=== PATIENT | female | born 1960 | race Caucasian/White ===

== ENCOUNTER → 2023-12-05 10:55 | Outpatient (REF) | payer MEDICARE, SELFPAY | LOC: RAD 10:55 | PROVIDERS: ATTENDING PHYSICIAN Nurse Practitioner Adult Health; FAMILY PHYSICIAN Family Medicine | DX: J90 Pleural effusion, not elsewhere classified (principal) | CPT/HCPCS: 71046 ==

== ENCOUNTER 2024-01-16 06:05 | Inpatient (IN) | payer MEDICARE, SELFPAY ==
[2024-01-15 09:31] VITALS: BMI 29.4
[2024-01-15 10:12] LABS: % Basophils 0.7 % (0-2); % Eosinophils 5.5 % (0-6); % Immature Granulocytes 0.5 % (0-0.5); % Neutrophils 70.3 % (42.2-75.2); Absolute Eosinophils 0.3 10^3/uL (0-0.7); Absolute Lymphocytes 0.9 10^3/uL (1.2-3.4); Absolute Monocytes 0.4 10^3/uL (0.1-0.6); Absolute Neutrophils 4.1 10^3/uL (1.4-6.5); Hematocrit 32.6 % (37.0-47.0); Mean Corp Hgb Conc. 30.7 g/dL (33.0-37.0); Mean Corpuscular Hgb 28.2 pg (27.0-31.0); Mean Corpuscular Volume 92.1 fL (81.0-99.0); Mean Platelet Volume 9.3 fL (7.4-10.4); Nucleated Red Blood Cells % 0 %; Platelet Count 212 10^3/uL (130-400); Red Blood Cell Count 3.54 10^6/uL (4.20-5.40); Red Cell Dist. Width 16.4 % (11.5-14.5); White Blood Cell Count 5.8 10^3/uL (4.8-10.8)
[2024-01-15 10:22] LABS: Blood Urea Nitrogen 35 mg/dl (7-17); Calcium 9.5 mg/dl (8.4-10.2); Carbon Dioxide 21 mmol/L (22-30); Chloride 105 mmol/L (98-107); Estimated Creatinine Clearance 73 ml/min; Glucose 93 mg/dl (70-99); Potassium 4.4 mmol/L (3.5-5.1); Sodium 138 mmol/L (135-145); eGFR > 60.00
[2024-01-15 10:24] LABS: INR 1.12; PT 14.2 Sec (11.4-14.6)
[2024-01-16] VITALS (15 sets, daily range): BP systolic 93–152; BP diastolic 39–98; BMI 29.8
[2024-01-16 06:56] LABS: Glucose - Point of Care 73 mg/dl (70-99)
--- NOTE | 2024-01-16 07:02 | W.SUR.PREOP ---
Pre-Operative Surgical Note
-
I have examined this patient prior to the performance of the scheduled procedure.
The patient's condition is unchanged from the time of the current History and
Physical and the patient is able to undergo the scheduled procedure.
[2024-01-16] MEDS: PERIDEX 0.12% ORAL RINSE 15 ML PO (07:17)
[2024-01-16] MEDS: BACTROBAN NASAL 1 GRAM NASAL (07:19)
[2024-01-16] MEDS: VANCOCIN 300 MG IV (07:22)
[2024-01-16] MEDS: VANCOCIN 300 ML IV (07:22)
[2024-01-16 09:17] LABS: ACT-LR - POC 302 Seconds (116-155)
--- NOTE | 2024-01-16 10:12 | W.IMMPOSTOP ---
Surgical Immed Post Op Note
-
Primary Surgeon: Suresh
Grey Goods Marker: Jeromy
Pre-op Diagnosis: LEFT carotid stenosis
Post-op Diagnosis: LEFT carotid stenosis
Procedure Performed: LEFT CEA
Anesthesia Type: General
Specimen / Cultures: Carotid plaque
Estimated Blood Loss: 25 cc
Complications: None
Operative Findings: carotid plaque/stenosis
Kenny Prince III, MD
[facility] Vascular Surgery
[phone] (qcjp)
--- NOTE | 2024-01-16 10:13 | OR.RPT ---
Operative Report
Operative Report
Date of Operation: 01/16/2024
Pre Op Diagnosis: Asymptomatic left carotid stenosis
Post Op Diagnosis: Asymptomatic left carotid stenosis
Procedure: LEFT carotid endarterectomy with patch angioplasty using bovine pericardium
Surgeon: Kenny Prince III, MD
Home Restoration Service Cleaner: FITO Millan (assisted with all portions of the procedure from incision to closure)
Anesthesia: General
Complications: None
History and Indications for Procedure: 63-year-old female with calcified left carotid stenosis, asymptomatic
Procedure in Detail: Ivy Krishnan was correctly identified and placed supine on the operating table. After adequate induction of anesthesia the left neck was positioned, prepped and draped in the usual sterile fashion. Preoperative antibiotics
were administered. A timeout procedure was performed with the nursing and anesthesia staff confirming the patients identity as well as the nature and laterality of the procedure.
The carotid bifurcation was marked with ultrasound at the beginning of the case. The incision was planned accordingly. An incision was made along the anterior border of the left sternocleidomastoid muscle. Electrocautery was used to divide the
subcutaneous tissue and platysma. The carotid sheath was entered with sharp dissection. The internal jugular vein was retracted laterally. The vagus nerve was identified and protected throughout the case. The common carotid artery was identified at
the base of this incision and carefully encircled with a vessel loop. The patient was systemically heparinized. The dissection was continued distally towards the carotid bifurcation. The facial vein was skeletonized, ligated and divided between ties
and clips. The proximal external carotid artery was encircled with a vessel loop. The distal internal carotid artery was encircled with a vessel loop at a soft spot on the artery beyond the plaque.
The internal vessel loop was secured followed by the common and external. An arteriotomy was made on the distal common carotid artery with an 11-blade. This was extended proximally and distally with [place]obedo scissors. The arteriotomy was extended
distally through the plaque to an area of normal appearing internal carotid artery. The distal vessel loop was replaced with a short tip hockey-stick type vascular clamp. An endarterectomy was performed with a [place] elevator in the standard
fashion. The proximal extent of the plaque was transected with scissors. The distal end of the plaque in the internal carotid artery feathered very nicely with no distal intimal flap identified. The plaque extending into the external carotid artery
was everted. Once the plaque was fully removed the endarterectomy plane was irrigated with heparinized saline and any loose fronds of tissue were removed. A pre-cut piece of bovine pericardium was sewn in place using a running 6-0 Prolene suture.
Prior to the completion of the patch the common carotid was allowed to forward bleed and the external was allowed to back bleed. The area under the patch was irrigated with heparinized saline to remove any potential thrombus or debris. The
anastomosis was completed.
The external vessel loop was released first, followed by the common and then the internal. There was an excellent pulse in the distal internal carotid artery. An excellent quality Doppler signal in the distal internal carotid artery was also
confirmed. The patch suture line was closely inspected for hemostasis and was achieved. Protamine was administered. Hemostasis was achieved in the wound bed. The wound was irrigated with saline solution.
The wound was then closed in layers. Sterile dressings were applied. The patient awoke from anesthesia with no immediate neuro deficits and was taken to the PACU in stable condition.
Attestation: I was present and responsible for the entire procedure
Signed:
Kenny Prince III, MD
[facility] Vascular Surgery
[phone] (cell)
[2024-01-16 10:58] LABS: Glucose - Point of Care 118 mg/dl (70-99)
[2024-01-16] MEDS: DILAUDID 0.5 MG IV ×2 (11:02→11:26)
[2024-01-16 11:25] LABS: Hematocrit 29.3 % (37.0-47.0); Hemoglobin 9.2 g/dL (12.0-16.0); Mean Corp Hgb Conc. 31.4 g/dL (33.0-37.0); Mean Corpuscular Hgb 28.5 pg (27.0-31.0); Mean Corpuscular Volume 90.7 fL (81.0-99.0); Platelet Count 177 10^3/uL (130-400); Red Blood Cell Count 3.23 10^6/uL (4.20-5.40); Red Cell Dist. Width 16.4 % (11.5-14.5); White Blood Cell Count 9.5 10^3/uL (4.8-10.8)
[2024-01-16 11:28] LABS: INR 1.18; PT 14.8 Sec (11.4-14.6)
[2024-01-16 11:29] LABS: APTT 35.9 Sec (23.4-35.0)
[2024-01-16] MEDS: NSS 1000 IV (11:34)
[2024-01-16 11:50] LABS: Blood Urea Nitrogen 24 mg/dl (7-17); Calcium 8.1 mg/dl (8.4-10.2); Carbon Dioxide 20 mmol/L (22-30); Chloride 112 mmol/L (98-107); Estimated Creatinine Clearance 97 ml/min; Glucose 134 mg/dl (70-99); Potassium 3.9 mmol/L (3.5-5.1); Sodium 138 mmol/L (135-145); eGFR > 60.00
[2024-01-16 12:40] LABS: Glucose - Point of Care 155 mg/dl (70-99)
[2024-01-16] MEDS: NOVOLOG FLEXPEN-LOW RESISTANCE SC (12:47)
[2024-01-16] MEDS: TYLENOL 650 MG PO ×2 (12:51→17:29)
[2024-01-16] MEDS: NEO-SYNEPHRINE 250 IV (12:51)
[2024-01-16] MEDS: ROXICODONE 5 MG PO (13:31)
--- NOTE | 2024-01-16 13:51 | PTCARENOTE ---
Updated assessment, vital signs ongoing and as documented. Follow up Icu procedures and protocols. Ongoing neuro checks as ordered. Family at bedside for update. Follow up with field installer team. Follow up with vascular team at bedside. Follow up vs
trends, map trends and ongoing neuro assessments. Patient remains aaox3, tongue midline, smile symmetrical, denies headache, only complaints of pain at incisional site and back of neck from previous surgeries(stenosis, fusion, and spinal arthritis)
Continue follow up assessment data.
[2024-01-16 14:09] LABS: Magnesium 1.2 mg/dl (1.6-2.3)
--- NOTE | 2024-01-16 15:06 | PTCARENOTE ---
Updated lab trends with vascular team. Lytes as ordered, continue ongoing assessment trends. Patient sleeping lightly, improved pain at this assessment, ice pack off and on to site with some relief. Continue follow rounds as per orders and protocol.
[2024-01-16] MEDS: MAGNESIUM SULFATE 50 IV (15:10)
[2024-01-16] MEDS: NEURONTIN 600 MG PO ×2 (15:11→20:51)
--- NOTE | 2024-01-16 16:45 | CON.INTV ---
Addendum entered and electronically signed by Aki Rose MD 01/16/24 18:06:
I saw and evaluated this patient with the resident. I reviewed history and physical examination, I agree with findings and plan.
Will continue with routine postoperative care.
Currently the patient is hemodynamically stable.
Her incision is intact. Patient does not have any stridor. There is no evidence for hematoma.
Will continue with ICU hemodynamic monitoring and frequent neurovascular checks per protocol.
Original Note:
Documented by User: Deisy Pandya MD, Resident 01/16/24 17:59
Consultation
Consultation Request
Date/Time Consultation Requested: 01/16/2024
Date/Time Consultation Performed: 01/16/2024
Medical History
-
Chief Complaint: Left carotid stenosis
History of Present Illness:
63 yo, female is here today for an elective left carotid endarterectomy. She was diagnosed with left internal carotid artery stenosis ( 85%)during the process of getting evaluated for elective aortic valve replacement/CABG that was done on
10/18/2023. Patient underwent left carotid endarterectomy with patch angioplasty today. No postoperative complications. Patient is comfortable and asymptomatic.
Past Medical History
Past Medical History: CAD, HTN, Hypercholesterolemia, NIDDM, Valvular Disease and Other ([id number] history of smoking, herniated disc, chronic back pain and opiate dependence)
Past Surgical History: Other (Hernia repair 2009, spinal surgery 2018, aortic valve replacement/CABG 2023, right carotid stent 2018)
Social History
Tobacco: Former Smoker (Quit smoking in 2022)
Alcohol: Occasional
Drug: None
Allergies / Home Medications
Allergies
Allergy/AdvReac Type Severity Reaction Status Date / Time
clams Allergy Vomiting Verified 01/10/24 13:08
Penicillins Allergy Hives Verified 01/10/24 13:08
pepper (genus Capsicum) Allergy Vomiting Verified 01/10/24 13:08
Home Medications
�Medication �Instructions �Recorded �Confirmed �Last Taken �Type
gabapentin 600 mg tablet 600 mg PO TID Neuropathic pain 10/03/23 01/16/24 01/15/24 18:00 History
acetaminophen 650 mg 1,300 mg PO BIDPRN PRN mild pain 10/08/23 01/16/24 01/15/24 18:00 History
tablet,extended release
aspirin 81 mg tablet,delayed 81 mg PO DAILY Blood Clot 10/08/23 01/16/24 01/15/24 18:00 History
release Prevention/Tx
ascorbic acid (vitamin C) 500 mg 500 mg PO DAILY Supplement #30 tabs 10/21/23 01/16/24 01/15/24 18:00 Rx
tablet (Vitamin C)
atenolol 25 mg tablet 25 mg PO HS Blood Pressure #30 tabs 10/21/23 01/16/24 01/15/24 18:00 Rx
atorvastatin 40 mg tablet 40 mg PO QPM High cholesterol #30 10/21/23 01/16/24 01/15/24 18:00 Rx
tabs
citalopram 40 mg tablet 40 mg PO HS Depression/Anxiety #10 10/21/23 01/16/24 01/15/24 18:00 Rx
tabs
diazepam 10 mg tablet 10 mg PO HSPRN PRN anxiety #10 tabs 10/21/23 01/16/24 01/15/24 18:00 Rx
ferrous sulfate 325 mg (65 mg 325 mg PO DAILY anemia #30 tabs 10/21/23 01/16/24 01/15/24 09:00 Rx
iron) tablet (FeroSul)
furosemide 20 mg tablet (Lasix) 20 mg PO DAILY Fluid 10/21/23 01/16/24 01/15/24 09:00 Rx
retention/Swelling #5 tabs
metformin 500 mg tablet 500 mg PO BID Diabetes #60 tabs 10/21/23 01/16/24 01/15/24 18:00 Rx
pantoprazole 40 mg tablet,delayed 40 mg PO DAILY #30 tabs 10/21/23 01/16/24 01/15/24 09:00 Rx
release
oxycodone-acetaminophen 10 mg-325 1 tab PO 5/D 01/10/24 01/16/24 01/16/24 03:30 History
mg tablet
Review of Systems
-
History Source: Patient
All other systems: Negative unless noted
Vitals / Labs / Diagnostic Testing
Vital Signs
Temp Pulse Resp BP Pulse Ox
98.0 F 76 13 148/66 96
01/16/24 15:00 01/16/24 16:30 01/16/24 16:30 01/16/24 16:00 01/16/24 16:30
Lab Data
01/16/24 11:06
01/16/24 11:06
Laboratory Results
01/16/24
11:06
PT 14.8 H
INR 1.18
APTT 35.9 H
Microbiology
01/15/24 09:41 Nose MRSA Screen - Final
No Methicillin Resistant Staphylococcus aureus isolated.
Diagnostic Testing:
Physical Exam
-
HEENT: Normocephalic
Cardiovascular: S1/S2 and Regular Rhythm
Respiratory: Clear
GI: Soft, Non Distended, Non Tender and Normal Bowel Sounds
Neurology: Awake, Alert, Oriented, AO x 3 and Other (Cranial nerves II to XII grossly intact, no focal neurological deficits, DTR/sensations/motor strength intact throughout)
Skin: Warm and Dry
General: Comfortable
Assessment
-
63-year-old female, underwent elective left carotid endarterectomy/angioplasty, POD day 0, transferred to the ICU for further management.
DATA:
Chest x-ray 01/16/2024:
Small left pleural effusion with subsegmental compressive atelectasis at the left lung base
Mild diffuse interstitial fibrosis
Stable postoperative changes with wire sternal sutures and prosthetic cardiac valve
MARVIN, 10/18/2023:
CONCLUSIONS
�Normal biventricular systolic function.� LVEF is 55-60%.� Severe aortic
�stenosis with severe leaflet calcification/restriction.� Calcified, restricted
�aortic stenosis with a mobile plaque on the right leaflet.� Restricted,
�calcified mitral regurgitation without stenosis and mild/moderate
�regurgitation.� Severely diseased thoracic aorta with a large (>1 cm) atheroma
�on the lesser curvature.
CTA Head/Neck, 10/12/2023:
IMPRESSION:
1).There is moderate volume partially calcific atherosclerotic plaque at the left carotid bifurcation extending into the origin of the left internal carotid artery associated with approximately 85% stenosis of the left internal carotid artery at its
origin
2).There is moderate volume partially calcific atherosclerotic plaque in the distal right common carotid artery just proximal to the carotid bifurcation associated with less than 50% stenosis. The right carotid bifurcation is widely patent and free
of any areas of significant stenosis
3). There is partially calcific atherosclerotic plaque in supraclinoid segments of both internal carotid arteries associated with near 70% stenosis bilaterally
4). There is degenerative disc disease with postoperative changes in the cervical spine as detailed above.
5). There is partially loculated right pleural effusion with underlying atelectasis.
Conditions prior to admission
Hypertension
Hyperlipidemia
CAD, s/p CABG
Aortic stenosis, s/p aortic valve replacement
Depression/anxiety
Former smoker
DM II
Herniated disk, s/p spinal surgery 2019
Chronic back pain & opiate dependence
IMPRESSION and PLAN
S/p left carotid endarterectomy/angioplasty, POD #0
No postoperative complications
Frequent neuro and vascular checks,
Vascular following up, operative report reviewed
Wound care, monitor incision for hematoma
Phenylephrine IV per protocol, to maintain MAP> 65
Continue on aspirin, Plavix, atorvastatin
Magnesium-1.2
Replete magnesium, 2 gm
Check magnesium level a.m.
Restart antihypertensive medications, use nicardipine drip needed, monitor blood pressure
Chronic anemia, follow hemoglobin
Follow blood sugars
Advance diet as tolerated
DVT prophylaxis�heparin sc

Documented by User: Aki Rose MD 01/16/24 18:05
Consultation
Consultation Request
Requesting Provider: Dr. Prince
Performing Provider: Dr. Aki Lyn
Reason for Consultation: Postoperative ICU care-status post carotic endarterectomy
Medical History
Family History
Family History: Reviewed & Not Pertinent
Physical Exam
-
HEENT: Other (Incision is intact. No stridor on exam.)
Assessment
-
63-year-old female, underwent elective left carotid endarterectomy/angioplasty, POD day 0, transferred to the ICU for further management.
Conditions prior to admission
Hypertension
Hyperlipidemia
CAD, s/p CABG
Aortic stenosis, s/p aortic valve replacement
Depression/anxiety
Former smoker
DM II
Herniated disk, s/p spinal surgery 2019
Chronic back pain & opiate dependence
Plan and recommendations
S/p left carotid endarterectomy/angioplasty, POD #0
No postoperative complications, doing well in the critical care unit.
Frequent neuro and vascular checks per protocol,
Vascular following up, operative report reviewed
Wound care, monitor incision for hematoma, there is no stridor on exam.
Phenylephrine IV per protocol, to maintain MAP> 65 if necessary.
Continue on aspirin, Plavix, atorvastatin
Magnesium-1.2, this has been repleted.
Check magnesium level a.m.
Restart antihypertensive medications, use nicardipine drip if needed, monitor blood pressure
Arterial line in place
Chronic anemia, follow hemoglobin
Follow blood sugars
Advance diet as tolerated
Increase activity as able
DVT prophylaxis�heparin sc
Maintain ICU hemodynamic monitoring.
-----
DATA:
Chest x-ray 01/16/2024:
Small left pleural effusion with subsegmental compressive atelectasis at the left lung base
Mild diffuse interstitial fibrosis
Stable postoperative changes with wire sternal sutures and prosthetic cardiac valve
MARVIN, 10/18/2023:
CONCLUSIONS
�Normal biventricular systolic function.� LVEF is 55-60%.� Severe aortic
�stenosis with severe leaflet calcification/restriction.� Calcified, restricted
�aortic stenosis with a mobile plaque on the right leaflet.� Restricted,
�calcified mitral regurgitation without stenosis and mild/moderate
�regurgitation.� Severely diseased thoracic aorta with a large (>1 cm) atheroma
�on the lesser curvature.
CTA Head/Neck, 10/12/2023:
[2024-01-16] MEDS: ROXICODONE 10 MG PO ×2 (16:53→20:58)
[2024-01-16 17:06] LABS: Glucose - Point of Care 178 mg/dl (70-99)
[2024-01-16] MEDS: LIPITOR 40 MG PO (17:29)
[2024-01-16] MEDS: NOVOLOG FLEXPEN-LOW RESISTANCE 1 UNITS SC (17:29)
--- NOTE | 2024-01-16 18:00 | PTCARENOTE ---
Assessment unchanged. Patient awake alert oriented, talking on phone, conversing with medical staff. Update at bedside, and in ICU with naval architect specialist team. IVF continue, neosynephrine remains off maintaining parameters. Lyte replacement completed will
follow lab trends and update. Continue neuro-checks, hourly rounds and supportive care.
--- NOTE | 2024-01-16 20:44 | PTCARENOTE ---
Pt received at 19:00. Ox3, appropriate, pleasant and cooperative. L neck incision well approximated, minimal bruising. c/o pain in L neck, PRN pain meds given as ordered. L radial A-line zeroed/transduced, correlating with cuff pressure. MAP goal
70-90, goal maintained.
[2024-01-16] MEDS: CELEXA 40 MG PO (20:51)
[2024-01-16] MEDS: HEPARIN 5000 UNITS SC (20:51)
[2024-01-16] MEDS: TENORMIN 25 MG PO (20:51)
[2024-01-16 22:07] LABS: Glucose - Point of Care 152 mg/dl (70-99)
[2024-01-17] VITALS (10 sets, daily range): BP systolic 94–127; BP diastolic 53–80; BMI 31.0
[2024-01-17] MEDS: ROXICODONE 10 MG PO ×3 (00:59→11:44)
[2024-01-17] MEDS: TYLENOL 650 MG PO ×3 (00:59→11:43)
[2024-01-17] MEDS: NSS 1000 IV (01:00)
--- NOTE | 2024-01-17 01:17 | PTCARENOTE ---
Assessment unchanged. C/O throat pain, chloraseptic spray ordered. Denies pain at incision site. C/O neck pain--chronic pain--PRN oxy given as ordered.
[2024-01-17] MEDS: DILAUDID 0.5 MG IV (02:08)
[2024-01-17] MEDS: CHLORASEPTIC/SORE THROAT SPRAY 1 SPRAY PO (02:09)
--- NOTE | 2024-01-17 04:10 | PTCARENOTE ---
Pt on neosynephrine at 10mcg/min. MAP goal 70-90, with dex off, MAP <70--with dex at 20mcg/min MAP >90. Pt continues to c/o pain the back of her neck, given PRN dilaudid--effective. Safe environment maintained, call abernathy within reach.
[2024-01-17 04:11] LABS: Hematocrit 27.3 % (37.0-47.0); Hemoglobin 8.4 g/dL (12.0-16.0); Mean Corp Hgb Conc. 30.8 g/dL (33.0-37.0); Mean Corpuscular Hgb 28.5 pg (27.0-31.0); Mean Corpuscular Volume 92.5 fL (81.0-99.0); Mean Platelet Volume 9.2 fL (7.4-10.4); Platelet Count 200 10^3/uL (130-400); Red Blood Cell Count 2.95 10^6/uL (4.20-5.40); Red Cell Dist. Width 16.3 % (11.5-14.5); White Blood Cell Count 8.2 10^3/uL (4.8-10.8)
[2024-01-17 04:22] LABS: INR 1.16; PT 14.6 Sec (11.4-14.6)
[2024-01-17 04:23] LABS: APTT 31.8 Sec (23.4-35.0)
[2024-01-17 04:36] LABS: Blood Urea Nitrogen 15 mg/dl (7-17); Calcium 8.8 mg/dl (8.4-10.2); Carbon Dioxide 22 mmol/L (22-30); Chloride 108 mmol/L (98-107); Estimated Creatinine Clearance 99 ml/min; Glucose 96 mg/dl (70-99); Potassium 4.2 mmol/L (3.5-5.1); Sodium 136 mmol/L (135-145); eGFR > 60.00
[2024-01-17 07:14] LABS: Glucose - Point of Care 99 mg/dl (70-99)
[2024-01-17] MEDS: PROTONIX 40 MG PO (07:39)
[2024-01-17] MEDS: NEURONTIN 600 MG PO (07:39)
[2024-01-17] MEDS: ASPIR LOW (ENTERIC COATED) 81 MG PO (07:40)
[2024-01-17] MEDS: GLUCOPHAGE 500 MG PO (07:40)
[2024-01-17] MEDS: NOVOLOG FLEXPEN-LOW RESISTANCE SC ×2 (07:40→11:39)
[2024-01-17] MEDS: FEOSOL 325 MG PO (07:40)
[2024-01-17] MEDS: VITAMIN C 500 MG PO (07:40)
[2024-01-17] MEDS: HEPARIN 5000 UNITS SC (07:41)
--- NOTE | 2024-01-17 08:10 | W.PN.VS ---
Today's Communication / Plan
-
See below.
Assessment/Plan
-
Assessment: 63-year-old female POD #1 left carotid endarterectomy
Plan:
Discontinue arterial line
Discontinue IV fluids
OOB to chair with progression to ambulation as tolerated
Continue aspirin and statin therapy
Possible discharge later this afternoon pending toleration of ambulation and continued hemodynamic stability
Subjective Data
-
Date of Service: January 17, 2024
Patient seen and examined bedside, no acute events overnight. Patient offers no complaints. Reports adequate postoperative pain management. Does report continued chronic pain that is well-controlled with as needed pain medication. Tolerating
p.o. diet. Denies vision changes, unilateral weakness, facial droop, aphasia, dysarthria, or difficulty swallowing.
Objective Data
-
Vital Signs
Temp Pulse Resp BP Pulse Ox
98.3 F 68 15 99/60 97
01/17/24 07:34 01/17/24 03:45 01/17/24 03:45 01/17/24 02:01 01/17/24 03:45
Intake and Output
01/16/24 01/17/24 01/18/24
06:59 06:59 06:59
Intake Total 2683 / 3003 320 / 320
Output Total 1100 / 1500 400 / 400
Balance 1583 / 1503 -80 / -80
Intake:
Oral fluids 960 / 1200 240 / 240
IV fluids (Total) 1673 / 1753 80 / 80
Neopsynephrine 50mg/250ml 33 / 33 0 / 0
Normosol 200 / 200
Nss 1,000 ml @ 80 mls/hr IV . 1440 / 1520 80 / 80
[id number] EYAL Rx#:[id number]
IV piggybacks 50 / 50
Output:
Urine, Prince 500 / 500
Urine, Voided 600 / 1000 400 / 400
Other:
How many times incontinent 1
MODERATE amount urine
Lab Results
01/17/24 04:02
01/17/24 04:02
Calcium 8.8 mg/dl (8.4-10.2) 01/17/24 04:02
Magnesium 2.0 mg/dl (1.6-2.3) 01/17/24 04:02
Physical Exam
-
AAOx3, no apparent distress
Face symmetrical, left surgical neck incision CDI, no evidence of hematoma
No tachycardia
No dyspnea on room air
Bilateral upper extremities and lower extremities 5/5 strength and equal
ABD nondistended, nontender
--- NOTE | 2024-01-17 08:19 | PTCARENOTE ---
Update with vascular and dental assistant instructor teams this am. Plan to deline, cap ivf adv diet out of bed to chair and follow up afternoon reevaluation. Continue neuro-checks. Continue hourly rounds. Follow up assessment, vital signs ongoing and as
documented. Critcal care nursing in and out at bedside.
--- NOTE | 2024-01-17 09:42 | CM ---
CM following re: discharge planning.
Reviewed pt's chart, met with pt.
Pt is a 63 year old female, admitted with primary dx of POD #1 s/p left carotid endarterectomy. Per Vascular surgery pt probably will be discharged home this afternoon pending toleration of ambulation and continued hemodynamic stability. Pt is
aware, expressed her agreement and she stated her daughter will transport home at discharge.
Pt reports she lives with youngest daughter in a 2SH, 2 steps to enter, has 3 supportive children. 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 Pt reports she was going to outpatient
cardiac rehab and she would like to resume it at discharge. Pt reports she will resume outpatient cardiac rehab after 2 weeks of discharge. Pt reports no script for outpatient cardiac rehab is needed
PCP: Fransisco Reese
Pharmacy: [facility].
D/C plan: home with resumptions of cardiac rehab after 2 weeks of discharge. Daughter to transport.
No other discharge needs identified.
--- NOTE | 2024-01-17 10:42 | W.PN.INTV ---
Today's Communication / Plan
Recommendations
Continue postoperative care
Discontinue arterial line
Increase activity as able
Discharge planning
Sign off
Assessment
-
63-year-old female, underwent elective left carotid endarterectomy/angioplasty, POD day 0, transferred to the ICU for further management.
Conditions prior to admission
Hypertension
Hyperlipidemia
CAD, s/p CABG
Aortic stenosis, s/p aortic valve replacement
Depression/anxiety
Former smoker
DM II
Herniated disk, s/p spinal surgery 2019
Chronic back pain & opiate dependence
Plan and recommendations
S/p left carotid endarterectomy/angioplasty, POD #1
Doing very well today.
Pain is controlled
Neurologic semination stable without deficit.
Incision is intact, no stridor on exam. No hematoma.
Hemodynamically stable. Did not require Cardene drip.
Continue outpatient medications
Discontinue IV fluids
Magnesium has been repleted.
Renal function is normal.
Vascular correspondence reviewed.
Arterial line to be discontinued
Increase activity as able
Continue antiplatelets and statins.
Possible discharge later today.
Critical care team will sign off.
-----
DATA:
Chest x-ray 01/16/2024:
Small left pleural effusion with subsegmental compressive atelectasis at the left lung base
Mild diffuse interstitial fibrosis
Stable postoperative changes with wire sternal sutures and prosthetic cardiac valve
MARVIN, 10/18/2023:
CONCLUSIONS
�Normal biventricular systolic function.� LVEF is 55-60%.� Severe aortic
�stenosis with severe leaflet calcification/restriction.� Calcified, restricted
�aortic stenosis with a mobile plaque on the right leaflet.� Restricted,
�calcified mitral regurgitation without stenosis and mild/moderate
�regurgitation.� Severely diseased thoracic aorta with a large (>1 cm) atheroma
�on the lesser curvature.
CTA Head/Neck, 10/12/2023:
IMPRESSION:
1).There is moderate volume partially calcific atherosclerotic plaque at the left carotid bifurcation extending into the origin of the left internal carotid artery associated with approximately 85% stenosis of the left internal carotid artery at its
origin
2).There is moderate volume partially calcific atherosclerotic plaque in the distal right common carotid artery just proximal to the carotid bifurcation associated with less than 50% stenosis. The right carotid bifurcation is widely patent and free
of any areas of significant stenosis
3). There is partially calcific atherosclerotic plaque in supraclinoid segments of both internal carotid arteries associated with near 70% stenosis bilaterally
4). There is degenerative disc disease with postoperative changes in the cervical spine as detailed above.
5). There is partially loculated right pleural effusion with underlying atelectasis.
Subjective Dataa
Subjective Data
Date of Service:
Date of Service: January 17, 2024
Chief Complaint: Finisher Screwdown Follow Up (Status post coronary endarterectomy)
Subjective:
Patient stays at she had a good night.
Denies any pain.
Denies any headache or blurry vision.
Review of Systems
General: Fever (n)
Cardiopulmonary: Dyspnea (n) and Cough (n)
GI: Abdominal Pain (n), Nausea (n) and Vomiting (n)
Objective Data
Data Reviewed
Vital Signs / I&O / Oxygen:
Vital Signs
Temp Pulse Resp BP Pulse Ox
98.3 F 74 12 106/57 98
01/17/24 07:34 01/17/24 09:00 01/17/24 09:00 01/17/24 07:44 01/17/24 08:16
Intake and Output
01/16/24 01/17/24 01/18/24
06:59 06:59 06:59
Intake Total 2683 / 3003 344 / 344
Output Total 1100 / 1500 700 / 700
Balance 1583 / 1503 -356 / -356
SaO2 98
Nasal Cannula flow liters per 2
minute
Physical Exam
General: Comfortable
HEENT: Normocephalic, Other (No stridor on exam) and Other (Cervical incision intact. No hematoma.)
Cardiovascular: S1-S2
Respiratory: Clear and Non-Labored Respirations
GI: Soft and Non Distended
Neurology: Awake, Alert, Oriented and No Motor Deficits
Labs/Micro/Reports
Lab Data
01/17/24 04:02
01/17/24 04:02
Laboratory Results
01/16/24 01/17/24
11:06 04:02
PT 14.8 H 14.6
INR 1.18 1.16
APTT 35.9 H 31.8
Microbiology
01/15/24 09:41 Nose MRSA Screen - Final
No Methicillin Resistant Staphylococcus aureus isolated.
--- NOTE | 2024-01-17 11:37 | PTCARENOTE ---
Patient delined. IVF capped tolerating diet and po fluids. Out of bed ambulate room and to bathroom with supervision. Denies and incisional pain. Improved chronic back and neck pain in chair. Accu data as documented. Await afternoon follow up and
evaluation. Assessment unchanged.
[2024-01-17 11:46] LABS: Glucose - Point of Care 113 mg/dl (70-99)
--- NOTE | 2024-01-17 12:39 | PTCARENOTE ---
Patient ambulate with staff at side. Walked entire IMU and low side of [facility] with supervision. Tolerated very well, VSS pre and post ambulation. !00
--- NOTE | 2024-01-17 14:30 | PTCARENOTE ---
Update with vascular at bedside with family. Delined, update discharge plan of cares and teaching prepping for dc to home. Reviewed and reinforced with family at bedside.
--- NOTE | 2024-01-17 14:57 | PTCARENOTE ---
Discharge instructions reviewed and provide for patient and family. Verbalizes satisfaction of cares, verbalizes understanding of instructions. Discharge.
--- NOTE | 2024-01-17 15:31 | W.DCSUMMARY ---
Discharge Summary
Discharge Data
Date of Admission: 01/16/24
Date of Discharge: 01/17/24
-
Pending Results: No
Hospital Course
Attending: Kenny Prince III, MD
Consultants: Pulmonary medicine
Allergies: Clams, penicillin, pepper
Procedure with date: LEFT carotid endarterectomy with patch angioplasty using bovine pericardium, 01/16/2024
History of present illness: The patient is an 63-year-old female with multiple medical conditions including: carotid stenosis, shortness of breath, aortic stenosis, depression, obesity, diabetes, hyperlipidemia, hypertension, coronary artery
disease, COPD, spinal stenosis, pleural fusion, pneumonia, COPD, and kidney stones. Patient presented on 01/16/2024 for scheduled procedure with Dr. Prince. Patient presented at baseline health with no reports of recent illness or trauma.
Hospital Course: Briefly, the patient underwent scheduled left carotid endarterectomy without complications, and recovered in PACU. Following recovery phase one and two patient was transferred to intensive care unit per protocol for continued
hemodynamic monitoring. Glue Plant Operator consulted to aid in medical management from a critical care perspective. Briefly postoperative required minimal dose of Jack-Synephrine infusion for blood pressure stability, was discontinued overnight. POD #1
(01/17/2024) Patient neurologically intact, face symmetrical, and tolerating PO diet. Surgical left neck incision clean, dry, and intact with suture line well approximated and soft. No evidence of hematoma. Arterial line and IV fluids discontinued.
Patient able to ambulate without difficulty or incident. Patient stable for discharge to home.
Prescriptions and follow up appointment are included in the DC summary food concession manager note. All instructions were given to the patient in both written and verbal form and the patient expressed understanding.
Discharge Plan
-
Patient Disposition: Home (Routine Discharge)
Discharge Diagnosis/Procedures: Left carotid endarterectomy
Condition: Good
Diet: As tolerated
Activity: No strenuous activity
Driving Restrictions: Not until seen by your Dr
Bathing Restrictions: OK to Shower
Activity Restrictions/Additional Instructions:
If you experience severe constant headache, weakness to an arm or leg, change in vision, trouble speaking or any stroke-like symptom, call 911 immediately
If you experience swelling, increased bruising, drainage from neck site, or fever, please call the office
Stand Alone Forms: DC Instr - Vascular OR
Referrals:
Fransisco Reese MD [Family Provider] -
Jenny Tarango CRNP [Specified Professional Personl] - 01/30/24 10:45 am
Prescriptions:
Continued
gabapentin 600 mg Tablet
600 mg PO TID
aspirin 81 mg Tablet,Delayed Release (Dr/Ec)
81 mg PO DAILY
acetaminophen 650 mg Tablet Extended Release
1,300 mg PO BIDPRN PRN (Reason: mild pain)
ferrous sulfate [FeroSul] 325 mg (65 mg iron) Tablet
325 mg PO DAILY Qty: 30 0RF
atorvastatin 40 mg Tablet
40 mg PO QPM Qty: 30 1RF
ascorbic acid (vitamin C) [Vitamin C] 500 mg Tablet
500 mg PO DAILY Qty: 30 0RF
pantoprazole 40 mg Tablet,Delayed Release (Dr/Ec)
40 mg PO DAILY Qty: 30 0RF
furosemide [Lasix] 20 mg tablet
20 mg PO DAILY Qty: 5 0RF
atenolol 25 mg Tablet
25 mg PO HS Qty: 30 1RF
metformin 500 mg tablet
500 mg PO BID Qty: 60 0RF
citalopram 40 mg Tablet
40 mg PO HS Qty: 10 0RF
diazepam 10 mg Tablet
10 mg PO HSPRN PRN (Reason: anxiety) Qty: 10 0RF
oxycodone-acetaminophen 10-325 mg Tablet
1 tab PO 5/D
Discharge Orders:
Discharge Patient (As Directed); Ordered 01/17/24
Ordered By: Sonia Pinzon
Discharge Date and Time
Discharge Date/Time: 01/17/24 15:19
Print Language: [place] CITIZEN
--- NOTE | 2024-01-17 15:35 | W.DS.TRANS ---
DC Summary - Business Performance Specialist
-
Discharge Instructions:
Discharge Diagnosis/Procedures Left carotid endarterectomy
Diet As tolerated
Activity No strenuous activity
Driving Restrictions Not until seen by your Dr
Bathing Restrictions OK to Shower
Instructions:
Stand-Alone Forms: DC Instr - Vascular OR
Changes to Home Medications: No
Discharge Medications:
DC Medications w/original date entered in [facility]
gabapentin 600 mg tablet 600 mg PO TID Neuropathic pain 10/03/23
acetaminophen 650 mg tablet,extended release 1,300 mg PO BIDPRN PRN mild pain 10/08/23
aspirin 81 mg tablet,delayed release 81 mg PO DAILY Blood Clot Prevention/Tx 10/08/23
ascorbic acid (vitamin C) 500 mg tablet (Vitamin C) 500 mg PO DAILY Supplement #30 tabs 10/21/23
atenolol 25 mg tablet 25 mg PO HS Blood Pressure #30 tabs 10/21/23
atorvastatin 40 mg tablet 40 mg PO QPM High cholesterol #30 tabs 10/21/23
citalopram 40 mg tablet 40 mg PO HS Depression/Anxiety #10 tabs 10/21/23
diazepam 10 mg tablet 10 mg PO HSPRN PRN anxiety #10 tabs 10/21/23
ferrous sulfate 325 mg (65 mg iron) tablet (FeroSul) 325 mg PO DAILY anemia #30 tabs 10/21/23
furosemide 20 mg tablet (Lasix) 20 mg PO DAILY Fluid retention/Swelling #5 tabs 10/21/23
metformin 500 mg tablet 500 mg PO BID Diabetes #60 tabs 10/21/23
pantoprazole 40 mg tablet,delayed release 40 mg PO DAILY #30 tabs 10/21/23
oxycodone-acetaminophen 10 mg-325 mg tablet 1 tab PO 5/D Pain 01/10/24
Home Medication Changes
Pending Results: No
== END 2024-01-17 15:19 | disposition home or self-care (01) | DRG 38 ==
LOC: ICU 06:05
PROVIDERS: Nurse Practitioner; ADMITTING PHYSICIAN Surgery Vascular Surgery; FAMILY PHYSICIAN Family Medicine; OTHER PHYSICIAN Internal Medicine Critical Care Medicine
PROC: 03CJ0ZZ Extirpation of Matter from Left Common Carotid Artery, Open Approach (ICD-10-PCS; 2024-01-16)
PROC: 03UL0KZ Supplement Left Internal Carotid Artery with Nonautologous Tissue Substitute, Open Approach (ICD-10-PCS; 2024-01-16)
PROC: 03CN0ZZ Extirpation of Matter from Left External Carotid Artery, Open Approach (ICD-10-PCS; 2024-01-16)
PROC: 03CL0ZZ Extirpation of Matter from Left Internal Carotid Artery, Open Approach (ICD-10-PCS; 2024-01-16)
DX: I65.22 Occlusion and stenosis of left carotid artery (principal); F11.20 Opioid dependence, uncomplicated; J98.11 Atelectasis; J90 Pleural effusion, not elsewhere classified; I08.0 Rheumatic disorders of both mitral and aortic valves; I25.10 Atherosclerotic heart disease of native coronary artery without angina pectoris; Z87.891 Personal history of nicotine dependence; I10 Essential (primary) hypertension; E78.00 Pure hypercholesterolemia, unspecified; F41.9 Anxiety disorder, unspecified; F32.A Depression, unspecified; E11.9 Type 2 diabetes mellitus without complications; N20.0 Calculus of kidney; G89.29 Other chronic pain; E66.9 Obesity, unspecified; D64.9 Anemia, unspecified; Z68.31 Body mass index [BMI] 31.0-31.9, adult
CPT/HCPCS: 88304; 88311; 35301; 36415; 71045; 80048; 82962; 83735; 85025; 85027; 85610; 85730; 86850; 86900; 86901; 87070

== ENCOUNTER 2024-01-23 13:50 | Inpatient (IN) | payer MEDICARE, SELFPAY ==
[2024-01-23] VITALS (12 sets, daily range): BP systolic 132–179; BP diastolic 69–119; BMI 32.6; BMI 30.8
--- NOTE | 2024-01-23 10:32 | ED.GENMED ---
History of Present Illness
<Griselda Mcqueen PA-C - Last Filed: 01/23/24 15:36>
General
Chief Complaint: Swelling
Source: patient
Exam Limitations: none
Time Seen by Provider: 01/23/24 10:27
Nursing documentation reviewed up to this point in time: agreed with
Travel History
Have you had any contact with someone who has COVID-19?: No
Do you have any symptoms of coronavirus? Fever > 100 degrees, chills, cough, shortness of breath, sore throat, loss of taste or smell, muscle aches, or headache?: No
History of Present Illness
History of Present Illness:
This is a 63 y/o female with PMH of aortic stenosis, hypertension, hyperlipidemia, GERD, diabetes, carotid stenosis s/p left carotid endarterectomy day 7 presenting emergency department today with anterior neck pain, dysphagia, and left-sided facial
pain/headache for the past few days. Patient states that after her operation, she had some swelling which she thought was normal postoperative healing, however the swelling persisted and has been progressively getting larger. Patient states that
she is not eating or drinking much the past few days due to the degree of dysphagia. Patient admits to some mild dizziness as well that started yesterday. Patient denies shortness of breath, chest pain, abdominal pain, back pain. Patient denies
any fevers or chills. Patient denies purulent drainage from her wound, wound dehiscence.
Past History
<Griselda Mcqueen PA-C - Last Filed: 01/23/24 15:36>
Past History
ED Past Medical History: CAD, GERD, HTN, Hypercholesterolemia, NIDDM and Valvular disease (Aortic stenosis)
Social History
Tobacco: Former smoker
Family History
Family History: CAD
Review of Systems
<Griselda Mcqueen PA-C - Last Filed: 01/23/24 15:36>
Review of Systems
All Other Systems: ROS reviewed and negative except as documented in HPI and ROS
Phy Exam
<Griselda Mcqueen PA-C - Last Filed: 01/23/24 15:36>
Physical Exam
Physical Exam:
Vitals: Patient is hypertensive, otherwise vitals are stable
General: Patient is ill-appearing, however in no acute distress
Skin: Erythema of the anterior neck with circumferential swelling more profound on the left side. Carotid endarterectomy incision site intact with no active drainage, no signs of infection.
Head: Normocephalic, atraumatic. Full ROM of b/l TMJ joints, no trismus.
Eyes: Anicteric, EOMs, PERRLA
Neck: See skin exam. Anterior neck exquisitely tender to palpation. No carotid bruits. No cervical lymphadenopathy.
Cardiac: Regular rate and rhythm, no murmurs
Pulm: Normal respiratory effort, no wheezes, rales, or rhonchi
Abdomen: Abdomen is soft and non-tender
Musculoskeletal: Strength 5/5 b/l upper and lower extremities.
Neuro: CN II-XII intact. No focal neurologic deficits.
Scores
<Griselda Mcqueen PA-C - Last Filed: 01/23/24 15:36>
Heart Failure Risk
Heart Failure Risk Score: Not Applicable
Course
<CHARLIE Navarro Last Filed: 01/23/24 15:36>
Orders/Labs/Results
Orders:
Orders
01/23/24 10:28
CT Head & Neck Angio W/wo IV Urgent
Comment:
Reason For Exam: s/p CEA, left sided neck swelling
01/23/24 10:38
EKG [Electrocardiogram (*1)] Urgent
Reason for Study: Vertigo / Dizzy
01/23/24 10:39
EKG- Treatment ONCE
01/23/24 10:43
HYDROmorphone [Dilaudid] 0.5 mg IV NOW STA
Ondansetron Injectable [Zofran] 4 mg IV NOW STA
01/23/24 11:00
Basic Metabolic Panel Urgent
PTT Urgent
Prothrombin Time Urgent
01/23/24 11:01
Type+Screen Urgent
Complete Blood Count/With Diff Urgent
01/23/24 13:31
Admit/Transfer Patient As Directed
Co-Sign Provider:
Level of Care: Inpatient admission
Assign to:: IMU- Intermediate Care
Physician / Group: Vascular Surgery
Diagnosis: s/p carotid endarterectomy, GUTIÉRREZ
Reason for Hospitalization: GUTIÉRREZ, HTN, s/p carotid endarterectomy
Expected length of stay greater than two midnights?: Yes
ELOS- Estimated Length of Stay in days: 2
I certify the patient meets the requirements for IP care: Yes
01/23/24 13:35
Code Status As Directed
Resuscitation Status: Full Code
01/23/24 14:57
Bisacodyl [Dulcolax] 10 mg RECTAL DAILYPRN PRN
Diazepam [Valium] 5 mg PO HSPRN PRN
acetaminophen 1,300 mg PO BIDPRN PRN
01/23/24 14:57
Admit Patient As Directed
Co-Sign Provider:
Level of Care: Inpatient admission
Assign to:: IMU- Intermediate Care
Physician / Group: Vascular
Diagnosis: GUTIÉRREZ, HTN, dysphagia s/p carotid endarterectomy
Reason for Hospitalization: s/p carotid endart with concern for hyper perfusion
Expected length of stay greater than two midnights?: No
ELOS- Estimated Length of Stay in days: 2
I certify the patient meets the requirements for IP care: Yes
Activity As Directed
Activity Level: Out of Bed- Ad Niurka
Intake/ Output As Directed
Frequency: Per unit guidelines
Vital Signs As Directed
Frequency: Per unit guidelines
Speech Therapy Eval & Treat Routine
Treatment: dysphagia s/p left CEA
DX Deep Vein Thrombosis Video Routine
01/23/24 15:00
oxycodone-acetaminophen 1 tablet PO 5/D
01/23/24 16:00
Gabapentin [Neurontin] 600 mg PO TID
01/23/24 17:00
METFORMIN HCl [Glucophage] 500 mg PO BID@0800,1700
01/23/24 18:00
Atorvastatin [Lipitor] 20 mg PO QPM
01/23/24 20:00
Heparin 5,000 units SC Q12
01/23/24 22:00
Citalopram [Celexa] 40 mg PO HS
01/24/24 08:00
Aspirin Low Dose EC [Aspir Low (Enteric Coated)] 81 mg PO DAILY
Ferrous Sulfate [Feosol] 325 mg PO DAILY
Furosemide [Lasix] 40 mg PO DAILY
Pantoprazole [Protonix] 40 mg PO DAILY
Abnormal Lab Results
01/23/24 01/23/24
11:00 11:01
RBC 3.12 L 10^6/uL
(4.20-5.40)
Hgb 9.0 L g/dL
(12.0-16.0)
Hct 29.1 L %
(37.0-47.0)
MCHC 30.9 L g/dL
(33.0-37.0)
RDW 16.3 H %
(11.5-14.5)
Absolute Lymphs (auto) 0.6 L 10^3/uL
(1.2-3.4)
Lymphocytes % 10.5 L %
(20.5-51.1)
PT 14.9 H Sec
(11.4-14.6)
APTT 35.6 H Sec
(23.4-35.0)
Chloride 108 H mmol/L
(98-107)
Creatinine 0.5 L mg/dL
(0.6-1.0)
Glucose 101 H mg/dl
(70-99)
01/23/24 11:01
01/23/24 11:00
Vital Signs
Initial and Last Documented VS:
Initial Vital Signs
Temp Pulse Resp BP Pulse Ox
98.9 F 91 16 173/82 93
01/23/24 10:18 01/23/24 10:18 01/23/24 10:18 01/23/24 10:18 01/23/24 10:18
Last Documented Vital Signs
Temp Pulse Resp BP Pulse Ox
98.9 F 91 16 147/82 93
01/23/24 10:18 01/23/24 14:00 01/23/24 10:18 01/23/24 14:00 01/23/24 14:00
<Thomas Chacko MD - Last Filed: 01/23/24 16:13>
Orders/Labs/Results
Orders:
Orders
01/23/24 10:28
CT Head & Neck Angio W/wo IV Urgent
Comment:
Reason For Exam: s/p CEA, left sided neck swelling
01/23/24 10:38
EKG [Electrocardiogram (*1)] Urgent
Reason for Study: Vertigo / Dizzy
01/23/24 10:39
EKG- Treatment ONCE
01/23/24 10:43
HYDROmorphone [Dilaudid] 0.5 mg IV NOW STA
Ondansetron Injectable [Zofran] 4 mg IV NOW STA
01/23/24 11:00
Basic Metabolic Panel Urgent
PTT Urgent
Prothrombin Time Urgent
01/23/24 11:01
Type+Screen Urgent
Complete Blood Count/With Diff Urgent
01/23/24 13:31
Admit/Transfer Patient As Directed
Co-Sign Provider:
Level of Care: Inpatient admission
Assign to:: IMU- Intermediate Care
Physician / Group: Vascular Surgery
Diagnosis: s/p carotid endarterectomy, GUTIÉRREZ
Reason for Hospitalization: GUTIÉRREZ, HTN, s/p carotid endarterectomy
Expected length of stay greater than two midnights?: Yes
ELOS- Estimated Length of Stay in days: 2
I certify the patient meets the requirements for IP care: Yes
01/23/24 13:35
Code Status As Directed
Resuscitation Status: Full Code
01/23/24 14:57
Bisacodyl [Dulcolax] 10 mg RECTAL DAILYPRN PRN
Diazepam [Valium] 5 mg PO HSPRN PRN
acetaminophen 1,300 mg PO BIDPRN PRN
01/23/24 14:57
Admit Patient As Directed
Co-Sign Provider:
Level of Care: Inpatient admission
Assign to:: IMU- Intermediate Care
Physician / Group: Vascular
Diagnosis: GUTIÉRREZ, HTN, dysphagia s/p carotid endarterectomy
Reason for Hospitalization: s/p carotid endart with concern for hyper perfusion
Expected length of stay greater than two midnights?: No
ELOS- Estimated Length of Stay in days: 2
I certify the patient meets the requirements for IP care: Yes
Activity As Directed
Activity Level: Out of Bed- Ad Niurka
Intake/ Output As Directed
Frequency: Per unit guidelines
Vital Signs As Directed
Frequency: Per unit guidelines
Speech Therapy Eval & Treat Routine
Treatment: dysphagia s/p left CEA
DX Deep Vein Thrombosis Video Routine
01/23/24 15:00
oxycodone-acetaminophen 1 tablet PO 5/D
01/23/24 16:00
Gabapentin [Neurontin] 600 mg PO TID
01/23/24 17:00
METFORMIN HCl [Glucophage] 500 mg PO BID@0800,1700
01/23/24 18:00
Atorvastatin [Lipitor] 20 mg PO QPM
01/23/24 20:00
Heparin 5,000 units SC Q12
01/23/24 22:00
Citalopram [Celexa] 40 mg PO HS
01/24/24 08:00
Aspirin Low Dose EC [Aspir Low (Enteric Coated)] 81 mg PO DAILY
Ferrous Sulfate [Feosol] 325 mg PO DAILY
Furosemide [Lasix] 40 mg PO DAILY
Pantoprazole [Protonix] 40 mg PO DAILY
Abnormal Lab Results
01/23/24 01/23/24
11:00 11:01
RBC 3.12 L 10^6/uL
(4.20-5.40)
Hgb 9.0 L g/dL
(12.0-16.0)
Hct 29.1 L %
(37.0-47.0)
MCHC 30.9 L g/dL
(33.0-37.0)
RDW 16.3 H %
(11.5-14.5)
Absolute Lymphs (auto) 0.6 L 10^3/uL
(1.2-3.4)
Lymphocytes % 10.5 L %
(20.5-51.1)
PT 14.9 H Sec
(11.4-14.6)
APTT 35.6 H Sec
(23.4-35.0)
Chloride 108 H mmol/L
(98-107)
Creatinine 0.5 L mg/dL
(0.6-1.0)
Glucose 101 H mg/dl
(70-99)
01/23/24 11:01
01/23/24 11:00
Vital Signs
Initial and Last Documented VS:
Initial Vital Signs
Temp Pulse Resp BP Pulse Ox
98.9 F 91 16 173/82 93
01/23/24 10:18 01/23/24 10:18 01/23/24 10:18 01/23/24 10:18 01/23/24 10:18
Last Documented Vital Signs
Temp Pulse Resp BP Pulse Ox
98.9 F 91 16 147/82 93
01/23/24 10:18 01/23/24 14:00 01/23/24 10:18 01/23/24 14:00 01/23/24 14:00
<Griselda Mcqueen PA-C - Last Filed: 01/23/24 15:36>
MDM/Problems Addressed
Differential Diagnosis Includes:
ddx include cervical hematoma, carotid pseudoaneurysm, stroke, jugular venous thrombosis, cellulitis, soft tissue swelling/post operative healing
MDM/Problems Addressed:
neck pain
dysphagia
Chronic conditions affecting care: DM, HTN, CAD and Other (GERD, hypercholesterolemia, aortic stenosis )
Acute Exacerbation and/or Progression of Chronic Illness: DM, HTN, CAD and Other (GERD, hypercholesterolemia, aortic stenosis )
<Griselda Mcqueen PA-C - Last Filed: 01/23/24 15:36>
*Pulse Oximetry
Patient hypoxic: no
*EKG
Interpreted by ED Provider?: Yes
EKG Intrepretation Date: 01/23/24
Interpretation: abnormal
Comparison EKG: no changes
Rate: tachycardiac
Rhythm: sinus
[place]: normal axis
Interval: normal interval, normal QT interval and normal UT interval
QRS Pattern: normal QRS
Ischemia: no ischemia
*Critical Care Note
Total Time (30-74mins, 75-104mins- exclusive of procedures): Not Applicable
Data Reviewed
Review of Other/Old Records Reveals: Records (Reviewed ER physician documentation from 10/08/2023) and Discharge Summary (Reviewed vascular discharge summary from 01/17/2024)
Source: patient and records
<Griselda Mcqueen PA-C - Last Filed: 01/23/24 15:36>
Patient Management
Escalation/DeEscalation of care consider admission/obs:
This is a 63 y/o female with PMH of aortic stenosis, hypertension, hyperlipidemia, GERD, diabetes, carotid stenosis s/p left carotid endarterectomy day 7 presenting emergency department today with anterior neck pain, dysphagia, and left-sided facial
pain/headache for the past few days. On exam, patient does have visible swelling around the anterior neck and significant tenderness palpation. Patient hypertensive upon arrival to the emergency department. Here in emergency department, patient
had a CTA performed which demonstrated fluid in the surgical bed consistent with either edema or seroma but no stenosis, no dissection, ecchymosis. Spoke to Dr. Prince and Sonia Pinzon PA-C who recommends admission to their service for blood pressure
management to due concern for hyperperfusion syndrome. Patient in agreement with plan.
ED Attending Note
<Griselda Mcqueen PA-C - Last Filed: 01/23/24 15:36>
-
Portions of this chart may have been created with voice recognition software.� Occasional wrong word or��sound alike� substitutions may have occurred due to the inherent limitations of voice recognition software.
<Thomas Chacko MD - Last Filed: 01/23/24 16:13>
ED Attending Note
Patient seen and examined by attending physician: Yes
ED Attending Note:
Patient status post left endarterectomy procedure with Dr. Prince at [facility] 1 week ago, presents to ED secondary to left-sided headache, facial pain, along with increased surgical site swelling over the past 2 days. Patient reports
multiple vomiting episodes. Denies blurred vision. Denies dizziness. Denies loss of sensation or weakness. Denies difficulty with speech. Denies difficulty with ambulation. Patient takes 81 mg aspirin daily.
Physical Exam
General: mild painful distress, not acutely ill. afebrile.
Head: nc/at. eomi
Neck: supple. no meningeal signs. normal posterior pharynx. left side neck pains/swelling noted without open drainage.
Heart: s1/s2 regular rate and rhythm, no murmur. equal radial pulses.
Lungs: no acute respiratory distress. clear bilaterally
Abdomen: normal bowel sounds. not tender. no CVAT
Neuro: alert and oriented. no focal neurological deficits
Skin: no rash
Psychiatric: well kept. interactive and cooperative
Extremities: no edema. no calf tenderness.
Pt evaluated in ED by (vascular surgery) - will proceed with CT head/CTA head/neck study
CTA report reviewed by . Will admit patient for further evaluation and treatment.
Discharge Plan
Departure
Patient Disposition: Admit
Date of Disposition: 01/23/24
Time of Disposition: 14:18
Presentation/result/management discussed w/ accepting MD/DO: vascular
Patient with high blood pressure during this ER visit?: Yes
Condition: Fair
Discharge Problem:
Hypertension, Status post carotid endarterectomy
Interventions
Interventions:
*Risk Screen - Suicide Last Done: 01/23/24 10:46
*General Assessment Last Done: 01/23/24 10:47
*Neglect/Abuse Screening Last Done: 01/23/24 10:46
*ED COVID-19 Vaccine History Last Done: 01/23/24 10:47
*Nursing Disposition Last Done: 01/23/24 15:05
ED- Cardiac Assessment Last Done: 01/23/24 13:00
ED- Pulmonary Assessment Last Done: 01/23/24 13:00
ED-Skin Assessment Last Done: 01/23/24 13:00
Discharge Date and Time
Discharge Date/Time: 01/23/24 15:06
--- NOTE | 2024-01-23 11:00 | W.PN.UPDATE ---
Update Note
Progress Note Update
Patient status post left carotid endarterectomy on 01/16/[address] Kenny Prince, patient seen in office today please see note below. Patient reporting increased swelling at left neck, with accompanying dysphagia, left-sided headache, and
nausea/vomiting (now resolved); she was instructed to report to the ED for further imaging.
Plan:
Urgent CTA head and neck to rule out active extravasation from recent surgical site
[2024-01-23] MEDS: ZOFRAN 4 MG IV (11:06)
[2024-01-23] MEDS: DILAUDID 0.5 MG IV (11:06)
[2024-01-23 11:11] LABS: % Basophils 0.8 % (0-2); % Eosinophils 5.2 % (0-6); % Immature Granulocytes 0.2 % (0-0.5); % Lymphocytes 10.5 % (20.5-51.1); % Monocytes 8.2 % (1.7-9.3); % Neutrophils 75.1 % (42.2-75.2); Absolute Eosinophils 0.3 10^3/uL (0-0.7); Absolute Lymphocytes 0.6 10^3/uL (1.2-3.4); Absolute Monocytes 0.4 10^3/uL (0.1-0.6); Absolute Neutrophils 3.9 10^3/uL (1.4-6.5); Hematocrit 29.1 % (37.0-47.0); Mean Corp Hgb Conc. 30.9 g/dL (33.0-37.0); Mean Corpuscular Hgb 28.8 pg (27.0-31.0); Mean Corpuscular Volume 93.3 fL (81.0-99.0); Mean Platelet Volume 8.8 fL (7.4-10.4); Nucleated Red Blood Cells % 0 %; Platelet Count 186 10^3/uL (130-400); Red Blood Cell Count 3.12 10^6/uL (4.20-5.40); Red Cell Dist. Width 16.3 % (11.5-14.5); White Blood Cell Count 5.2 10^3/uL (4.8-10.8)
[2024-01-23 11:23] LABS: Blood Urea Nitrogen 10 mg/dl (7-17); Calcium 8.7 mg/dl (8.4-10.2); Carbon Dioxide 24 mmol/L (22-30); Chloride 108 mmol/L (98-107); Estimated Creatinine Clearance 99 ml/min; Glucose 101 mg/dl (70-99); Potassium 4.2 mmol/L (3.5-5.1); Sodium 136 mmol/L (135-145); eGFR > 60.00
[2024-01-23 11:25] LABS: APTT 35.6 Sec (23.4-35.0); INR 1.19; PT 14.9 Sec (11.4-14.6)
--- NOTE | 2024-01-23 14:58 | W.PN.UPDATE ---
Update Note
Progress Note Update
This patient was seen and examined with FITO Millan in the emergency room. Patient's daughter at bedside. I agree with the history and physical exam as well as the assessment and plan. I have the following additions:
1 week postop from left carotid endarterectomy
Uneventful postop course
Developed nausea and vomiting this weekend
Increased swelling in the neck
Has had persistent sore throat with some dysphagia since the surgery
Has been able to keep down both solids and liquids despite dysphagia
Left-sided headache today
On exam she is nontoxic-appearing
Grossly nonfocal neuro exam
Her neck is large with soft tissue. Some swelling to the left neck
Trachea is midline
Incision is clean and dry
There is no erythema
No drainage from the incision
I personally reviewed the CTA images. The carotid endarterectomy with patch angioplasty is widely patent. No stenosis or filling defects are identified. No extravasation. Scattered foci of air surrounding the carotid repair is likely related to
topical hemostatic agent applied at the time of surgery. No significant hematoma is identified.
Admit for BP management. Swallow eval. Pain control as needed.
Signed:
Kenny Prince III, MD
[facility] Vascular Surgery
[phone] (lpgv)
[2024-01-23] MEDS: NEURONTIN 600 MG PO ×2 (16:08→20:15)
[2024-01-23] MEDS: Pyridium 100 MG PO (16:08)
[2024-01-23] MEDS: ROXICODONE 5 MG PO ×2 (16:08→16:59)
[2024-01-23] MEDS: GLUCOPHAGE 500 MG PO (16:08)
[2024-01-23] MEDS: TYLENOL 650 MG PO ×2 (16:09→20:15)
--- NOTE | 2024-01-23 16:13 | PTCARENOTE ---
Received pt from ED into rm [id number] on stretcher w/ RN present. AAOx3, ambulated to bed w/ min assist. NSR on the monitor. BP elevated. pt complaining of urinary urgency. Spoke w/. pyridium ordered and given. See MAR. Pt complaining of pain in neck.
Full assessment is as completed in chart.
[2024-01-23 16:16] LABS: Glucose - Point of Care 95 mg/dl (70-99)
[2024-01-23] MEDS: LIPITOR 20 MG PO (17:54)
[2024-01-23] MEDS: TENORMIN 25 MG PO (17:54)
[2024-01-23] MEDS: ROXICODONE 10 MG PO (20:15)
[2024-01-23] MEDS: HEPARIN 5000 UNITS SC (20:15)
[2024-01-23] MEDS: CELEXA 40 MG PO (20:15)
[2024-01-23 20:17] LABS: Urine Albumin Negative (Neg - Trace); Urine Bilirubin 2+ (Negative); Urine Character Clear (Clear); Urine Color Amber; Urine Glucose Negative (Negative); Urine Ketone Negative (Negative); Urine Leukocyte 2+ (Negative); Urine Nitrite Positive (Negative); Urine Occult Blood Negative (Negative); Urine Urobilinogen 3+ (Neg - 1+)
[2024-01-23 20:40] LABS: Urine Bacteria Many (Negative); Urine Red Blood Cell 0-2 /HPF (0-2)
--- NOTE | 2024-01-23 21:25 | PTCARENOTE ---
Addendum entered by Inna Lan RN 01/23/24 21:47:
physically impaired teacher provider started patient on IV abx.
Original Note:
UA sent down to lab. scallop raker provider made aware of results.
--- NOTE | 2024-01-23 21:46 | W.PN.UPDATE ---
Update Note
Progress Note Update
UA +
will start ceftriaxone (has tolerated in past)
[2024-01-23 22:08] LABS: Glucose - Point of Care 104 mg/dl (70-99)
[2024-01-23] MEDS: ROCEPHIN 1000 MG IV (22:09)
[2024-01-23] MEDS: STERILE WATER FOR INJECTION 10 ML IV (22:09)
[2024-01-23] MEDS: TYLENOL PO (23:37)
[2024-01-24] VITALS (10 sets, daily range): BP systolic 123–153; BP diastolic 55–98; BMI 30.9
[2024-01-24 03:56] LABS: Hematocrit 27.9 % (37.0-47.0); Hemoglobin 8.5 g/dL (12.0-16.0); Mean Corp Hgb Conc. 30.5 g/dL (33.0-37.0); Mean Corpuscular Hgb 28.3 pg (27.0-31.0); Platelet Count 197 10^3/uL (130-400); Red Cell Dist. Width 16.3 % (11.5-14.5); White Blood Cell Count 5.1 10^3/uL (4.8-10.8)
[2024-01-24] MEDS: TYLENOL PO (03:58)
[2024-01-24 04:08] LABS: Blood Urea Nitrogen 8 mg/dl (7-17); Calcium 8.8 mg/dl (8.4-10.2); Carbon Dioxide 25 mmol/L (22-30); Chloride 107 mmol/L (98-107); Estimated Creatinine Clearance 96 ml/min; Glucose 93 mg/dl (70-99); Potassium 4.2 mmol/L (3.5-5.1); Sodium 136 mmol/L (135-145); eGFR > 60.00
[2024-01-24] MEDS: ROXICODONE 10 MG PO ×2 (06:00→12:29)
--- NOTE | 2024-01-24 08:09 | W.PN.VS ---
Addendum entered and electronically signed by Jordi Garrido MD 01/24/24 08:16:
Seen and examined with HOEING ROW BOSS. Agree with findings as noted below. Patient notes that her headache is still present but better. Left neck incision clean dry and intact. Hematoma stable/soft/small. Neurologically no focal deficits. Plan/as
discussed and noted below. Speech and swallow eval. Blood pressure control.
Original Note:
Today's Communication / Plan
-
Seen and assessed with Dr. Garrido
Assessment/Plan
-
Plan:
-Speech and swallow eval, swallow study
-BP control
-Antibiotics
Subjective Data
-
Date of Service: January 24, 2024
Patient seen at bedside this a.m. with Dr. Garrido. Patient offers no complaints this a.m. Patient states headache is decreasing. No events overnight.
Objective Data
-
Vital Signs
Temp Pulse Resp BP Pulse Ox
97 F 63 15 151/73 96
01/24/24 02:47 01/24/24 06:00 01/24/24 06:00 01/24/24 06:00 01/23/24 21:51
Intake and Output
01/23/24 01/24/24 01/25/24
06:59 06:59 06:59
Output Total 500 / 500
Balance -500 / -500
Output:
Urine, Voided 500 / 500
Other:
Number of approximated MODERATE 4
amounts of urine
Lab Results
01/24/24 03:34
01/24/24 03:34
Calcium 8.8 mg/dl (8.4-10.2) 01/24/24 03:34
Physical Exam
-
AAOx3
Face symmetrical, left neck site CDI, soft
No tachycardia
No dyspnea on room air
[2024-01-24 08:12] LABS: Glucose - Point of Care 99 mg/dl (70-99)
[2024-01-24] MEDS: TYLENOL 650 MG PO ×3 (08:24→16:23)
[2024-01-24] MEDS: NEURONTIN 600 MG PO ×2 (08:24→16:23)
[2024-01-24] MEDS: ASPIR LOW (ENTERIC COATED) 81 MG PO (08:24)
[2024-01-24] MEDS: GLUCOPHAGE 500 MG PO ×2 (08:24→16:23)
[2024-01-24] MEDS: PROTONIX 40 MG PO (08:24)
[2024-01-24] MEDS: LASIX 40 MG PO (08:24)
[2024-01-24] MEDS: FEOSOL 325 MG PO (08:24)
[2024-01-24] MEDS: HEPARIN 5000 UNITS SC (08:25)
--- NOTE | 2024-01-24 10:33 | PTOTSP ---
Dysphagia Evaluation
Patient presents with signs concerning for an unspecified pharyngeal dysphagia which is likely acute on chronic s/p L CEA 1 week ago and in setting of prior cervical spinal fusions 4 years ago. Patient c/o mild stasis with dry/dense solids on left
greater than right relieved with liquid wash and/or multiple swallows. No overt s/s of aspiration observed.
Discussed video swallow study to objectively assess swallowing and further develop treatment plan given history above. Patient politely declined further testing after rationale/education.
Recommend:
1. Regular, Thin Liquids
2. Strategies: pick soft/moist foods, alternate solids and liquids, use multiple swallows, remain upright for at least 30 minutes after PO intake
3. Medications as best tolerated
4. Oral care at least 2x day
Will sign off at this time. Please reconsult as appropriate.
[2024-01-24 12:10] LABS: Glucose - Point of Care 121 mg/dl (70-99)
--- NOTE | 2024-01-24 13:27 | PTCARENOTE ---
Received Pt from previous shift. Pt AAO and agreeable to care. Pt assisted with oral care this AM. Pt took morning pills with water without complications. Pt remains on 2L NC, satting 95%. Pt frequently urinating, 1-2x per hour. Urine remains
yellowish orange. Pt does not complain of pain while urinating, just urgency. Pts remains without need for insulin, Am glucose 99, lunchtime 121. Pt consumed 100% breakfast and lunch.
Pt still having swelling in her right facial region and neck. Pt c/o severe pain associated. pt requests ordered Marie. Pt given ordered Marie, Pt assessed resting in bed, RR even and unlabored. Call abernathy in reach.
[2024-01-24 16:27] LABS: Glucose - Point of Care 105 mg/dl (70-99)
--- NOTE | 2024-01-24 16:42 | W.DS.TRANS ---
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
-
Discharge Instructions:
Discharge Diagnosis/Procedures Neck hematoma s/p CEA
Diet Other diet
Additional Diets Recommend:
1. Regular, Thin Liquids
2. Strategies: pick soft/moist foods, alternate
solids and liquids, use multiple swallows,
remain upright for at least 30 minutes after PO
intake
3. Medications as best tolerated
4. Oral care at least 2x day
Activity No strenuous activity
Driving Restrictions Not until seen by your Dr
Bathing Restrictions OK to Shower
Instructions:
Stand-Alone Forms:
Changes to Home Medications: Yes
Discharge Medications:
DC Medications w/original date entered in [facility]
gabapentin 600 mg tablet 600 mg PO TID Neuropathic pain 10/03/23
acetaminophen 650 mg tablet,extended release 1,300 mg PO BIDPRN PRN mild pain 10/08/23
aspirin 81 mg tablet,delayed release 81 mg PO DAILY Blood Clot Prevention/Tx 10/08/23
citalopram 40 mg tablet 40 mg PO HS Depression/Anxiety #10 tabs 10/21/23
ferrous sulfate 325 mg (65 mg iron) tablet (FeroSul) 325 mg PO DAILY anemia #30 tabs 10/21/23
pantoprazole 40 mg tablet,delayed release 40 mg PO DAILY #30 tabs 10/21/23
oxycodone-acetaminophen 10 mg-325 mg tablet 1 tab PO 5/D Pain 01/10/24
atorvastatin 20 mg tablet (Lipitor) 20 mg PO QPM 01/23/24
diazepam 5 mg tablet 5 mg PO HSPRN PRN SLEEP 01/23/24
furosemide 40 mg tablet (Lasix) 40 mg PO DAILY 01/23/24
metformin 500 mg tablet 500 mg PO BID@0800,1700 Diabetes 01/23/24
atenolol 25 mg tablet 25 mg PO QPM #30 tabs 01/24/24
sulfamethoxazole 800 mg-trimethoprim 160 mg tablet 1 tab PO BID #28 tabs 01/24/24
Home Medication Changes
Added Atenolol for BP
Added Bactrim for UTI
Pending Results: No
== END 2024-01-24 17:20 | disposition home or self-care (01) | DRG 921 ==
LOC: IMU 13:50
PROVIDERS: Nurse Practitioner; Physician Assistant Medical; ADMITTING PHYSICIAN Surgery Vascular Surgery; EMERGENCY PHYSICIAN Emergency Medicine; FAMILY PHYSICIAN Family Medicine
DX: M96.841 Postprocedural hematoma of a musculoskeletal structure following other procedure (principal); Z87.891 Personal history of nicotine dependence; I10 Essential (primary) hypertension; Z79.82 Long term (current) use of aspirin; Y83.8 Other surgical procedures as the cause of abnormal reaction of the patient, or of later complication, without mention of misadventure at the time of the procedure
CPT/HCPCS: 70496; 70498; 71045; 80048; 81003; 81015; 82962; 85025; 85027; 85610; 85730; 86850; 86900; 86901; 87077; 87086; 87186; 92610; 93005; 96374; 96375; 99285; Q9967

== ENCOUNTER 2024-01-30 19:31 | Inpatient (IN) | payer MEDICARE, SELFPAY ==
[2024-01-30 16:01] VITALS: BP 124/53
--- NOTE | 2024-01-30 17:11 | ED.GENMED ---
History of Present Illness
General
Chief Complaint: Fall
Source: patient
Exam Limitations: none
Time Seen by Provider: 01/30/24 17:09
Nursing documentation reviewed up to this point in time: agreed with
Travel History
Have you had any contact with someone who has COVID-19?: No
Do you have any symptoms of coronavirus? Fever > 100 degrees, chills, cough, shortness of breath, sore throat, loss of taste or smell, muscle aches, or headache?: No
History of Present Illness
History of Present Illness:
63-year-old female with history of chronic back pain with opioid dependence, neck fusion, pleural effusion, CAD, HTN, HLD, GERD, NIDDM, COPD anxiety/depression, cardiac stent 10/18/2023 with AVR, arteriosclerosis of both carotid arteries presents with
3 falls in past 3 days, due to losing balance, other than pain outer aspect left foot, no significant injury, states 'I know how to lower myself to the floor.' No LOC, no dizziness, lightheadedness, simply lost balance she states. Denies hitting her
head.
Denies CP, SOB, abdominal pain, denies n/v. Denies fever/chills.
Past History
Past History
ED Past Medical History: CAD, GERD, HTN, Hypercholesterolemia, NIDDM and Valvular disease (Aortic stenosis)
Social History
Tobacco: Former smoker
Alcohol: None
Personal:
Living: with family
Family History
Family History: CAD
Review of Systems
Review of Systems
Allergies reviewed?: Yes
All Other Systems: ROS reviewed and negative except as documented in HPI and ROS
Constitutional: Reports fatigue; Denies fever or chills
Respiratory: Denies cough or trouble breathing
Cardiac: Denies chest pain or syncope
ABD/GI: Denies abdominal pain, nausea or vomiting
: Denies dysuria, frequency, difficulty voiding or urgency
Musculoskeletal: Reports other (pain outer aspect left carmen after fall); Denies edema, neck pain or back pain
Skin: Reports no symptoms
Neurological: Reports other (falls from losing balance); Denies dizzy, headache, weakness or numbness
Phy Exam
Physical Exam
Physical Exam:
GENERAL: No acute distress. A&Ox3.
CONSTITUTIONAL: Afebrile.
EYES: PERRL, conjunctivae normal
Neck: Supple
ENMT: moist mucus membranes, Pharynx nl
RESPIRATORY: Regular respirations, nonlabored, lungs clear.
CARDIOVASCULAR: Regular rate and rhythm, no murmurs, no rubs.
GI: Soft, obese, nontender, normal BS
MUSCULOSKELETAL: Moves with ease. Well perfused. No edema. Mild swelling, tenderness lateral left foot, mild ecchymosis
SKIN: Warm, dry, pale
PSYCH: Normal mood and affect. Well kept, interactive and appropriate
NEUROLOGIC: Awake, alert and oriented. No focal neurological deficits
Course
Orders/Labs/Results
Orders:
Orders
01/30/24 16:03
EKG [Electrocardiogram (*1)] Urgent
Reason for Study: Vertigo / Dizzy
EKG- Treatment ONCE
01/30/24 17:27
Basic Metabolic Panel Urgent
CBC/With Diff [Complete Blood Count/With Diff] Urgent
CPK [Creatine Phosphokinase] Urgent
01/30/24 17:40
CR Foot - Left Min 3 Views Urgent
Comment:
Reason For Exam: pain laterally after fall
01/30/24 18:16
Add On- LAB Urgent
Tests Added?: serum osmolality
01/30/24 18:17
0.9% Sodium Chloride 1000 ml [Nss] 1,000 ml IV BOLUS
01/30/24 19:01
Serum Osmolality Urgent
Comment: CANNOT ADD. SPECIMEN IN LAB HEMOLYZED.
Urinalysis Reflex To Culture Urgent
Date Specimen was Collected: 01/30/24
Time Specimen was Collected: 18:12
Urine Microscopic Reflex Cult Urgent
Urine Culture Urgent
PRESLEY Source: U
Specimen Description:
Date Specimen was Collected: 01/30/24
Time Specimen was Collected: 18:12
01/30/24 19:05
Osmolality, Random Urine Urgent
Date Specimen was Collected: 01/30/24
Time Specimen was Collected: 19:04
Urine Sodium Urgent
Date Specimen was Collected: 01/30/24
Time Specimen was Collected: 19:04
01/30/24 19:06
Admit/Transfer Patient As Directed
Co-Sign Provider:
Level of Care: Inpatient admission
Assign to:: Telemetry
Physician / Group: bruce
Diagnosis: orthostatic hypotension, alex
Reason for Telemetry: Arrhythmia
Date to Stop Telemetry: 02/02/24
Time to Stop Telemetry: 11:00
Reason for Hospitalization: orthostatic hypotension, alex
Expected length of stay greater than two midnights?: Yes
ELOS- Estimated Length of Stay in days: 2
I certify the patient meets the requirements for IP care: Yes
01/30/24 19:07
Code Status As Directed
Resuscitation Status: Do not resuscitate
Reached after discussion with pt or family/Healthcare POA: Yes
DNR Bracelet Application ONCE
02/02/24 11:00
DC Protocol for Telemetry ONCE
Abnormal Lab Results
01/30/24 01/30/24
17:27 19:01
RBC 2.67 L 10^6/uL
(4.20-5.40)
Hgb 7.6 L g/dL
(12.0-16.0)
Hct 24.1 L %
(37.0-47.0)
MCHC 31.5 L g/dL
(33.0-37.0)
RDW 16.4 H %
(11.5-14.5)
Absolute Lymphs (auto) 0.8 L 10^3/uL
(1.2-3.4)
Absolute Monos (auto) 0.7 H 10^3/uL
(0.1-0.6)
Neutrophils % 77.7 H %
(42.2-75.2)
Lymphocytes % 10.5 L %
(20.5-51.1)
Sodium 129 L mmol/L
(135-145)
Carbon Dioxide 19 L mmol/L
(22-30)
BUN 53 H mg/dl
(7-17)
Creatinine 1.9 H mg/dL
(0.6-1.0)
Calcium 7.8 L mg/dl
(8.4-10.2)
Creatine Kinase 201 H U/L
(30-135)
Urine Bilirubin 2+ A
(Negative)
Leukocyte Esterase Rfl 2+ A
(Negative)
01/30/24 17:27
01/30/24 17:27
Vital Signs
Initial and Last Documented VS:
Initial Vital Signs
Pulse Resp Pulse Ox
72 18 91
01/30/24 15:54 01/30/24 15:54 01/30/24 15:54
Last Documented Vital Signs
Pulse Resp BP Pulse Ox
77 14 118/53 96
01/30/24 20:45 01/30/24 20:45 01/30/24 20:00 01/30/24 20:45
MDM/Problems Addressed
Differential Diagnosis Includes:
UTI, dehydration, deconditioning
left foot fracture/sprain
MDM/Problems Addressed:
63-year-old female with history of chronic back pain with opioid dependence, neck fusion, pleural effusion, CAD, HTN, HLD, GERD, NIDDM, COPD anxiety/depression, cardiac stent 10/18/2023 with AVR, arteriosclerosis of both carotid arteries presents with
3 falls in past 3 days, due to losing balance, other than pain outer aspect left foot, no significant injury, states 'I know how to lower myself to the floor.' No LOC, no dizziness, lightheadedness, simply lost balance she states. Denies hitting her
head.
Denies CP, SOB, abdominal pain, denies n/v. Denies fever/chills.
6:00 PM
CBC: Hemoglobin 7.6 down from 8.5 on 01/23 (stool heme-negative)
CMP: Sodium 129, BUN/creat 53/1.9
CK mildly elevated at 201 (2 nights ago when she fell she laid on the floor for 2 hours before her daughter could come and help her up)
Plan: Admit: ALEX, dehydration, hyponatremia, falls, anemia
Foot xray: No fracture
Hospitalist notified of admission.
*Critical Care Note
Total Time (30-74mins, 75-104mins- exclusive of procedures): Not Applicable
ED Attending Note
-
Portions of this chart may have been created with voice recognition software.� Occasional wrong word or��sound alike� substitutions may have occurred due to the inherent limitations of voice recognition software.
Discharge Plan
Departure
Patient Disposition: Admit
Date of Disposition: 01/30/24
Time of Disposition: 18:28
Presentation/result/management discussed w/ accepting MD/DO: Hospitalist
Condition: Fair
Discharge Problem:
Frequent falls, Acute hyponatremia, ALEX (acute kidney injury), Acute dehydration, Anemia
Interventions
Interventions:
*Risk Screen - Suicide Last Done: 01/30/24 15:54
*General Assessment Last Done: 01/30/24 15:54
*Neglect/Abuse Screening Last Done: 01/30/24 15:54
ED- Fall Risk Assessment Last Done: 01/30/24 16:29
*ED COVID-19 Vaccine History Last Done: 01/30/24 15:54
ED-Musculoskeletal Assessment Last Done: 01/30/24 16:29
ED- Neurological Assessment Last Done: 01/30/24 16:29
ED-Skin Assessment Last Done: 01/30/24 16:29
[2024-01-30 17:37] LABS: % Basophils 0.4 % (0-2); % Eosinophils 2.4 % (0-6); % Immature Granulocytes 0.5 % (0-0.5); % Lymphocytes 10.5 % (20.5-51.1); % Monocytes 8.5 % (1.7-9.3); % Neutrophils 77.7 % (42.2-75.2); Absolute Eosinophils 0.2 10^3/uL (0-0.7); Absolute Lymphocytes 0.8 10^3/uL (1.2-3.4); Absolute Monocytes 0.7 10^3/uL (0.1-0.6); Absolute Neutrophils 6.1 10^3/uL (1.4-6.5); Hematocrit 24.1 % (37.0-47.0); Hemoglobin 7.6 g/dL (12.0-16.0); Mean Corp Hgb Conc. 31.5 g/dL (33.0-37.0); Mean Corpuscular Hgb 28.5 pg (27.0-31.0); Mean Corpuscular Volume 90.3 fL (81.0-99.0); Nucleated Red Blood Cells % 0 %; Red Blood Cell Count 2.67 10^6/uL (4.20-5.40); Red Cell Dist. Width 16.4 % (11.5-14.5); White Blood Cell Count 7.8 10^3/uL (4.8-10.8)
[2024-01-30 17:51] LABS: Blood Urea Nitrogen 53 mg/dl (7-17); Calcium 7.8 mg/dl (8.4-10.2); Carbon Dioxide 19 mmol/L (22-30); Chloride 101 mmol/L (98-107); Creatine Phosphokinase 201 U/L (30-135); Glucose 91 mg/dl (70-99); Sodium 129 mmol/L (135-145); eGFR 28.94
[2024-01-30 18:03] LABS: Mean Platelet Volume 9.4 fL (7.4-10.4)
[2024-01-30 18:04] LABS: Platelet Count 213 10^3/uL (130-400)
[2024-01-30] MEDS: NSS 1000 IV ×2 (19:03→23:33)
[2024-01-30 19:05] VITALS: BP 105/47
[2024-01-30 19:14] LABS: Urine Albumin Negative (Neg - Trace); Urine Bilirubin 2+ (Negative); Urine Character Clear (Clear); Urine Color Yellow; Urine Glucose Negative (Negative); Urine Ketone Negative (Negative); Urine Leukocyte 2+ (Negative); Urine Nitrite Negative (Negative); Urine Occult Blood Negative (Negative); Urine Urobilinogen Negative (Neg - 1+)
--- NOTE | 2024-01-30 19:17 | HPS.HSE ---
Family Physician
-
Family Physician: Fransisco Reese
Chief Complaint
-
dizziness
History of Present Illness
63-year-old female past medical history of chronic back pain with opiate dependence, neck fusion, CAD status post stent, aortic stenosis status post valve replacement, carotid stenosis status post left carotid endarterectomy on 01/16/2024, prior
right-sided carotid surgery 5 years ago, hypertension, hyperlipidemia, GERD, diabetes, COPD, anxiety/depression, kidney stones presenting with dizziness and fatigue over the past week. Dizziness occurs when she stands up and walks. She has fallen
multiple times today. Denies passing out. Denies any head injury although she did hurt the lateral part of her left foot and has not pain with weightbearing. Denies any vertigo or headache. She has been eating and drinking less recently. Has
been having some nausea but no vomiting. Denies any focal weakness, numbness or tingling or swallowing difficulty.
Patient recently had left carotid endarterectomy on 01/15. She was admitted afterwards for left neck swelling and found a small amount of edema and was discharged. Swelling is improved since then. She denies any neck pain currently.
Patient was also started on Bactrim for urinary burning secondary to UTI while she was hospitalized. She continues to have some urinary burning.
Medical History
Past Medical History
Past Medical History: Reports Other (chronic back pain with opiate dependence, neck fusion, CAD status post stent, aortic stenosis status post valve replacement, carotid stenosis status post left carotid endarterectomy on 01/16/2024, prior right-sided
carotid surgery 5 years ago, hypertension, hyperlipidemia, GERD, diabetes, COPD, anxiet)
Past Surgical History: Reports None
Social History
Tobacco: Non-smoker
Alcohol: None
Drug: None
Family History
Family History: Not pertinent
Allergies / Home Medications
Allergies reflects when Allergies were last updated in [facility].
Home Medications with original date entered in [facility]
Allergy/Medication List:
Allergies
Allergy/AdvReac Type Severity Reaction Status Date / Time
clams Allergy Vomiting Verified 01/23/24 10:18
Penicillins Allergy Hives Verified 01/23/24 10:18
pepper (genus Capsicum) Allergy Vomiting Verified 01/23/24 10:18
Home Medications
gabapentin 600 mg tablet 600 mg PO TID Neuropathic pain 10/03/23
acetaminophen 650 mg tablet,extended release 1,300 mg PO BIDPRN PRN mild pain 10/08/23
aspirin 81 mg tablet,delayed release 81 mg PO DAILY Blood Clot Prevention/Tx 10/08/23
citalopram 40 mg tablet 40 mg PO HS Depression/Anxiety #10 tabs 10/21/23
ferrous sulfate 325 mg (65 mg iron) tablet (FeroSul) 325 mg PO DAILY anemia #30 tabs 10/21/23
pantoprazole 40 mg tablet,delayed release 40 mg PO DAILY #30 tabs 10/21/23
oxycodone-acetaminophen 10 mg-325 mg tablet 1 tab PO Q4HPRN PRN SEVERE PAIN 01/10/24
atorvastatin 20 mg tablet (Lipitor) 20 mg PO QPM 01/23/24
diazepam 5 mg tablet 5 mg PO HSPRN PRN SLEEP 01/23/24
furosemide 40 mg tablet (Lasix) 40 mg PO DAILY 01/23/24
metformin 500 mg tablet 500 mg PO BID@0800,1700 Diabetes 01/23/24
atenolol 25 mg tablet 25 mg PO QPM #30 tabs 01/24/24
sulfamethoxazole 800 mg-trimethoprim 160 mg tablet 1 tab PO BID #28 tabs 01/24/24
Review of Systems
-
History Source: Patient
A 12 point ROS was completed and negative except as noted: Yes
Constitutional: Reports No Symptoms
EENT: Reports No Symptoms
Respiratory: Reports No Symptoms
Cardiac: Reports No Symptoms
Abdomen/GI: Reports No Symptoms
: Reports No Symptoms
Musculoskeletal: Reports No Symptoms
Skin: Reports No Symptoms
Neurological: Reports No Symptoms
Endocrine: Reports No Symptoms
Hematologic/Lymphatic: Reports No Symptoms
Psych: Reports No Symptoms
Physical Exam
Vital Signs
Vital Signs
Pulse Resp BP Pulse Ox
72 18 124/53 91
01/30/24 15:54 01/30/24 15:54 01/30/24 16:01 01/30/24 15:54
Physical Exam
General: Well Developed, Well Nourished and No Apparent Distress
HEENT: NormoCephalic, Moist mucous membranes and Atraumatic
Respiratory: Clear
Cardiac: S1/S2 and Regular Rhythm; No Murmur or Rub
GI: Soft, Non Tender, Non Distended and Normal Bowel Sounds; No Organomegaly
Rectal: Deferred by Provider
Musculoskeletal: No Clubbing, No Cyanosis and No Edema
Skin: No Rash
Neuro: Nonfocal/grossly intact
Laboratory Results
-
01/30/24 17:27
01/30/24 17:27
Laboratory Results
Total Bilirubin Cancelled 01/30/24 17:27
AST Cancelled 01/30/24 17:27
ALT Cancelled 01/30/24 17:27
Alkaline Phosphatase Cancelled 01/30/24 17:27
Data Reviewed
-
Lab Data: Labs Reviewed by me
Old Records: Reviewed
Impression/Plan
-
IMPRESSION:
PLAN:
# Dizziness concerning for orthostatic hypotension, possibly anemia contributing
-No neurological deficits to suggest CVA
-Check orthostatic vital signs
-IV fluids
-Hold off blood transfusion for now but will require if hemoglobin drops below 7
# Chronic normocytic anemia
-Check fecal occult, iron studies, B12, folate
-Continue iron supplement
# Lateral left foot injury
-X-ray pending
# Acute kidney injury likely prerenal/secondary to Bactrim
-Hold Bactrim
-IV fluids
-Hold Lasix as patient is not taking
#Hyponatremia likely due to poor p.o. intake
-Urine sodium studies pending
-Monitor with IV fluids
# Urinary tract infection secondary to Klebsiella
-Urine culture from 01/22
-Discontinue Bactrim and switch to Keflex
Recent left carotid endarterectomy on 01/15 with residual improving neck swelling from post op edema
Prior right-sided carotid endarterectomy 5 years ago
-Continue aspirin, statin
CAD status post stent
Aortic stenosis status post AVR
Essential hypertension
-Continue Tylenol
Hyperlipidemia
-Continue statin
GERD
-Continue Protonix
Type 2 diabetes
-Hold metformin
COPD
Anxiety/depression
-Continue citalopram, diazepam
History of kidney stones
Chronic back pain/spinal stenosis
-Continue Percocet, gabapentin, Tylenol
DNR/DNI
DVT prophylaxis�heparin
Regular diet
[2024-01-30 19:22] LABS: Osmolality Urine 368 mOsm/kg (300-900)
[2024-01-30 19:25] LABS: Osmolality Serum 286 mOsm/kg (275-300); Urine Red Blood Cell None Seen /HPF (0-2); Urine Squamous Cell 21-25 /LPF (Few)
[2024-01-30 19:28] LABS: Urine Sodium 51 mmol/L (30-90)
[2024-01-30 20:00] VITALS: BP 118/53
[2024-01-30 21:00] VITALS: BP 115/69
[2024-01-30 22:01] VITALS: BP 125/59
[2024-01-30] MEDS: ROXICODONE 10 MG PO (22:27)
[2024-01-30] MEDS: TYLENOL 325 MG PO (22:27)
[2024-01-30 23:06] VITALS: BMI 33.2
[2024-01-30 23:17] LABS: Glucose - Point of Care 107 mg/dl (70-99)
[2024-01-30] MEDS: NEURONTIN 600 MG PO (23:32)
[2024-01-30] MEDS: KEFLEX 500 MG PO (23:32)
[2024-01-30] MEDS: HEPARIN 5000 UNITS SC (23:33)
[2024-01-30] MEDS: CELEXA 40 MG PO (23:33)
[2024-01-30 23:34] VITALS: BP 140/65; BP 140/76; BP 156/69; PULSE 85; PULSE 89
[2024-01-31] VITALS (11 sets, daily range): BP systolic 89–134; BP diastolic 50–66; BMI 32.9
--- NOTE | 2024-01-31 00:01 | PTCARENOTE ---
Patient aaox3. Pleasant and cooperative with care. Pain to left foot decreased since pain medication given in ED. Assist x 1 with RW. Unsteady on feet. Uses call abernathy for assist. Call abernathy with in reach. Oriented to room.
[2024-01-31 00:09] LABS: Iron 46 ug/dl (37-170)
[2024-01-31 00:12] LABS: Percent Saturation 16 % (20-50); Total Iron Binding Capacity 285 ug/dl (265-497)
[2024-01-31] MEDS: ROXICODONE 10 MG PO ×3 (04:05→17:47)
[2024-01-31] MEDS: TYLENOL 325 MG PO ×3 (04:05→17:47)
[2024-01-31 04:24] LABS: Folate 7.6 ng/ml (2.76-20); Vitamin B12 333 pg/ml (239-931)
--- NOTE | 2024-01-31 04:45 | DOWNTIME ---
There was a [employer] Downtime on 01/31/2024 from 0100 to 01/31/2024 at 0439. Downtime documentation of patient's care, including medication administrations, has been reconciled in the electronic record per guidelines. Refer to the
patient's paper chart under the miscellaneous tab to see printed paper medication records and downtime forms.
[2024-01-31 08:00] LABS: % Basophils 0.4 % (0-2); % Eosinophils 3.4 % (0-6); % Immature Granulocytes 0.4 % (0-0.5); % Lymphocytes 11.1 % (20.5-51.1); % Monocytes 8.8 % (1.7-9.3); % Neutrophils 75.9 % (42.2-75.2); Absolute Eosinophils 0.2 10^3/uL (0-0.7); Absolute Lymphocytes 0.6 10^3/uL (1.2-3.4); Absolute Monocytes 0.5 10^3/uL (0.1-0.6); Hematocrit 22.9 % (37.0-47.0); Hemoglobin 7.3 g/dL (12.0-16.0); Mean Corp Hgb Conc. 31.9 g/dL (33.0-37.0); Mean Corpuscular Volume 90.9 fL (81.0-99.0); Nucleated Red Blood Cells % 0 %; Platelet Count 195 10^3/uL (130-400); Red Blood Cell Count 2.52 10^6/uL (4.20-5.40); White Blood Cell Count 5.2 10^3/uL (4.8-10.8)
[2024-01-31] MEDS: ASPIR LOW (ENTERIC COATED) 81 MG PO (08:25)
[2024-01-31] MEDS: FEOSOL 325 MG PO (08:26)
[2024-01-31] MEDS: HEPARIN 5000 UNITS SC ×2 (08:26→19:44)
[2024-01-31] MEDS: KEFLEX 500 MG PO ×4 (08:30→19:46)
[2024-01-31] MEDS: NEURONTIN 600 MG PO ×3 (08:31→19:45)
[2024-01-31] MEDS: PROTONIX 40 MG PO (08:31)
--- NOTE | 2024-01-31 08:39 | W.PN.HOSP.TC ---
Today's Communication/Plan
-
follow up post-transfusion CBC with AM labs
PT/OT
WBAT with surgical shoe left foot
cont abx
monitor renal function
Assessment / Plan
Assessment / Plan
Physical Exam
General: Well Developed, Well Nourished and No Apparent Distress
HEENT: NormoCephalic, Moist mucous membranes and Atraumatic
Respiratory: Clear
Cardiac: S1/S2 and Regular Rhythm; No Murmur or Rub
GI: Soft, Non Tender, Non Distended and Normal Bowel Sounds; No Organomegaly
Musculoskeletal: No Clubbing, No Cyanosis and No Edema
Skin: No Rash
Neuro: Nonfocal/grossly intact
63F Chronic Back Pain Opiate Dependence Neck Fusion CAD stent valve replacement HTN HLD GERD recent Lt Carotid stenosis endarterectomy 01/15 COPD Anxiety/Depression here for evaluation orthostatic hypotension anemia and uti.
# Dizziness concerning for orthostatic hypotension, possible symptomatic anemia
-Orthostatic hypotension borderline positive d/t drop in diastolic hypotension
-IV fluid supplementation
-Transfusing 1PRBC for goal Hgb 8
# Chronic normocytic anemia
-iron studies appreciated likely anemia of chronic disease
-Continue iron supplement
# Lateral left foot injury, acute fx left 5th metatarsal
Foot XR appreciated as follows:
1. acute nondisplaced intra-articular fracture Lt 5th metatarsal base.
2. Possible chronic stress fractures of the left 3rd and 4th metatarsal shafts.
3. Moderate-sized calcaneal enthesophytes.
4. Moderate diffuse soft tissue swelling and subcutaneous edema in the left forefoot
Discussed with podiatry, fit with surgical shoe, weightbearing as tolerated, outpatient follow up recommended
# Possible Acute kidney injury d/t Bactrim vs benign elevation Cr d/t Bactrim
-Bactrim discontinued
-IV fluid support
-Holding Lasix as patient is not taking
#Hyponatremia likely due to poor p.o. intake
-Urine sodium studies pending
-Monitor with IV fluids
-Na level Since Improved
# Urinary tract infection secondary to Klebsiella
-Urine culture from 01/22
-Bactrim discontinued in favor of Keflex
Recent left carotid endarterectomy on 01/15 with residual improving neck swelling from post op edema
Prior right-sided carotid endarterectomy 5 years ago
-Continue aspirin, statin
CAD status post stent
Aortic stenosis status post AVR
check repeat ECHO
Essential hypertension
-Continue Tylenol
Hyperlipidemia
-Continue statin
GERD
-Continue Protonix
Reported hx DM
most recent A1c 5.6 non-diabetic
home metformin most likely for weight loss
No need for routine FS at this time
COPD
Anxiety/depression
-Continue citalopram, diazepam
History of kidney stones
Chronic back pain/spinal stenosis
-Continue Percocet, gabapentin, Tylenol
DNR/DNI
DVT prophylaxis�heparin
Regular diet
PT/OT
discussed with patient at bedside and patient's daughter Christy over phone
I spent a total of 60 minutes with the patient or on the floor. More than 50% of this time involved counseling and coordination of care.
Anticipated Discharge: 24 - 48 hours
Subjective/Interval History
-
Date of Service: January 31, 2024
No acute distress resting comfortably in bed. Continues to report intermittent dizziness left foot pain.
Objective Data
-
Labs:
Laboratory Results
01/31/24
07:28
WBC 5.2
Hgb 7.3 L
Hct 22.9 L
Plt Count 195
Sodium Pending
Potassium Pending
Chloride Pending
Carbon Dioxide Pending
BUN Pending
Creatinine Pending
Glucose Pending
Calcium Pending
Total Bilirubin Pending
AST Pending
ALT Pending
Alkaline Phosphatase Pending
Vital Signs:
Vital Signs
Temp Pulse Resp BP Pulse Ox
98.4 F 62 20 123/55 96
01/31/24 04:46 01/31/24 04:46 01/31/24 04:46 01/31/24 04:46 01/31/24 04:46
I&O
01/30/24 01/31/24 02/01/24
06:59 06:59 06:59
Intake Total 480 / 480
Balance 480 / 480
[2024-01-31] MEDS: NSS 1000 IV ×2 (09:04→16:28)
[2024-01-31 09:12] LABS: ALT (SGPT) < 10 U/L (0-35); AST (SGOT) 18 U/L (14-36); Alkaline Phosphatase 72 U/L (38-126); Blood Urea Nitrogen 36 mg/dl (7-17); Calcium 8.4 mg/dl (8.4-10.2); Carbon Dioxide 19 mmol/L (22-30); Chloride 103 mmol/L (98-107); Estimated Creatinine Clearance 46 ml/min; Glucose 87 mg/dl (70-99); Potassium 4.9 mmol/L (3.5-5.1); Sodium 133 mmol/L (135-145); Total Bilirubin 0.4 mg/dl (0.2-1.3); Total Protein 5.8 g/dl (6.3-8.2); eGFR 45.63
[2024-01-31 09:19] LABS: Glucose - Point of Care 100 mg/dl (70-99)
[2024-01-31 11:11] LABS: Hematocrit 23.2 % (37.0-47.0); Hemoglobin 7.4 g/dL (12.0-16.0)
[2024-01-31 11:48] LABS: Glucose - Point of Care 124 mg/dl (70-99)
--- NOTE | 2024-01-31 13:16 | CM ---
Addendum entered by Catherine Mera 01/31/24 15:42:
Referral sent to [facility]
[phone]

Original Note:
fleet dispatch manager reviewed patient's chart and met with patient and patient lives with her daughter in a 1 story home, patient was independent with adl's and uses a walker with ambulation, patient is currently requiring oxygen, and did not have oxygen in
home, patient had [facility] visiting nurses, [facility] pharmacy.
Per patient's daughter, Christy patient has been falling at home, unable to get up from chair at times and has had falls, patient has been incontinent prior to admission, daughter is looking for private care givers or assisted living, senior case manager
explained that private caregivers are private pay and assisted living is also private pay, patient 's daughter became upset stating that the family did not have the finances for private pay for services in home or assisted living, senior case manager also
directed patient's daughter to contact [facility] for services. Patient would benefit from PT/OT to see if patient qualifies for skilled placement. Patient's daughter would be interested in [facility] in [place].
Plan; Await PT/OT emulations for discharge planning needs.
--- NOTE | 2024-01-31 13:26 | PTCARENOTE ---
Left foot surgical shoe applied to left foot of patient as requested. 1 unit PRBC's currently infusing, patient tolerating well.
[2024-01-31] MEDS: LIPITOR 20 MG PO (16:33)
[2024-01-31] MEDS: TENORMIN 25 MG PO (17:47)
[2024-01-31] MEDS: CELEXA 40 MG PO (19:46)
[2024-02-01] VITALS (8 sets, daily range): BP systolic 103–142; BP diastolic 46–64; PULSE 72–81; O2SAT 88–92; BMI 33.1
[2024-02-01] MEDS: ROXICODONE 10 MG PO ×3 (03:35→16:42)
[2024-02-01] MEDS: TYLENOL 325 MG PO ×3 (03:35→16:43)
[2024-02-01] MEDS: NSS 1000 IV (06:21)
--- NOTE | 2024-02-01 07:29 | W.PN.HOSP.TC ---
Today's Communication/Plan
-
PT/OT
WBAT with surgical shoe left foot
cont abx
monitor renal function
wean O2 supplementation as tolerated
Pulm eval
Assessment / Plan
Assessment / Plan
Physical Exam
General: Well Developed, Well Nourished and No Apparent Distress
HEENT: NormoCephalic, Moist mucous membranes and Atraumatic
Respiratory: Clear
Cardiac: S1/S2 and Regular Rhythm; No Murmur or Rub
GI: Soft, Non Tender, Non Distended and Normal Bowel Sounds; No Organomegaly
Musculoskeletal: No Clubbing, No Cyanosis and No Edema
Skin: No Rash
Neuro: Nonfocal/grossly intact
63F Chronic Back Pain Opiate Dependence Neck Fusion CAD stent valve replacement HTN HLD GERD recent Lt Carotid stenosis endarterectomy 01/15 COPD Anxiety/Depression here for evaluation orthostatic hypotension anemia, uti, new onset Acute Hypoxic
Respiratory Failure Pulmonary HTN.
# Dizziness concerning for orthostatic hypotension, possible symptomatic anemia
-Orthostatic hypotension borderline positive d/t drop in diastolic hypotension
-IV fluid supplementation
-Transfused 1PRBC for goal Hgb 8
-H&H currently at goal. Dizziness appears resolved at this time.
# Chronic normocytic anemia
-iron studies appreciated likely anemia of chronic disease
-Continue iron supplementation
# Lateral left foot injury, acute fx left 5th metatarsal
Foot XR appreciated as follows:
1. acute nondisplaced intra-articular fracture Lt 5th metatarsal base.
2. Possible chronic stress fractures of the left 3rd and 4th metatarsal shafts.
3. Moderate-sized calcaneal enthesophytes.
4. Moderate diffuse soft tissue swelling and subcutaneous edema in the left forefoot
Discussed with podiatry, fit with surgical shoe, weightbearing as tolerated, outpatient follow up recommended
# Possible Acute kidney injury d/t Bactrim vs benign elevation Cr d/t Bactrim
-Bactrim discontinued
-IV fluid support
-Holding Lasix as patient is not taking
-Cr since improved
#Hyponatremia likely due to poor p.o. intake
-Urine sodium studies pending
-Monitor with IV fluids
-Na level Since Improved/Stable
# Urinary tract infection secondary to Klebsiella
-Urine culture from 01/22
-Bactrim discontinued in favor of Keflex
-cont Keflex
Recent left carotid endarterectomy on 01/15 with residual improving neck swelling from post op edema
Prior right-sided carotid endarterectomy 5 years ago
-Continue aspirin, statin
CAD status post stent
Aortic stenosis status post AVR
ECHO appreciated EF 60-65% stage II diastolic dysfunction mild/mod MR MS normal function bioprosthetic aortic valve mod TR severe pulm HTN
compared to previous ECHO valve abn's progress, unable to measure PASP previous study
Acute Hypoxic respiratory Failure possibly d/t pulm htn as above
COPD no wheezing noted
wean oxygen supplementation as tolerated
Pulm eval requested
Essential hypertension
-cont Atenolol with holding parameters
Hyperlipidemia
-Continue statin
GERD
-Continue Protonix
Reported hx DM
Updated A1c 6.0 prediabetic
home metformin most likely for weight loss
No need for routine FS at this time
Anxiety/depression
-Continue citalopram, diazepam
History of kidney stones
Chronic back pain/spinal stenosis
-Continue Percocet, gabapentin, Tylenol
DNR/DNI
DVT prophylaxis�heparin
Regular diet
PT/OT appreciated SNF rehab
discussed with patient at bedside and patient's daughter Christy over phone
I spent a total of 55 minutes with the patient or on the floor. More than 50% of this time involved counseling and coordination of care.
Anticipated Discharge: 24 - 48 hours
Subjective/Interval History
-
Date of Service: February 01, 2024
Reports general malaise/weakness but at least notes resolution of dizziness since transfusion. Reports pain but controlled with current pain regimen.
Objective Data
-
Labs:
Laboratory Results
02/01/24
06:22
WBC Pending
Hgb Pending
Hct Pending
Plt Count Pending
Sodium Pending
Potassium Pending
Chloride Pending
Carbon Dioxide Pending
BUN Pending
Creatinine Pending
Glucose Pending
Calcium Pending
Vital Signs:
Vital Signs
Temp Pulse Resp BP Pulse Ox
97.9 F 70 16 103/64 95
02/01/24 03:46 02/01/24 03:46 02/01/24 03:46 02/01/24 03:46 02/01/24 03:46
I&O
01/31/24 02/01/24 02/02/24
06:59 06:59 06:59
Intake Total 480 / 480 3090 / 3090
Output Total 650 / 650
Balance 480 / 480 2440 / 2440
[2024-02-01 07:36] LABS: Hematocrit 26.6 % (37.0-47.0); Hemoglobin 8.2 g/dL (12.0-16.0); Mean Corp Hgb Conc. 30.8 g/dL (33.0-37.0); Mean Corpuscular Hgb 29.1 pg (27.0-31.0); Mean Corpuscular Volume 94.3 fL (81.0-99.0); Platelet Count 198 10^3/uL (130-400); Red Blood Cell Count 2.82 10^6/uL (4.20-5.40); Red Cell Dist. Width 16.2 % (11.5-14.5); White Blood Cell Count 4.5 10^3/uL (4.8-10.8)
[2024-02-01 07:50] LABS: Blood Urea Nitrogen 18 mg/dl (7-17); Calcium 8.7 mg/dl (8.4-10.2); Carbon Dioxide 21 mmol/L (22-30); Chloride 110 mmol/L (98-107); Estimated Creatinine Clearance 75 ml/min; Glucose 98 mg/dl (70-99); Magnesium 1.7 mg/dl (1.6-2.3); Phosphorus 3.2 mg/dl (2.5-4.5); Sodium 135 mmol/L (135-145); eGFR > 60.00
[2024-02-01] MEDS: NEURONTIN 600 MG PO ×3 (08:59→21:08)
[2024-02-01] MEDS: FEOSOL 325 MG PO (08:59)
[2024-02-01] MEDS: HEPARIN 5000 UNITS SC ×2 (09:00→21:08)
[2024-02-01] MEDS: PROTONIX 40 MG PO (09:00)
[2024-02-01] MEDS: ASPIR LOW (ENTERIC COATED) 81 MG PO (09:00)
[2024-02-01] MEDS: KEFLEX 500 MG PO ×4 (09:00→21:08)
[2024-02-01] MEDS: LIPITOR 20 MG PO (16:43)
[2024-02-01] MEDS: TENORMIN 25 MG PO (16:43)
[2024-02-01 19:24] LABS: Hepatitis C Antibody Negative (Negative)
[2024-02-01] MEDS: CELEXA 40 MG PO (21:08)
[2024-02-01] MEDS: VALIUM PO (21:14)
[2024-02-02] VITALS (7 sets, daily range): BP systolic 126–178; BP diastolic 60–105; PULSE 71; O2SAT 97; BMI 32.5
[2024-02-02] MEDS: TYLENOL 325 MG PO ×2 (02:28→09:16)
[2024-02-02] MEDS: ROXICODONE 10 MG PO ×4 (02:28→21:08)
[2024-02-02 06:57] LABS: Hematocrit 27.2 % (37.0-47.0); Hemoglobin 8.7 g/dL (12.0-16.0); Mean Corpuscular Hgb 29.5 pg (27.0-31.0); Mean Corpuscular Volume 92.2 fL (81.0-99.0); Platelet Count 237 10^3/uL (130-400); Red Blood Cell Count 2.95 10^6/uL (4.20-5.40); Red Cell Dist. Width 16.1 % (11.5-14.5); White Blood Cell Count 5.4 10^3/uL (4.8-10.8)
[2024-02-02 07:18] LABS: NT-proBNP 6480 pg/ml
[2024-02-02 07:21] LABS: Blood Urea Nitrogen 12 mg/dl (7-17); Calcium 9.5 mg/dl (8.4-10.2); Carbon Dioxide 23 mmol/L (22-30); Chloride 109 mmol/L (98-107); Estimated Creatinine Clearance 99 ml/min; Glucose 117 mg/dl (70-99); Magnesium 1.7 mg/dl (1.6-2.3); Phosphorus 3.8 mg/dl (2.5-4.5); Potassium 5.2 mmol/L (3.5-5.1); Sodium 136 mmol/L (135-145); eGFR > 60.00
--- NOTE | 2024-02-02 08:19 | CON.PUL ---
Consultation
Consultation Request
Date/Time Consultation Requested: 02/01/2024 - 1330
Date/Time Consultation Performed: 02/02/2024 - 0759
Requesting Provider: Dr. Matos
Performing Provider: Dr. Wei
Reason for Consultation: pHTN and acute hypoxia
Medical History
-
Chief Complaint: Falls and general malaise
History of Present Illness:
63-year-old former tobacco smoker (quit 2022 - [id number] Hx) with reported Hx of COPD, suspected LANE, HTN, HLD, DM type II, severe s/p SAVR (10/2023), CAD s/p CABG (10/2023), and Hx of pleural effusions p/w frequent falls and feeling 'out of it'
since her left-CEA on 01/16/2024. Labs showed anemia to 7.6, hyponatremia to 129, ALEX to 1.9 (of note, pt was on bactrim due to UTI Dx on 01/23/2024), UA showed +2 leukocyte esterase, and urine culture was sent. 1L NS 0.9% given in ER and pt admitted
to hospitalist service. TTE was performed showing preserved LVEF at 65-70% with stage II diastolic dysfunction with increased LV filling pressures; also with severe pHTN with PASP 56mmHg. She required 2L/min which is new. Pulmonary now consulted
for additional recommendations.
When I saw the pt she was in bed in NAD. She remains on 2L/min and is feeling better. Lasix started 02/02/2024. She is still interested in obtaining a sleep study once she is back home. She says that she is known to snore, but does not have
excessive daytime sleepiness. She denies chest pain, GUTIÉRREZ, abd pain, N/V/f/c.
Of note, pt follows with us in [facility] office, last us on 12/05/[address] Nolan and FITO Davila. A LDCT Chest was ordered for September 2024 for lung cancer screening purposes. A CXR was also ordered given her Hx of pleural effusions,
albeit her R-effusion acummulated s/p her CABG in Oct 2023. PFTs were to be obtained in few months to eval for COPD, and a home sleep apnea test was getting set up to eval for sleep apnea.
PMHx: carotid artery stenosis s/p L-CEA (01/16/2024), former tobacco smoker, DM type II, HTN, HLD, CAD s/p CABG, severe , at risk for LANE, Hx of COPD, Hx of PNA, kidney stones, frequent ear infections, spinal stenosis, Hx of pleural effusions
PSHx: CABG, R-carotid artery stent placement (2008), left CEA with patch angioplasty (01/16/2024), spinal surgery, hernia repair, SAVR (October 2023)
Past Medical History
Past Medical History: Other (above as per HPI)
Past Surgical History: Other (above as per HPI)
Social History
Tobacco: Former Smoker (Quit 2022 - 40-PY Hx)
Alcohol: None
Drug: None
Living: With Family (daughter)
Employment: Employed ([employer])
Family History
Family History: CAD (Father: Hx of MA at age 33 and CABG x4), Diabetes (Mother) and Other (Mother: CVA)
Allergies / Home Medications
Allergies
Allergy/AdvReac Type Severity Reaction Status Date / Time
clams Allergy Vomiting Verified 01/23/24 10:18
Penicillins Allergy Hives Verified 01/23/24 10:18
pepper (genus Capsicum) Allergy Vomiting Verified 01/23/24 10:18
sulfamethoxazole AdvReac Mild Creatine Verified 01/31/24 11:39
[From Bactrim] Elevation
trimethoprim [From Bactrim] AdvReac Mild Creatine Verified 01/31/24 11:39
Elevation
Home Medications
�Medication �Instructions �Recorded �Confirmed �Last Taken �Type
gabapentin 600 mg tablet 600 mg PO TID Neuropathic pain 10/03/23 01/30/24 01/29/24 History
acetaminophen 650 mg 1,300 mg PO BIDPRN PRN mild pain 10/08/23 01/30/24 01/15/24 18:00 History
tablet,extended release
aspirin 81 mg tablet,delayed 81 mg PO DAILY Blood Clot 10/08/23 01/30/24 01/29/24 History
release Prevention/Tx
citalopram 40 mg tablet 40 mg PO HS Depression/Anxiety #10 10/21/23 01/30/24 01/29/24 Rx
tabs
ferrous sulfate 325 mg (65 mg 325 mg PO DAILY anemia #30 tabs 10/21/23 01/30/24 01/29/24 Rx
iron) tablet (FeroSul)
pantoprazole 40 mg tablet,delayed 40 mg PO DAILY #30 tabs 10/21/23 01/30/24 01/29/24 Rx
release
oxycodone-acetaminophen 10 mg-325 1 tab PO Q4HPRN PRN SEVERE PAIN 01/10/24 01/30/24 01/30/24 History
mg tablet
atorvastatin 20 mg tablet (Lipitor) 20 mg PO QPM High Cholesterol 01/23/24 01/30/24 01/29/24 History
diazepam 5 mg tablet 5 mg PO HSPRN PRN SLEEP 01/23/24 01/30/24 01/29/24 History
furosemide 40 mg tablet (Lasix) 40 mg PO DAILY Fluid 01/23/24 01/30/24 01/29/24 History
Retention/Swelling
metformin 500 mg tablet 500 mg PO BID@0800,1700 Diabetes 01/23/24 01/30/24 01/29/24 History
atenolol 25 mg tablet 25 mg PO QPM #30 tabs 01/24/24 01/30/24 01/29/24 Rx
sulfamethoxazole 800 1 tab PO BID Infection 01/31/24 01/30/24 01/29/24 History
mg-trimethoprim 160 mg tablet
Review of Systems
-
History Source: Patient
All other systems: Negative unless noted
Vitals / Labs / Diagnostic Testing
Vital Signs
Temp Pulse Resp BP Pulse Ox
97.7 F 81 18 149/105 92
02/02/24 07:30 02/02/24 07:30 02/02/24 07:30 02/02/24 07:30 02/02/24 07:30
Lab Data
02/02/24 06:35
02/02/24 06:35
Microbiology
01/30/24 19:01 Urine Urine Culture - Preliminary
Enterococcus species
Diagnostic Testing:
Physical Exam
-
HEENT: Normocephalic and Anicteric
Cardiovascular: S1/S2, Murmur (JOSE heard at RUSB) and Peripheral Edema (+1 LE edema (pitting))
Respiratory: Wheeze (negative), Rales (bibasilar), Rhonchi (negative) and Non-Labored Respirations
GI: Soft, Non Distended, Non Tender and Normal Bowel Sounds
Neurology: AO x 3 and Tremors (negative)
Skin: Warm and Dry
General: Comfortable and Chills (negative)
Assessment
-
Assessment: 63-year-old former tobacco smoker (quit 2022 - 09-[id number]-pjhm Hx) with reported Hx of COPD, suspected LANE, HTN, HLD, DM type II, severe s/p SAVR (10/2023), CAD s/p CABG (10/2023), and Hx of pleural effusions p/w frequent falls and
feeling 'out of it' since her left-CEA on 01/16/2024. Labs showed anemia to 7.6, hyponatremia to 129, ALEX to 1.9 (of note, pt was on bactrim due to UTI Dx on 01/23/2024), UA showed +2 leukocyte esterase, and urine culture was sent. 1L NS 0.9% given
in ER and pt admitted to hospitalist service. TTE was performed showing preserved LVEF at 65-70% with stage II diastolic dysfunction with increased LV filling pressures; also with severe pHTN with PASP 56mmHg. She required 2L/min which is new.
Pulmonary now consulted for additional recommendations.
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
pleural effusions
Impression:
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
#Acute HFpEF with stage II diastolic dysfunction and moderate MR
#Acute hypoxic respiratory failure on supplemental oxygen
#At risk for LANE
#UTI
#CAD s/p CABG (10/2023)
#Severe s/p SAVR (10/2023)
#Former tobacco smoker with 40-PY Hx, quit Sep 2023
#Anemia s/p 1 U PRBC on 01/31/2024 (baseline Hb 8.5-9.5)
#ALEX - now resolved, and was likely due to recent bactrim
Plan:
- Diuresis with goal net negative 1.5-2L per 24 hrs for next 24-48 hrs, then re-assess
- Trend UOP, sCr and check daily weights
- would repeat TTE as an outpatient once patient optimized and is euvolemic to re-assess severity
- Replete K>4, Mg>2 while diuresing
- Maintain SpO2 >90-94% with supplemental O2 as needed
- Eventual outpatient HSAT/watchPAT
- Incentive spirometer encouraged
- prn nebulized bronchodilators
- ABx per primary team
- Maintain euglycemia with goal BG >100 and <180
- LDCT chest imaging in September 2024 - already ordered from [facility] office
- DVT ppx: HSQ
Pulmonary service will continue to follow along.
Patient seen and evaluated on 02/02/2024
Total time spent today was 55 minutes for this encounter. Time includes reviewing laboratory test/imaging results, reviewing pertinent medical records, obtaining and reviewing medical history, performing an appropriate exam, ordering medications,
tests and procedures. Time also includes documentation of this encounter, coordinating patient care and communicating with other healthcare professionals. Total time does not include separately billed tests performed on this date of service.
Data:
CXR 02-02-2024: Constellation of findings suggestive of mild pulmonary edema. Trace bilateral pleural effusions.
TTE 01-31-2024:
Normal left ventricular systolic function. Estimated ejection fraction is 65-
70%.
Stage II diastolic dysfunction suggestive of abnormal relaxation and increased
filling pressures.
Mild/moderate mitral regurgitation. Mild/moderate mitral stenosis. Mean
gradient 5 mmHg.
Normally functioning bioprosthetic aortic valve. Peak/mean gradients across
the aortic valve are 19/9 mmHg. No AR.
Mildly enlarged right ventricular size. Normal right ventricular systolic
function.
Moderate tricuspid regurgitation. Severely elevated PASP. Estimated pulmonary
artery pressure of 56 mmHg. Assuming a right atrial pressure of 3 mmHg.
Compared to 10/10/23: the patient has undergone interim bio-AVR. MR has
progressed from mild to mild/moderate. Mild/moderate MS is present. TR has
progressed from mild to moderate. PASP was unable to be measured on prior
study.
[2024-02-02] MEDS: PROTONIX 40 MG PO (09:06)
[2024-02-02] MEDS: NEURONTIN 600 MG PO ×3 (09:06→21:06)
[2024-02-02] MEDS: FEOSOL 325 MG PO (09:07)
[2024-02-02] MEDS: ASPIR LOW (ENTERIC COATED) 81 MG PO (09:07)
[2024-02-02] MEDS: HEPARIN 5000 UNITS SC ×2 (09:07→21:06)
[2024-02-02] MEDS: KEFLEX 500 MG PO ×4 (09:07→21:06)
--- NOTE | 2024-02-02 09:37 | W.PN.HOSP.TC ---
Today's Communication/Plan
-
diuresis
abx
wean O2 supplementation as tolerated
Pain control
PT/OT
Assessment / Plan
Assessment / Plan
Physical Exam
General: Well Developed, Well Nourished and No Apparent Distress
HEENT: NormoCephalic, Moist mucous membranes and Atraumatic
Respiratory: Clear
Cardiac: S1/S2 and Regular Rhythm; No Murmur or Rub
GI: Soft, Non Tender, Non Distended and Normal Bowel Sounds; No Organomegaly
Musculoskeletal: No Clubbing, No Cyanosis and No Edema
Skin: No Rash
Neuro: Nonfocal/grossly intact
63F Chronic Back Pain Opiate Dependence Neck Fusion CAD stent valve replacement HTN HLD GERD recent Lt Carotid stenosis endarterectomy 01/15 COPD Anxiety/Depression here for evaluation orthostatic hypotension anemia, uti, new onset Acute Hypoxic
Respiratory Failure Pulmonary HTN.
# Dizziness concerning for orthostatic hypotension, possible symptomatic anemia
-Orthostatic hypotension borderline positive d/t drop in diastolic hypotension
-IV fluid supplementation
-Transfused 1PRBC for goal Hgb 8
-H&H currently at goal. Dizziness appears resolved at this time.
# Chronic normocytic anemia
-iron studies appreciated likely anemia of chronic disease
-Continue iron supplementation
# Lateral left foot injury, acute fx left 5th metatarsal
Foot XR appreciated as follows:
1. acute nondisplaced intra-articular fracture Lt 5th metatarsal base.
2. Possible chronic stress fractures of the left 3rd and 4th metatarsal shafts.
3. Moderate-sized calcaneal enthesophytes.
4. Moderate diffuse soft tissue swelling and subcutaneous edema in the left forefoot
Discussed with podiatry, fit with surgical shoe, weightbearing as tolerated, outpatient follow up recommended
# Possible Acute kidney injury d/t Bactrim vs benign elevation Cr d/t Bactrim
-Bactrim discontinued
-IV fluid support
-Holding Lasix as patient is not taking
-Cr since improved
#Hyponatremia likely due to poor p.o. intake
-Urine sodium studies pending
-Monitor with IV fluids
-Na level Since Improved/Stable
# Urinary tract infection secondary to Klebsiella
-Urine culture from 01/22
-Bactrim discontinued in favor of Keflex
-cont Keflex
Recent left carotid endarterectomy on 01/15 with residual improving neck swelling from post op edema
Prior right-sided carotid endarterectomy 5 years ago
-Continue aspirin, statin
CAD status post stent
Aortic stenosis status post AVR
ECHO appreciated EF 60-65% stage II diastolic dysfunction mild/mod MR MS normal function bioprosthetic aortic valve mod TR severe pulm HTN
compared to previous ECHO valve abn's progress, unable to measure PASP previous study
Acute Hypoxic respiratory Failure d/t Acute on Chronic HFpEF and possibly pulm htn as above
COPD no wheezing noted
BNP 6000s significantly elevated from prior value
wean oxygen supplementation as tolerated
IV lasix 40 mg BID started
daily weights I/O
Pulm eval appreciated
Cardio eval appreciated
Essential hypertension
-cont Atenolol with holding parameters
Hyperlipidemia
-Continue statin
GERD
-Continue Protonix
Reported hx DM
Updated A1c 6.0 prediabetic
home metformin most likely for weight loss
No need for routine FS at this time
Anxiety/depression
-Continue citalopram, diazepam
History of kidney stones
Chronic back pain/spinal stenosis
-Continue Percocet, gabapentin, Tylenol
DNR/DNI
DVT prophylaxis�heparin
Regular diet
PT/OT appreciated SNF rehab
discussed with patient at bedside and patient's daughter Christy over phone
I spent a total of 55 minutes with the patient or on the floor. More than 50% of this time involved counseling and coordination of care.
Anticipated Discharge: 24 - 48 hours
Subjective/Interval History
-
Date of Service: February 02, 2024
Seen and examined at bedside in no acute distress resting comfortably in bed. Continues to report general malaise. Remains dependent on oxygen.
Objective Data
-
Labs:
Laboratory Results
02/02/24
06:35
WBC 5.4
Hgb 8.7 L
Hct 27.2 L
Plt Count 237
Sodium 136
Potassium 5.2 H
Chloride 109 H
Carbon Dioxide 23
BUN 12
Creatinine 0.6
Glucose 117 H
Calcium 9.5
Vital Signs:
Vital Signs
Temp Pulse Resp BP Pulse Ox
97.7 F 81 18 149/105 92
02/02/24 07:30 02/02/24 07:30 02/02/24 07:30 02/02/24 07:30 02/02/24 07:30
I&O
02/01/24 02/02/24 02/03/24
06:59 06:59 06:59
Intake Total 3090 / 3090 600 / 600
Output Total 650 / 650
Balance 2440 / 2440 600 / 600
--- NOTE | 2024-02-02 14:55 | CON.CAR ---
Addendum entered and electronically signed by Carlos Eduardo Natarajan MD 02/02/24 17:52:
I saw and examined the patient.
The IT SERVICE CONTINUITY SUPERVISOR's note was reviewed and I agree with the note.
63 y/o female with CAD s/p CABG/AVR 10/18/23, hypertension, DM, L CEA (earlier this month) who presented with falls and has been treated for UTI, ALEX and anemia. Consult due to concerns of heart failure. Patient had increased O2 requirements.
Chest x-ray suggestive of heart failure, proBNP elevated. Of note patient has received IV fluids as well as PRBCs this admission. Suspected of volume overload currently in no distress and breathing comfortably on 2 L. Most recent echo shows
preserved left ventricular function and normally functioning bioprosthetic aortic valve.
-Continue with diuresis with IV Lasix. Will monitor response
-Follow labs and weights
-Treatment of anemia as directed by primary team.
-Treatment of UTI as directed by primary team
Original Note:
Consultation
Consultation Request
Date/Time Consultation Requested: 02/02/24 1414
Date/Time Consultation Performed: 02/02/24 1430
Requesting Provider: Dr. Matos
Performing Provider: [place] PAYTON for Dr. Natarajan
Reason for Consultation: CHF
Medical History
-
Chief Complaint: falls, weakness
History of Present Illness:
63 y/o female with CAD s/p CABG/AVR 10/18/23, hypertension, DM, Carotid disease with history of stenting, but more recently L CEA (earlier this month) who is here for 3 falls. She reports she just got so weak that she fell. She was not really eating
and drinking. She also was struggling with her chronic back pain. She denies any syncope, though did feel light-headed at times. When she came in, she was seen to have ALEX and with concern for orthostasis (SBP's were okay, but diastolic BP went from
76 to 65). She is being treated for a UTI with abx. She got a total of 5 L of IVF and a unit of PRBC's. She has started to require O2 and there is concern for [id number] HFpEF. She is normally on lasix 40 mg PO daily, but held here for above.
She is in no distress at the time of my assessment. I spoke with her daughter over the phone (Christy) and gave a cardiac update at patient's request. She suffered a left 5th metatarsal fracture.
Past Medical History
Past Medical History: CAD, CHF, HTN, Hypercholesterolemia, NIDDM, Valvular Disease and Other (carotid disease)
Social History
Tobacco: Former Smoker
Family History
Family History: Reviewed & Not Pertinent
Allergies / Home Medications
Allergy/AdvReac Type Severity Reaction Status Date / Time
clams Allergy Vomiting Verified 01/23/24 10:18
Penicillins Allergy Hives Verified 01/23/24 10:18
pepper (genus Capsicum) Allergy Vomiting Verified 01/23/24 10:18
sulfamethoxazole AdvReac Mild Creatine Verified 01/31/24 11:39
[From Bactrim] Elevation
trimethoprim [From Bactrim] AdvReac Mild Creatine Verified 01/31/24 11:39
Elevation
�Medication �Instructions �Recorded �Confirmed �Type
gabapentin 600 mg tablet 600 mg PO TID Neuropathic pain 10/03/23 01/30/24 History
acetaminophen 650 mg 1,300 mg PO BIDPRN PRN mild pain 10/08/23 01/30/24 History
tablet,extended release
aspirin 81 mg tablet,delayed 81 mg PO DAILY Blood Clot 10/08/23 01/30/24 History
release Prevention/Tx
citalopram 40 mg tablet 40 mg PO HS Depression/Anxiety #10 10/21/23 01/30/24 Rx
tabs
ferrous sulfate 325 mg (65 mg 325 mg PO DAILY anemia #30 tabs 10/21/23 01/30/24 Rx
iron) tablet (FeroSul)
pantoprazole 40 mg tablet,delayed 40 mg PO DAILY #30 tabs 10/21/23 01/30/24 Rx
release
oxycodone-acetaminophen 10 mg-325 1 tab PO Q4HPRN PRN SEVERE PAIN 01/10/24 01/30/24 History
mg tablet
atorvastatin 20 mg tablet (Lipitor) 20 mg PO QPM High Cholesterol 01/23/24 01/30/24 History
diazepam 5 mg tablet 5 mg PO HSPRN PRN SLEEP 01/23/24 01/30/24 History
furosemide 40 mg tablet (Lasix) 40 mg PO DAILY Fluid 01/23/24 01/30/24 History
Retention/Swelling
metformin 500 mg tablet 500 mg PO BID@0800,1700 Diabetes 01/23/24 01/30/24 History
atenolol 25 mg tablet 25 mg PO QPM #30 tabs 01/24/24 01/30/24 Rx
sulfamethoxazole 800 1 tab PO BID Infection 01/31/24 01/30/24 History
mg-trimethoprim 160 mg tablet
Review of Systems
-
History Source: Patient
All other systems: Negative unless noted
Respiratory: Trouble Breathing (tight feeling)
Neurological: Weakness
Endocrine: Other (light-headed, falls)
Physical Exam
Vital Signs
Temp Pulse Resp BP Pulse Ox
97.7 F 78 18 133/71 94
02/02/24 11:31 02/02/24 11:31 02/02/24 11:31 02/02/24 11:31 02/02/24 11:31
Lab Results
02/02/24 06:35
02/02/24 06:35
Axp-I-Dpanznnonps Pept 6480 pg/ml 02/02/24 06:35
Physical Exam
General: Well Developed and No Apparent Distress
HEENT: Normocephalic and Anicteric
Respiratory: Other (on O2 by NC, diminished to bases)
Cardiac: Regular Rhythm
Musculoskeletal: Edema (mild BLE edema)
Skin: Warm and Dry
Neuro: AO x 3
Psych: Calm
Impression / Plan
-
Weakness/falls:
-s/p fluid, blood
-UTI being treated
-ALEX resolved
-PT/OT following
-no longer on tele, but EKG and strips in chart all SR
Pqdaj-cc-ebogowr HFpEF:
-echo as noted below
-CXR, BNP, weight all c/w excess volume. Notably, patient received 5L IVF this admit and 1 unit PRBC's, all while lasix held, so likely volume overloaded for this reason.
-agree with IV lasix, which requires intensive monitoring. Patient needs to go back on tele in this setting- discussed with patient and nursing.
Bio AVR:
-stable by echo
CAD s/p CABG:
-seems stable
-continue ASA, statin, and BB
ALEX:
-resolved
-Abx switched
-IV given as noted, but now volume up
Carotid disease:
-recent L CEA
-follows with vascular surgery
Data Reviewed
-
EKG: Tracing Personally Visualized and interpreted (01/30/24 NSR)
Radiology: Report Reviewed by me (CXR: Constellation of findings suggestive of mild pulmonary edema. Trace bilateral pleural effusions.)
Medical Tests (Nuc Med, Echo etc): Report Reviewed by me (Echo 01/31/24: EF 65-70%. Stage II DD, Mild/moderate mitral regurgitation. Mild/moderate MS. MG 5 mmHg. Normally functioning bioprosthetic aortic valve. Peak/mean gradients 19/9 mmHg. No AR.
Mildly enlarged right ventricular size with normal function. Moderate TR. Severely elevated PASP. PAP of 56 mm)
Labs: Labs Reviewed by me
--- NOTE | 2024-02-02 15:52 | CM ---
Addendum entered by Rosie Melendez 02/02/24 17:20:
Patient given list of long term facilities and instructed to review and identify 3 preference
Original Note:
Plan: PT recommends SNF @ Discharge
Technical Agronomist spoke with daughter, Hina Banegas, via phone to discuss discharge plan
Per request, e-mailed list of long term facilities to [email or web address]
Daughter plans to discuss discharge plan with her mother; will review list sent; identify 3 preferences; and contact Case Management office tomorrow
[2024-02-02] MEDS: LASIX 40 MG IV (16:43)
[2024-02-02] MEDS: LIPITOR 20 MG PO (17:52)
[2024-02-02] MEDS: TENORMIN 25 MG PO (17:52)
--- NOTE | 2024-02-02 20:00 | W.PN.UPDATE ---
Update Note
Progress Note Update
Patient desires to be changed to FULL code, code status changed.
[2024-02-02] MEDS: CELEXA 40 MG PO (21:06)
[2024-02-02] MEDS: VALIUM 5 MG PO (21:06)
--- NOTE | 2024-02-03 00:35 | PTCARENOTE ---
This RN went to place a DNR bracelet on pt and wanted to verify code status with pt before application of bracelet. The pt expressed wishes to no longer be DNR and to 'have everything done.' This RN notified NUTRITION ASSOCIATE and the DNR order was discontinued.
[2024-02-03] MEDS: ROXICODONE 10 MG PO ×3 (03:03→21:19)
[2024-02-03 03:16] VITALS: BP 120/55
[2024-02-03 06:00] VITALS: BMI 31.5
--- NOTE | 2024-02-03 07:02 | W.PN.HOSP.TC ---
Today's Communication/Plan
-
diuresis
abx
wean O2 supplementation as tolerated
Pain control
PT/OT
discharge planning Home rehab as per patient
Assessment / Plan
Assessment / Plan
Physical Exam
General: Well Developed, Well Nourished and No Apparent Distress
HEENT: NormoCephalic, Moist mucous membranes and Atraumatic
Respiratory: Clear
Cardiac: S1/S2 and Regular Rhythm; No Murmur or Rub
GI: Soft, Non Tender, Non Distended and Normal Bowel Sounds; No Organomegaly
Musculoskeletal: No Clubbing, No Cyanosis and No Edema
Skin: No Rash
Neuro: Nonfocal/grossly intact
63F Chronic Back Pain Opiate Dependence Neck Fusion CAD stent valve replacement HTN HLD GERD recent Lt Carotid stenosis endarterectomy 01/15 COPD Anxiety/Depression here for evaluation orthostatic hypotension anemia, uti, new onset Acute Hypoxic
Respiratory Failure Pulmonary HTN.
# Dizziness concerning for orthostatic hypotension, possible symptomatic anemia
-Orthostatic hypotension borderline positive d/t drop in diastolic hypotension
-IV fluid supplementation
-Transfused 1PRBC for goal Hgb 8
-H&H currently at goal, stable. Dizziness appears resolved at this time.
# Chronic normocytic anemia
-iron studies appreciated likely anemia of chronic disease
-Continue iron supplementation
# Lateral left foot injury, acute fx left 5th metatarsal
Foot XR appreciated as follows:
1. acute nondisplaced intra-articular fracture Lt 5th metatarsal base.
2. Possible chronic stress fractures of the left 3rd and 4th metatarsal shafts.
3. Moderate-sized calcaneal enthesophytes.
4. Moderate diffuse soft tissue swelling and subcutaneous edema in the left forefoot
Discussed with podiatry, fit with surgical shoe, weightbearing as tolerated, outpatient follow up recommended
# Possible Acute kidney injury d/t Bactrim vs benign elevation Cr d/t Bactrim
-Bactrim discontinued
-IV fluid support
-Holding Lasix as patient is not taking
-Cr since improved
#Hyponatremia likely due to poor p.o. intake
-received IV NS earlier in course of hospitalization
-Na level Since Improved/Stable
# Urinary tract infection secondary to Klebsiella
-Urine culture from 01/22
-Bactrim discontinued in favor of Keflex
-cont Keflex for 5 days, last day 02/03
Recent left carotid endarterectomy on 01/15 with residual improving neck swelling from post op edema
Prior right-sided carotid endarterectomy 5 years ago
-Continue aspirin, statin
CAD status post stent
Aortic stenosis status post AVR
ECHO appreciated EF 60-65% stage II diastolic dysfunction mild/mod MR MS normal function bioprosthetic aortic valve mod TR severe pulm HTN
compared to previous ECHO valve abn's progress, unable to measure PASP previous study
Acute Hypoxic respiratory Failure d/t Acute on Chronic HFpEF and possibly pulm htn as above
COPD no wheezing noted
BNP 6000s significantly elevated from prior value
wean oxygen supplementation as tolerated
IV lasix 40 mg BID started, cont
daily weights I/O
Pulm eval appreciated prn nebulized bronchodilators, when stable for discharge, d/c on albuterol HFA at 2 puffs q6hrs prn to be used till seen at [facility]
Cardio eval appreciated cont IV diuresis
Essential hypertension
-cont Atenolol with holding parameters
Hyperlipidemia
-Continue statin
GERD
-Continue Protonix
Reported hx DM
Updated A1c 6.0 prediabetic
home metformin most likely for weight loss
No need for routine FS at this time
Anxiety/depression
-Continue citalopram, diazepam
History of kidney stones
Chronic back pain/spinal stenosis
-Continue Percocet, gabapentin, Tylenol
DNR/DNI
DVT prophylaxis�heparin
Regular diet
PT/OT appreciated SNF rehab, patient however declines prefers home rehab
discussed with patient at bedside and patient's daughter Christy over phone
I spent a total of 55 minutes with the patient or on the floor. More than 50% of this time involved counseling and coordination of care.
Anticipated Discharge: 24 - 48 hours
Subjective/Interval History
-
Date of Service: February 03, 2024
no acute distress resting comfortably in bed. Remains oxygen dependent. Denies new acute issues at this time.
Objective Data
-
Labs:
Laboratory Results
02/03/24
06:53
WBC Pending
Hgb Pending
Hct Pending
Plt Count Pending
Sodium Pending
Potassium Pending
Chloride Pending
Carbon Dioxide Pending
BUN Pending
Creatinine Pending
Glucose Pending
Calcium Pending
Vital Signs:
Vital Signs
Temp Pulse Resp BP Pulse Ox
98.7 F 58 16 120/55 95
02/03/24 03:16 02/03/24 03:16 02/03/24 03:16 02/03/24 03:16 02/03/24 03:16
I&O
02/02/24 02/03/24 02/04/24
06:59 06:59 06:59
Intake Total 600 / 600 600 / 600
Balance 600 / 600 600 / 600
[2024-02-03 07:21] LABS: Hematocrit 27.5 % (37.0-47.0); Hemoglobin 8.6 g/dL (12.0-16.0); Mean Corp Hgb Conc. 31.3 g/dL (33.0-37.0); Mean Corpuscular Hgb 29.4 pg (27.0-31.0); Mean Corpuscular Volume 93.9 fL (81.0-99.0); Mean Platelet Volume 8.9 fL (7.4-10.4); Platelet Count 234 10^3/uL (130-400); Red Blood Cell Count 2.93 10^6/uL (4.20-5.40); Red Cell Dist. Width 15.9 % (11.5-14.5); White Blood Cell Count 5.2 10^3/uL (4.8-10.8)
[2024-02-03 07:42] LABS: Blood Urea Nitrogen 10 mg/dl (7-17); Calcium 9.3 mg/dl (8.4-10.2); Carbon Dioxide 26 mmol/L (22-30); Chloride 103 mmol/L (98-107); Estimated Creatinine Clearance 97 ml/min; Glucose 112 mg/dl (70-99); Magnesium 1.5 mg/dl (1.6-2.3); Phosphorus 4.2 mg/dl (2.5-4.5); Potassium 4.4 mmol/L (3.5-5.1); Sodium 136 mmol/L (135-145); eGFR > 60.00
[2024-02-03 08:09] VITALS: BP 120/57
[2024-02-03] MEDS: ASPIR LOW (ENTERIC COATED) 81 MG PO (09:11)
[2024-02-03] MEDS: FEOSOL 325 MG PO (09:11)
[2024-02-03] MEDS: PROTONIX 40 MG PO (09:11)
[2024-02-03] MEDS: NEURONTIN 600 MG PO ×3 (09:11→21:21)
[2024-02-03] MEDS: KEFLEX 500 MG PO ×4 (09:11→21:21)
[2024-02-03] MEDS: LASIX 40 MG IV ×2 (09:11→17:05)
[2024-02-03] MEDS: HEPARIN 5000 UNITS SC ×2 (09:12→21:00)
[2024-02-03] MEDS: MAGNESIUM SULFATE 50 IV (11:12)
[2024-02-03 12:14] VITALS: BP 123/65
--- NOTE | 2024-02-03 13:34 | W.PN.CD ---
Today's Communication / Plan
-
Improvement with IV Lasix. Patient feeling better still on O2 also with mild lower extremity edema. Continue with IV Lasix and continue to wean O2. With presentation with ALEX will need to monitor renal function and make sure we do not overdiuresis
Impression / Plan
-
Weakness/falls:
-s/p fluid, blood
-UTI being treated
-ALEX resolved
-PT/OT following
Vefeg-bl-rozgwiz HFpEF:
-echo as noted below
-CXR, BNP, weight all c/w excess volume. Notably, patient received 5L IVF this admit and 1 unit PRBC's, all while lasix held, so likely volume overloaded for this reason.
-Improvement with IV Lasix. Patient feeling better still on O2 also with mild lower extremity edema. Continue with IV Lasix and continue to wean O2. With presentation with ALEX will need to monitor renal function and make sure we do not
overdiuresis
Bio AVR:
-stable by echo
CAD s/p CABG:
-seems stable
-continue ASA, statin, and BB
ALEX:
-resolved
-Abx switched
-IV given as noted, but now volume up
Carotid disease:
-recent L CEA
-follows with vascular surgery
Physical Exam
Vital Signs/Labs
Vital Signs
Temp Pulse Resp BP Pulse Ox
98.8 F 73 18 123/65 96
02/03/24 12:14 02/03/24 12:14 02/03/24 12:14 02/03/24 12:14 02/03/24 12:14
02/02/24 02/03/24 02/04/24
06:59 06:59 06:59
Actual Weight 85.786 kg 83.053 kg
02/03/24 06:53
02/03/24 06:53
Magnesium 1.5 mg/dl (1.6-2.3) L 02/03/24 06:53
02/02/24
06:35
Ccj-O-Icnlpwxrwbi Pept 6480
Physical Exam
Constitutional: No acute distress
EENT: Anicteric
Cardiovascular: Rhythm & rate is regular
Respiratory: Wheeze Absent and Rhonchi Absent
Other: Other (Mild lower extremity edema)
Data Reviewed
-
Date of Service: February 03, 2024
Medical Decision Making: Reviewed Test Results
X-Ray/CT/US/MRI/NUC/PET: Report Reviewed by me
Labs: Labs Reviewed by me
--- NOTE | 2024-02-03 15:00 | W.PN.PUL3 ---
Today's Communication / Plan
-
Diuresis
Atb
BD
Dispo
Reconsult prn
Assessment
-
Assessment: 63-year-old former tobacco smoker (quit 2022 - [id number] Hx) with reported Hx of COPD, suspected LANE, HTN, HLD, DM type II, severe s/p SAVR (10/2023), CAD s/p CABG (10/2023), and Hx of pleural effusions p/w frequent falls and
feeling 'out of it' since her left-CEA on 01/16/2024. Labs showed anemia to 7.6, hyponatremia to 129, ALEX to 1.9 (of note, pt was on bactrim due to UTI Dx on 01/23/2024), UA showed +2 leukocyte esterase, and urine culture was sent. 1L NS 0.9% given
in ER and pt admitted to hospitalist service. TTE was performed showing preserved LVEF at 65-70% with stage II diastolic dysfunction with increased LV filling pressures; also with severe pHTN with PASP 56mmHg. She required 2L/min which is new.
Pulmonary now consulted for additional recommendations.
Chronic conditions CHILD CARE AIDE: carotid artery stenosis s/p L-CEA (01/16/2024), former tobacco smoker, DM type II, HTN, HLD, CAD s/p CABG, severe , at risk for LANE, Hx of COPD, Hx of PNA, kidney stones, frequent ear infections, spinal stenosis, Hx of
pleural effusions
Impression:
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
#Acute HFpEF with stage II diastolic dysfunction and moderate MR
#Acute hypoxic respiratory failure on supplemental oxygen
#At risk for LANE
#UTI
#CAD s/p CABG (10/2023)
#Severe s/p SAVR (10/2023)
#Former tobacco smoker with 40-PY Hx, quit Sep 2023
#Anemia s/p 1 U PRBC on 01/31/2024 (baseline Hb 8.5-9.5)
#ALEX - now resolved, and was likely due to recent bactrim
Plan:
- Diuresis
- Trend UOP, sCr and check daily weights
- would repeat TTE as an outpatient once patient optimized and is euvolemic to re-assess severity
- Replete K>4, Mg>2 while diuresing
- Maintain SpO2 >90-94%
Currently on RA, POx 95-96%
Not on home O2
Not on outpatient BDs (given one inhaler by PCP 1 y ago, used it once only with no benefit
- Eventual outpatient HSAT/watchPAT, patient agree
- Incentive spirometer encouraged
- prn nebulized bronchodilators, d/c on albuterol HFA at 2 puffs q6hrs prn to be used till seen at [facility]
- ABx per primary team: UTI
- Maintain euglycemia with goal BG >100 and <180
- LDCT chest imaging in September 2024 - already ordered from [facility] office
- DVT ppx: HSQ
D/w Mrs Krishnan and her daughter at bedside today, all questions answered
Pulm banegas stable at this juncture
Reconsult prn
Data:
CXR 02-02-2024: Constellation of findings suggestive of mild pulmonary edema. Trace bilateral pleural effusions.
TTE 01-31-2024:
Normal left ventricular systolic function. Estimated ejection fraction is 65-
70%.
Stage II diastolic dysfunction suggestive of abnormal relaxation and increased
filling pressures.
Mild/moderate mitral regurgitation. Mild/moderate mitral stenosis. Mean
gradient 5 mmHg.
Normally functioning bioprosthetic aortic valve. Peak/mean gradients across
the aortic valve are 19/9 mmHg. No AR.
Mildly enlarged right ventricular size. Normal right ventricular systolic
function.
Moderate tricuspid regurgitation. Severely elevated PASP. Estimated pulmonary
artery pressure of 56 mmHg. Assuming a right atrial pressure of 3 mmHg.
Compared to 10/10/23: the patient has undergone interim bio-AVR. MR has
progressed from mild to mild/moderate. Mild/moderate MS is present. TR has
progressed from mild to moderate. PASP was unable to be measured on prior
study.
Subjective Data
-
Date of Service:
Date of Service: February 03, 2024
Chief Complaint: Pulmonary Follow Up
Subjective:
No major respiratory events reported
On room air, respiratory banegas comfortable, speaking full sentences
Reports clinical improvement since admission, diuresing well
No new home O2
Given 1 inhaler about year ago by her PCP, he used the device only once and felt no benefit
Review of Systems
General: Fever (n), Sweats (n), Chills (n) and Satisfactory Appetite
Cardiopulmonary: Dyspnea (n at rest on O2), Cough (n), Sputum Production (n), Wheezing (n) and Edema (mild EMY)
GI: Abdominal Pain (n), Nausea (n) and Vomiting (n)
Neuro: Weakness (n)
Objective Data
Data Reviewed
Vital Signs / I&O / Oxygen:
Vital Signs
Temp Pulse Resp BP Pulse Ox
98.8 F 73 18 123/65 96
02/03/24 12:14 02/03/24 12:14 02/03/24 12:14 02/03/24 12:14 02/03/24 12:14
Intake and Output
02/02/24 02/03/24 02/04/24
06:59 06:59 06:59
Intake Total 600 / 600 600 / 600 120 / 120
Balance 600 / 600 600 / 600 120 / 120
SaO2 96
Nasal Cannula flow liters per 2
minute
Physical Exam
General: Comfortable
HEENT: Normocephalic and Moist Mucous Membranes
Cardiovascular: Regular Rhythm, Murmur (n) and Peripheral Edema (trace pedal)
Respiratory: Crackles (trace), Non-Labored Respirations and Stridor (n)
GI: Soft, Non Distended and Non Tender
Neurology: Awake, AO x 3 and No Motor Deficits
Skin: Warm
Labs/Micro/Reports
Lab Data
02/03/24 06:53
02/03/24 06:53
Microbiology
01/30/24 19:01 Urine Urine Culture - Final
Enterococcus faecalis
[2024-02-03 15:04] VITALS: BP 148/69
[2024-02-03] MEDS: LIPITOR 20 MG PO (17:06)
[2024-02-03] MEDS: TENORMIN 25 MG PO (17:06)
[2024-02-03 19:50] VITALS: BP 125/59
[2024-02-03] MEDS: CELEXA 40 MG PO (21:19)
[2024-02-03] MEDS: VALIUM 5 MG PO (21:21)
[2024-02-03 23:54] VITALS: BP 136/54
[2024-02-04] VITALS (9 sets, daily range): BP systolic 92–156; BP diastolic 50–77; BMI 30.3
[2024-02-04] MEDS: ROXICODONE 10 MG PO ×3 (02:27→16:42)
--- NOTE | 2024-02-04 06:36 | W.PN.HOSP.TC ---
Today's Communication/Plan
-
Transfer to IVU for closer monitoring treatment Heart Failure recent hx CABG AVR
diuresis
last day of abx
wean O2 supplementation as tolerated
Pain control
PT/OT
discharge planning Home rehab as per patient
Assessment / Plan
Assessment / Plan
Physical Exam
General: Well Developed, Well Nourished and No Apparent Distress
HEENT: NormoCephalic, Moist mucous membranes and Atraumatic
Respiratory: Clear
Cardiac: S1/S2 and Regular Rhythm; No Murmur or Rub
GI: Soft, Non Tender, Non Distended and Normal Bowel Sounds; No Organomegaly
Musculoskeletal: No Clubbing, No Cyanosis and No Edema
Skin: No Rash
Neuro: Nonfocal/grossly intact
63F Chronic Back Pain Opiate Dependence Neck Fusion CAD stent valve replacement HTN HLD GERD recent Lt Carotid stenosis endarterectomy 01/15 COPD Anxiety/Depression here for evaluation orthostatic hypotension anemia, uti, new onset Acute Hypoxic
Respiratory Failure Pulmonary HTN.
# Dizziness concerning for orthostatic hypotension, possible symptomatic anemia
-Orthostatic hypotension borderline positive d/t drop in diastolic hypotension
-IV fluid supplementation
-Transfused 1PRBC for goal Hgb 8
-H&H consistently at goal since transfusion. Dizziness appears resolved at this time.
# Chronic normocytic anemia
-iron studies appreciated likely anemia of chronic disease
-Continue iron supplementation
# Lateral left foot injury, acute fx left 5th metatarsal
Foot XR appreciated as follows:
1. acute nondisplaced intra-articular fracture Lt 5th metatarsal base.
2. Possible chronic stress fractures of the left 3rd and 4th metatarsal shafts.
3. Moderate-sized calcaneal enthesophytes.
4. Moderate diffuse soft tissue swelling and subcutaneous edema in the left forefoot
Discussed with podiatry, fit with surgical shoe, weightbearing as tolerated, outpatient follow up recommended
# Possible Acute kidney injury d/t Bactrim vs benign elevation Cr d/t Bactrim
-Bactrim discontinued
-IV fluid support completed
-ALEX/Cr elevation resolved
#Hyponatremia likely due to poor p.o. intake
-received IV NS earlier in course of hospitalization
-Na level Since Improved/Stable
# Urinary tract infection secondary to Klebsiella
-Urine culture from 01/22
-Bactrim discontinued in favor of Keflex
-cont Keflex for 5 days, last day 02/03
Recent left carotid endarterectomy on 01/15 with residual improving neck swelling from post op edema
Prior right-sided carotid endarterectomy 5 years ago
-Continue aspirin, statin
CAD status post stent
Aortic stenosis status post AVR
ECHO appreciated EF 60-65% stage II diastolic dysfunction mild/mod MR MS normal function bioprosthetic aortic valve mod TR severe pulm HTN
compared to previous ECHO valve abn's progress, unable to measure PASP previous study
Acute Hypoxic respiratory Failure d/t Acute on Chronic HFpEF and possibly pulm htn as above
COPD no wheezing noted
BNP 6000s significantly elevated from prior value
wean oxygen supplementation as tolerated
IV lasix 40 mg BID started, cont
daily weights I/O
Pulm eval appreciated prn nebulized bronchodilators, when stable for discharge, d/c on albuterol HFA at 2 puffs q6hrs prn to be used till seen at [facility]
Cardio eval appreciated cont IV diuresis
Check nocturnal saturation and home Oxygen assessment in AM
Essential hypertension
-cont Atenolol with holding parameters
Hyperlipidemia
-Continue statin
GERD
-Continue Protonix
Reported hx DM
Updated A1c 6.0 prediabetic
home metformin most likely for weight loss
No need for routine FS at this time
Anxiety/depression
-Continue citalopram, diazepam
History of kidney stones
Chronic back pain/spinal stenosis
-Continue Percocet, gabapentin, Tylenol
DNR/DNI
DVT prophylaxis�heparin
Regular diet
PT/OT appreciated SNF rehab, patient however declines prefers home rehab
02/03 Transfer to IVU for closer monitoring treatment Heart Failure recent hx CABG AVR
discussed with patient at bedside and patient's daughter Christy over phone
I spent a total of 55 minutes with the patient or on the floor. More than 50% of this time involved counseling and coordination of care.
Anticipated Discharge: 24 - 48 hours
Subjective/Interval History
-
Date of Service: February 04, 2024
Seen and examined at bedside in no acute distress resting comfortably in bed. Reports poor sleep. Remains oxygen dependent.
Objective Data
-
Labs:
Laboratory Results
02/04/24
06:00
WBC Pending
Hgb Pending
Hct Pending
Plt Count Pending
Sodium Pending
Potassium Pending
Chloride Pending
Carbon Dioxide Pending
BUN Pending
Creatinine Pending
Glucose Pending
Calcium Pending
Vital Signs:
Vital Signs
Temp Pulse Resp BP Pulse Ox
98.4 F 59 18 130/67 95
02/04/24 03:08 02/04/24 03:08 02/04/24 03:08 02/04/24 03:08 02/04/24 03:08
I&O
02/02/24 02/03/24 02/04/24
06:59 06:59 06:59
Intake Total 600 / 600 600 / 600 1270 / 1270
Balance 600 / 600 600 / 600 1270 / 1270
[2024-02-04 07:46] LABS: Hematocrit 29.1 % (37.0-47.0); Mean Corp Hgb Conc. 30.9 g/dL (33.0-37.0); Mean Corpuscular Hgb 28.9 pg (27.0-31.0); Mean Corpuscular Volume 93.6 fL (81.0-99.0); Mean Platelet Volume 8.9 fL (7.4-10.4); Platelet Count 252 10^3/uL (130-400); Red Blood Cell Count 3.11 10^6/uL (4.20-5.40); Red Cell Dist. Width 15.8 % (11.5-14.5); White Blood Cell Count 5.7 10^3/uL (4.8-10.8)
[2024-02-04 08:07] LABS: Blood Urea Nitrogen 12 mg/dl (7-17); Calcium 9.1 mg/dl (8.4-10.2); Carbon Dioxide 32 mmol/L (22-30); Chloride 101 mmol/L (98-107); Estimated Creatinine Clearance 96 ml/min; Glucose 115 mg/dl (70-99); Magnesium 1.7 mg/dl (1.6-2.3); Phosphorus 4.4 mg/dl (2.5-4.5); Potassium 4.3 mmol/L (3.5-5.1); Sodium 135 mmol/L (135-145); eGFR > 60.00
[2024-02-04] MEDS: LASIX 40 MG IV ×2 (08:38→16:18)
[2024-02-04] MEDS: FEOSOL 325 MG PO (08:38)
[2024-02-04] MEDS: KEFLEX 500 MG PO ×4 (08:38→22:24)
[2024-02-04] MEDS: ASPIR LOW (ENTERIC COATED) 81 MG PO (08:38)
[2024-02-04] MEDS: NEURONTIN 600 MG PO ×3 (08:38→22:24)
[2024-02-04] MEDS: PROTONIX 40 MG PO (08:38)
[2024-02-04] MEDS: HEPARIN 5000 UNITS SC ×2 (08:39→20:04)
[2024-02-04] MEDS: MAGNESIUM SULFATE 50 IV (10:44)
[2024-02-04] MEDS: DILAUDID 0.25 MG IV ×2 (11:10→20:15)
--- NOTE | 2024-02-04 12:58 | W.PN.CD ---
Today's Communication / Plan
-
Improvement with IV Lasix. Patient feeling better still on O2. also with minimal lower extremity edema. Continue with IV Lasix and continue to wean O2. With presentation with ALEX will need to monitor renal function and make sure we do not
overdiuresis
continue efforts to wean O2. When on room air then transition to oral diuretic. Also monitor Creatinine
Impression / Plan
-
Weakness/falls:
-s/p fluid, blood
-UTI being treated
-ALEX resolved
-PT/OT following
Hqxhg-jt-syelvdr HFpEF:
-echo as noted below
-CXR, BNP, weight all c/w excess volume. Notably, patient received 5L IVF this admit and 1 unit PRBC's, all while lasix held, so likely volume overloaded for this reason.
-Improvement with IV Lasix. Patient feeling better still on O2 also with minimal ower extremity edema. Continue with IV Lasix and continue to wean O2. With presentation with ALEX will need to monitor renal function and make sure we do not
overdiuresis
Bio AVR:
-stable by echo
CAD s/p CABG:
-seems stable
-continue ASA, statin, and BB
ALEX:
-resolved
-Abx switched
-IV given as noted, but now volume up
Carotid disease:
-recent L CEA
-follows with vascular surgery
Physical Exam
Vital Signs/Labs
Vital Signs
Temp Pulse Resp BP Pulse Ox
98.0 F 60 16 116/50 98
02/04/24 11:50 02/04/24 11:50 02/04/24 11:50 02/04/24 11:50 02/04/24 11:50
02/03/24 02/04/24 02/05/24
06:59 06:59 06:59
Actual Weight 83.053 kg 79.917 kg
02/04/24 06:52
02/04/24 06:52
Magnesium 1.7 mg/dl (1.6-2.3) 02/04/24 06:52
02/02/24
06:35
Kay-O-Rjhfjdrnidw Pept 6480
Physical Exam
Constitutional: No acute distress
Cardiovascular: Rhythm & rate is regular
Respiratory: Wheeze Absent and Rhonchi Absent
GI: Soft
Other: Other (minimal edea. )
Data Reviewed
-
Date of Service: February 04, 2024
Labs: Labs Reviewed by me
--- NOTE | 2024-02-04 13:03 | PTCARENOTE ---
Patient transferred to IVU as per order. Report given to Bacilio KAUR.
--- NOTE | 2024-02-04 15:11 | PTCARENOTE ---
Patient received as transfer from at 1310. Patient appears comfortable, denies pain although states she does have chronic back pain at baseline. Fully alert and oriented. Afebrile on arrival. NSR rate 60s. 3LNC with O2 sat 97%. Lung sounds clear.
Denies shortness of breath. Ambulates with assistance x1. Pt is a fall risk due to history of falls at home. Pt has Cam boot on left foot while ambulating. GI/ benign.
[2024-02-04] MEDS: TYLENOL 325 MG PO (16:45)
[2024-02-04] MEDS: TENORMIN 25 MG PO (18:15)
[2024-02-04] MEDS: LIPITOR 20 MG PO (18:15)
[2024-02-04] MEDS: CELEXA 40 MG PO (22:24)
--- NOTE | 2024-02-04 22:38 | PTCARENOTE ---
Pt rec'd at beginning of shift awake,alert requesting IV Dilaudid for sciatica pain along right leg and buttocks. Pt also c/o O2 tubing irritating her. O2 removed sat 97% on O2. Respiratory on unit for overnight continuos pulse ox. pts sat on r/a
80's, o2 then placed at 2 lit n/c. Order for Colace obtained from house HOMEWORKER after pt stated her bm this evening was hard.
[2024-02-05] VITALS (12 sets, daily range): BP systolic 90–128; BP diastolic 48–78; PULSE 61; O2SAT 87–96; BMI 29.8
[2024-02-05] MEDS: VALIUM PO ×2 (00:26→22:42)
[2024-02-05 05:28] LABS: Hematocrit 32.1 % (37.0-47.0); Hemoglobin 10.2 g/dL (12.0-16.0); Mean Corp Hgb Conc. 31.8 g/dL (33.0-37.0); Mean Corpuscular Hgb 29.1 pg (27.0-31.0); Mean Corpuscular Volume 91.7 fL (81.0-99.0); Mean Platelet Volume 8.6 fL (7.4-10.4); Platelet Count 277 10^3/uL (130-400); Red Cell Dist. Width 15.8 % (11.5-14.5); White Blood Cell Count 6.6 10^3/uL (4.8-10.8)
[2024-02-05 06:02] LABS: Blood Urea Nitrogen 16 mg/dl (7-17); Calcium 9.8 mg/dl (8.4-10.2); Carbon Dioxide 31 mmol/L (22-30); Chloride 97 mmol/L (98-107); Estimated Creatinine Clearance 95 ml/min; Glucose 129 mg/dl (70-99); Magnesium 1.9 mg/dl (1.6-2.3); Potassium 4.6 mmol/L (3.5-5.1); Sodium 135 mmol/L (135-145); eGFR > 60.00
[2024-02-05] MEDS: ROXICODONE 10 MG PO ×3 (07:28→22:11)
[2024-02-05] MEDS: TYLENOL 325 MG PO ×2 (07:33→14:45)
[2024-02-05] MEDS: LASIX 40 MG IV ×2 (07:37→16:08)
--- NOTE | 2024-02-05 08:34 | W.PN.HOSP.TC ---
Today's Communication/Plan
-
see bold
Assessment / Plan
Assessment / Plan
63F Chronic Back Pain Opiate Dependence Neck Fusion CAD stent valve replacement HTN HLD GERD recent Lt Carotid stenosis endarterectomy 01/15 COPD Anxiety/Depression here for evaluation orthostatic hypotension anemia, uti, new onset Acute Hypoxic
Respiratory Failure Pulmonary HTN.
#Acute Hypoxic respiratory Insufficiency d/t Acute on Chronic HFpEF and possibly pulm htn
COPD no wheezing noted
BNP 6000s significantly elevated from prior value
Currently requiring 2 L of oxygen, wean as tolerated
Appreciate cardiology input, continue IV Lasix for now, likely can transition to oral Lasix tomorrow
Appreciate pulmonology input, continue bronchodilators as needed
When stable for discharge, d/c on albuterol HFA at 2 puffs q6hrs prn to be used till seen at [facility]
PT rec SNF, pt declines, would like home PT
# Dizziness concerning for orthostatic hypotension, possible symptomatic anemia
Orthostatic hypotension borderline positive d/t drop in diastolic hypotension
Hemoglobin continues to improve status post 1 unit of packed red blood cells on 01/30
Hemoglobin stable 10.2 today, dizziness resolved
# Chronic normocytic anemia of chronic disease
Iron studies appreciated likely anemia of chronic disease
Continue iron supplementation, monitor hemoglobin
# Lateral left foot injury, acute fx left 5th metatarsal
Foot XR appreciated as follows:
1. acute nondisplaced intra-articular fracture Lt 5th metatarsal base.
2. Possible chronic stress fractures of the left 3rd and 4th metatarsal shafts.
3. Moderate-sized calcaneal enthesophytes.
4. Moderate diffuse soft tissue swelling and subcutaneous edema in the left forefoot
Discussed with podiatry, fit with surgical shoe, weightbearing as tolerated, outpatient follow up recommended
#Constipation
Start MiraLAX twice a day, sennosides twice a day, continue Colace
# Possible Acute kidney injury d/t Bactrim vs benign elevation Cr d/t Bactrim
Off Bactrim, status post IV fluids
Resolved, creatinine normal, was 1.9 upon admission
#Hyponatremia likely due to poor p.o. intake
Improved status post IV fluids
# Urinary tract infection secondary to Klebsiella
Urine culture from 01/22. Bactrim discontinued in favor of Keflex
Completed full course of Keflex
#Recent left carotid endarterectomy on 01/15 with residual improving neck swelling from post op edema
Prior right-sided carotid endarterectomy 5 years ago
-Continue aspirin, statin
CAD status post stent
Aortic stenosis status post AVR
ECHO appreciated EF 60-65% stage II diastolic dysfunction mild/mod MR MS normal function bioprosthetic aortic valve mod TR severe pulm HTN
compared to previous ECHO valve abn's progress, unable to measure PASP previous study
Essential hypertension
-cont Atenolol with holding parameters
Hyperlipidemia
-Continue statin
GERD
-Continue Protonix
History of type 2 diabetes, now prediabetic with hemoglobin A1c of 6.0
-Updated A1c 6.0 prediabetic, home metformin most likely for weight loss
-No need for routine FS at this time
Anxiety/depression
-Continue citalopram, diazepam
History of kidney stones
Chronic back pain/spinal stenosis
-Continue Percocet, gabapentin, Tylenol
DVT prophylaxis�subcu Lovenox
Full Code
Total time spent to see the patient on the floor, examine the patient, review data and lab results, discuss treatment plan with patient, nursing staff around 51 minutes.
Physical Exam
General: Well Developed, Well Nourished and No Apparent Distress
HEENT: NormoCephalic, Moist mucous membranes and Atraumatic
Respiratory: Clear
Cardiac: S1/S2 and Regular Rhythm; No Murmur or Rub
GI: Soft, Non Tender, Non Distended and Normal Bowel Sounds; No Organomegaly
Musculoskeletal: No Clubbing, No Cyanosis and No Edema
Skin: No Rash
Neuro: Nonfocal/grossly intact
Anticipated Discharge: 24 - 48 hours
Subjective/Interval History
-
Date of Service: February 05, 2024
Patient denies shortness of breath. She feels better. No chest pain, no vomiting. No fever. Complains of constipation.
Objective Data
-
Labs:
Laboratory Results
02/05/24
05:14
WBC 6.6
Hgb 10.2 L
Hct 32.1 L
Plt Count 277
Sodium 135
Potassium 4.6
Chloride 97 L
Carbon Dioxide 31 H
BUN 16
Creatinine 0.6
Glucose 129 H
Calcium 9.8
Vital Signs:
Vital Signs
Temp Pulse Resp BP Pulse Ox
98.6 F 61 20 122/58 95
02/05/24 07:27 02/05/24 07:37 02/05/24 07:27 02/05/24 07:37 02/05/24 07:27
I&O
02/04/24 02/05/24 02/06/24
06:59 06:59 06:59
Intake Total 1510 / 1510
Balance 1510 / 1510
--- NOTE | 2024-02-05 08:47 | W.PN.CD ---
Addendum entered and electronically signed by Yifan Hernández MD 02/05/24 10:17:
I saw and examined the patient.
The DIAMOND SORTER's note was reviewed and I agree with the note.
Comment: She is feeling much better. Breathing is improved. No CP or pressure. On exam JVP difficult to assess due to body habitus, lungs cta. no le edema. RRR soft systolic murmur. Improving with diuresis, will reassess in the am for transition
to po lasix.
Original Note:
Today's Communication / Plan
-
-continue IV Lasix today, likely transition to PO tomorrow
-attempt O2 wean today as able
Impression / Plan
-
Weakness/falls: improved
-s/p fluid, blood
-UTI treated with antibiotics
-ALEX resolved
-PT/OT following
Jruig-ia-wbqxjyb HFpEF:
-Echo 01/31/24: EF 65-70%. Stage II DD, Mild/moderate mitral regurgitation. Mild/moderate MS. MG 5 mmHg. Normally functioning bioprosthetic aortic valve. Peak/mean gradients 19/9 mmHg. No AR. Mildly enlarged right ventricular size with normal
function. Moderate TR. Severely elevated PASP. PAP of 56 mm (done when patient volume overloaded).
-volume overload this admit was in setting of patient having received 5L IVF this admit and 1 unit PRBC's, all while lasix held
-improving with IV Lasix. She is still on O2 by [place]. Wean as tolerated. Her weight is down- currently 173.4. She thinks dry weight could be around 170 lbs. Would continue IV diuresis today, likely transition to PO tomorrow.
Bio AVR:
-stable by echo
CAD s/p CABG:
-stable
-continue ASA, statin, and BB
ALEX:
-resolved
-Abx switched
-IV given as noted, but now volume up
Carotid disease:
-recent L CEA
-follows with vascular surgery
Physical Exam
Vital Signs/Labs
Vital Signs
Temp Pulse Resp BP Pulse Ox
98.6 F 61 20 122/58 95
02/05/24 07:27 02/05/24 07:37 02/05/24 07:27 02/05/24 07:37 02/05/24 07:27
02/04/24 02/05/24 02/06/24
06:59 06:59 06:59
Actual Weight 79.917 kg 78.8 kg
02/05/24 05:14
02/05/24 05:14
Magnesium 1.9 mg/dl (1.6-2.3) 02/05/24 05:14
02/02/24
06:35
[id number] Pept 6480
Physical Exam
Constitutional: No acute distress
EENT: Anicteric
Cardiovascular: Rhythm & rate is regular and Pedal edema is absent
Respiratory: Respiratory effort normal, Crackles Present (b/l bases) and Other (on O2 by NC)
GI: Soft, Non tender and Normal bowel sounds
Neuro/Psych: AO x 3
Other: Skin (warm and dry)
Data Reviewed
-
Date of Service: February 05, 2024
EKG: Other (tele SR)
Labs: Labs Reviewed by me
[2024-02-05] MEDS: NEURONTIN 600 MG PO ×3 (09:01→22:12)
[2024-02-05] MEDS: PROTONIX 40 MG PO (09:01)
[2024-02-05] MEDS: FEOSOL 325 MG PO (09:01)
[2024-02-05] MEDS: ASPIR LOW (ENTERIC COATED) 81 MG PO (09:01)
[2024-02-05] MEDS: HEPARIN 5000 UNITS SC ×2 (09:02→20:34)
[2024-02-05] MEDS: SENOKOT 17.1999999999999993 MG PO ×2 (10:46→20:34)
[2024-02-05] MEDS: MIRALAX 17 GRAMS PO ×2 (10:46→20:34)
--- NOTE | 2024-02-05 13:15 | CM ---
Chart reviewed. Patient is independent of ADLS, lives with her daughter in a 1 STH, ambulates with a rolling walker. Patient does not want to go to SNF, she would prefer to go home. PT evaluation recommending VN. Referral sent to [facility]. Plan
is for the patient to go home with [facility]. CM to follow
[2024-02-05] MEDS: LIPITOR 20 MG PO (17:25)
[2024-02-05] MEDS: TENORMIN 25 MG PO (17:26)
[2024-02-05] MEDS: CELEXA 40 MG PO (22:12)
--- NOTE | 2024-02-05 22:42 | PTCARENOTE ---
Pt with c/o pain in neck and b/l lower back. Medicated with Roxicodone at HS. Pt refused Valium at this time preferred to take pain med at HS.
[2024-02-06] VITALS (11 sets, daily range): BP systolic 89–124; BP diastolic 47–66; PULSE 71; O2SAT 96; BMI 29.9
[2024-02-06] MEDS: ROXICODONE 10 MG PO ×4 (02:44→22:41)
[2024-02-06 02:45] LABS: Hematocrit 30.8 % (37.0-47.0); Hemoglobin 10.1 g/dL (12.0-16.0); Mean Corp Hgb Conc. 32.8 g/dL (33.0-37.0); Mean Corpuscular Volume 88.5 fL (81.0-99.0); Mean Platelet Volume 8.5 fL (7.4-10.4); Platelet Count 230 10^3/uL (130-400); Red Blood Cell Count 3.48 10^6/uL (4.20-5.40); Red Cell Dist. Width 15.5 % (11.5-14.5); White Blood Cell Count 7.4 10^3/uL (4.8-10.8)
[2024-02-06 02:59] LABS: Blood Urea Nitrogen 25 mg/dl (7-17); Calcium 9.6 mg/dl (8.4-10.2); Carbon Dioxide 28 mmol/L (22-30); Chloride 97 mmol/L (98-107); Estimated Creatinine Clearance 81 ml/min; Glucose 133 mg/dl (70-99); Phosphorus 5.1 mg/dl (2.5-4.5); Potassium 4.9 mmol/L (3.5-5.1); Sodium 135 mmol/L (135-145); eGFR > 60.00
[2024-02-06] MEDS: FEOSOL 325 MG PO (07:48)
[2024-02-06] MEDS: ASPIR LOW (ENTERIC COATED) 81 MG PO (07:48)
[2024-02-06] MEDS: SENOKOT 17.1999999999999993 MG PO (07:48)
[2024-02-06] MEDS: NEURONTIN 600 MG PO ×3 (07:48→22:40)
[2024-02-06] MEDS: PROTONIX 40 MG PO (07:48)
[2024-02-06] MEDS: MIRALAX 17 GRAMS PO (07:48)
[2024-02-06] MEDS: HEPARIN 5000 UNITS SC ×2 (07:49→19:29)
--- NOTE | 2024-02-06 08:34 | W.PN.HOSP.TC ---
Today's Communication/Plan
-
Dulcolax suppository
Continue MiraLAX and sennosides
Increased IV Lasix as per cardiology
Assessment / Plan
Assessment / Plan
63F Chronic Back Pain Opiate Dependence Neck Fusion CAD stent valve replacement HTN HLD GERD recent Lt Carotid stenosis endarterectomy 01/15 COPD Anxiety/Depression here for evaluation orthostatic hypotension anemia, uti, new onset Acute Hypoxic
Respiratory Failure Pulmonary HTN.
#Acute Hypoxic respiratory Insufficiency d/t Acute on Chronic HFpEF and possibly pulm htn
COPD no wheezing noted
BNP 6000s significantly elevated from prior value
Currently requiring 2 L of oxygen, wean as tolerated
Appreciate cardiology input, IV Lasix increased to 80 mg twice daily
Appreciate pulmonology input, continue bronchodilators as needed
When stable for discharge, d/c on albuterol HFA at 2 puffs q6hrs prn to be used till seen at [facility]
PT rec SNF, pt declines, would like home PT
# Dizziness concerning for orthostatic hypotension, possible symptomatic anemia
Orthostatic hypotension borderline positive d/t drop in diastolic hypotension
Hemoglobin continues to improve status post 1 unit of packed red blood cells on 01/30
Hemoglobin stable 10.1 today, dizziness resolved
# Chronic normocytic anemia of chronic disease
Iron studies appreciated likely anemia of chronic disease
Continue iron supplementation, monitor hemoglobin
# Lateral left foot injury, acute fx left 5th metatarsal
Foot XR appreciated as follows:
1. acute nondisplaced intra-articular fracture Lt 5th metatarsal base.
2. Possible chronic stress fractures of the left 3rd and 4th metatarsal shafts.
3. Moderate-sized calcaneal enthesophytes.
4. Moderate diffuse soft tissue swelling and subcutaneous edema in the left forefoot
Discussed with podiatry, fit with surgical shoe, weightbearing as tolerated, outpatient follow up recommended
#Constipation
Dulcolax suppository now
Continue MiraLAX twice a day, sennosides twice a day, continue Colace
# Possible Acute kidney injury d/t Bactrim vs benign elevation Cr d/t Bactrim
Off Bactrim, status post IV fluids
Resolved, creatinine normal, was 1.9 upon admission
#Hyponatremia likely due to poor p.o. intake
Improved status post IV fluids
# Urinary tract infection secondary to Klebsiella
Urine culture from 01/22. Bactrim discontinued in favor of Keflex
Completed full course of Keflex
#Recent left carotid endarterectomy on 01/15 with residual improving neck swelling from post op edema
Prior right-sided carotid endarterectomy 5 years ago
-Continue aspirin, statin
CAD status post stent
Aortic stenosis status post AVR
ECHO appreciated EF 60-65% stage II diastolic dysfunction mild/mod MR MS normal function bioprosthetic aortic valve mod TR severe pulm HTN
compared to previous ECHO valve abn's progress, unable to measure PASP previous study
Essential hypertension
-cont Atenolol with holding parameters
Hyperlipidemia
-Continue statin
GERD
-Continue Protonix
History of type 2 diabetes, now prediabetic with hemoglobin A1c of 6.0
-Updated A1c 6.0 prediabetic, home metformin most likely for weight loss
-No need for routine FS at this time
Anxiety/depression
-Continue citalopram, diazepam
History of kidney stones
Chronic back pain/spinal stenosis
-Continue Percocet, gabapentin, Tylenol
DVT prophylaxis�subcu Lovenox
Full Code
Physical Exam
General: Well Developed, Well Nourished and No Apparent Distress
HEENT: NormoCephalic, Moist mucous membranes and Atraumatic
Respiratory: Clear
Cardiac: S1/S2 and Regular Rhythm; No Murmur or Rub
GI: Soft, Non Tender, Non Distended and Normal Bowel Sounds; No Organomegaly
Musculoskeletal: No Clubbing, No Cyanosis and No Edema
Skin: No Rash
Neuro: Nonfocal/grossly intact
Anticipated Discharge: 24 - 48 hours
Subjective/Interval History
-
Date of Service: February 06, 2024
Patient continues to have constipation. She did not put out much urine yesterday with the IV Lasix. No fever, no vomiting.
Objective Data
-
Labs:
Laboratory Results
02/06/24
02:38
WBC 7.4
Hgb 10.1 L
Hct 30.8 L
Plt Count 230
Sodium 135
Potassium 4.9
Chloride 97 L
Carbon Dioxide 28
BUN 25 H
Creatinine 0.7
Glucose 133 H
Calcium 9.6
Vital Signs:
Vital Signs
Temp Pulse Resp BP Pulse Ox
97.4 F 62 16 102/53 96
02/06/24 07:23 02/06/24 07:24 02/06/24 07:23 02/06/24 07:24 02/06/24 07:24
I&O
02/05/24 02/06/24 02/07/24
06:59 06:59 06:59
Intake Total 480 / 480
Balance 480 / 480
--- NOTE | 2024-02-06 09:08 | W.PN.CD ---
Today's Communication / Plan
-
increase lasix to 80IV bid
monitor lytes
continue to try to wean oxygen
Impression / Plan
-
Weakness/falls: improved
-s/p fluid, blood
-UTI treated with antibiotics
-ALEX resolved
-PT/OT following
Fbnkq-le-tqnmkix HFpEF:
-Echo 01/31/24: EF 65-70%. Stage II DD, Mild/moderate mitral regurgitation. Mild/moderate MS. MG 5 mmHg. Normally functioning bioprosthetic aortic valve. Peak/mean gradients 19/9 mmHg. No AR. Mildly enlarged right ventricular size with normal
function. Moderate TR. Severely elevated PASP. PAP of 56 mm (done when patient volume overloaded).
-volume overload this admit was in setting of patient having received 5L IVF this admit and 1 unit PRBC's, all while lasix held
-improving with IV Lasix. But no good response yesterday, weight stable. She is still on O2 by [place]. Wean as tolerated. Her weight is down- currently ~174. She thinks dry weight could be around 170 lbs. Would continue IV diuresis today buit increase
the dose to 80 IV bid, likely transition to PO tomorrow.
-this will require intensive monitoring of labs
Bio AVR:
-stable by echo
CAD s/p CABG:
-stable
-continue ASA, statin, and BB
ALEX:
-resolved
-Abx switched
-IV given as noted, but now volume up
Carotid disease:
-recent L CEA
-follows with vascular surgery
Subjective;
she didn't really urinate a lot yesterday, still requiring oxygen after attempt to wean. She wants to go home and not to rehab
Physical Exam
Vital Signs/Labs
Vital Signs
Temp Pulse Resp BP Pulse Ox
97.4 F 62 16 102/53 96
02/06/24 07:23 02/06/24 07:24 02/06/24 07:23 02/06/24 07:24 02/06/24 07:24
02/05/24 02/06/24 02/07/24
06:59 06:59 06:59
Actual Weight 78.8 kg 78.9 kg
02/06/24 02:38
02/06/24 02:38
Magnesium 2.0 mg/dl (1.6-2.3) 02/06/24 02:38
02/02/24
06:35
Muq-B-Xprcdonzkrm Pept 6480
Physical Exam
Constitutional: No acute distress
Cardiovascular: Rhythm & rate is regular, Pedal edema present (trace b/l) and S1S2 is normal
Respiratory: Respiratory effort normal, Lungs clear to auscul., Wheeze Absent, Crackles Absent and Rhonchi Absent
Data Reviewed
-
Date of Service: February 06, 2024
X-Ray/CT/US/MRI/NUC/PET: Discussed with Physician (bump up lasix dose to 80 mg IV bid) and Discussed with Nurse (she needed oxygen even at rest still. )
[2024-02-06] MEDS: LASIX IV (09:41)
[2024-02-06] MEDS: LASIX 80 MG IV ×2 (10:07→16:53)
--- NOTE | 2024-02-06 11:47 | CM ---
Chart reviewed. Patient is independent of ADLS, lives with her daughter in a 1 S[address], ambulates with a rolling walker. Patient with supportive daughters to help assist when she is medically ready for discharge. Referral sent to [facility]. Plan is
for the patient to return home with [facility] CM to follow
--- NOTE | 2024-02-06 16:08 | PTCARENOTE ---
AOx3, complains of pain throughout the shift. Given PRN medication as ordered. Attempted to wean to RA, desat down to 85-88% while resting in bed. Remains of 1L O2. Call abernathy within reach.
[2024-02-06] MEDS: LIPITOR 20 MG PO (19:04)
[2024-02-06] MEDS: TENORMIN PO (19:05)
[2024-02-06] MEDS: SENOKOT PO (19:29)
[2024-02-06] MEDS: MIRALAX PO (19:29)
--- NOTE | 2024-02-06 21:09 | PTCARENOTE ---
AOx3 and pleasant. Tele- SR 60s. Assessment noted as documented. Pt sating at 93% on 1L O2 [place]. Amb in room w/ rolling walker and standby assist; steady gait. Offers no c/o at this time. Currently in bed; call josemanuel w/in reach.
[2024-02-06] MEDS: CELEXA 40 MG PO (22:41)
[2024-02-06] MEDS: TYLENOL 325 MG PO (22:41)
[2024-02-06] MEDS: VALIUM PO (22:44)
--- NOTE | 2024-02-06 23:03 | PTCARENOTE ---
Educated pt at beginning of shift to use call abernathy if needed to get up OOB. On arrival pt found sitting on toilet in the dark w/ urine all over the floor. On assessment pt AOx3. Pt says, 'she does not remember getting in the bathroom... glad she
remembered to use her walker. Reports, 'I must have been sleep walking which I sometimes do.' Pt placed on bed alarm d/t fall risk. Pt apologized for not using call abernathy for assistance. Provided PM hygiene. Currently in bed; call abernathy w/in reach.
Bed alarm activated.
[2024-02-07 04:23] VITALS: BP 132/63
[2024-02-07 04:41] VITALS: BMI 29.2
[2024-02-07 04:48] LABS: Hematocrit 31.6 % (37.0-47.0); Hemoglobin 9.9 g/dL (12.0-16.0); Mean Corp Hgb Conc. 31.3 g/dL (33.0-37.0); Mean Corpuscular Hgb 28.6 pg (27.0-31.0); Mean Corpuscular Volume 91.3 fL (81.0-99.0); Mean Platelet Volume 8.6 fL (7.4-10.4); Platelet Count 234 10^3/uL (130-400); Red Blood Cell Count 3.46 10^6/uL (4.20-5.40); Red Cell Dist. Width 15.3 % (11.5-14.5); White Blood Cell Count 6.1 10^3/uL (4.8-10.8)
[2024-02-07 05:16] LABS: Blood Urea Nitrogen 25 mg/dl (7-17); Calcium 9.4 mg/dl (8.4-10.2); Carbon Dioxide 30 mmol/L (22-30); Chloride 97 mmol/L (98-107); Estimated Creatinine Clearance 81 ml/min; Glucose 110 mg/dl (70-99); Magnesium 2.1 mg/dl (1.6-2.3); Phosphorus 4.4 mg/dl (2.5-4.5); Potassium 4.3 mmol/L (3.5-5.1); Sodium 135 mmol/L (135-145); eGFR > 60.00
[2024-02-07 07:06] VITALS: BP 121/65
[2024-02-07] MEDS: PROTONIX 40 MG PO (08:14)
[2024-02-07] MEDS: NEURONTIN 600 MG PO (08:15)
[2024-02-07] MEDS: SENOKOT 17.1999999999999993 MG PO (08:16)
[2024-02-07] MEDS: ASPIR LOW (ENTERIC COATED) 81 MG PO (08:16)
[2024-02-07] MEDS: FEOSOL 325 MG PO (08:16)
[2024-02-07] MEDS: HEPARIN 5000 UNITS SC (08:17)
[2024-02-07] MEDS: LASIX 80 MG IV (08:18)
[2024-02-07] MEDS: ROXICODONE 10 MG PO (08:22)
[2024-02-07] MEDS: MIRALAX PO (08:23)
--- NOTE | 2024-02-07 08:35 | W.PN.HOSP.TC ---
Today's Communication/Plan
-
Cleared by cardiology for discharge today
Assessment / Plan
Assessment / Plan
63F Chronic Back Pain Opiate Dependence Neck Fusion CAD stent valve replacement HTN HLD GERD recent Lt Carotid stenosis endarterectomy 01/15 COPD Anxiety/Depression here for evaluation orthostatic hypotension anemia, uti, new onset Acute Hypoxic
Respiratory Failure Pulmonary HTN.
#Acute Hypoxic respiratory Insufficiency d/t Acute on Chronic HFpEF and possibly pulm htn
COPD no wheezing noted
BNP 6000s significantly elevated from prior value
Currently on room air, was requiring 2 L of oxygen
Appreciate cardiology input, resolving on IV Lasix
Appreciate pulmonology input, continue bronchodilators as needed
When stable for discharge, d/c on albuterol HFA at 2 puffs q6hrs prn to be used till seen at [facility]
PT rec SNF, pt declines, would like home PT
Medically stable and cleared by cardiology for discharge, recommend her taking Lasix 80 mg daily, increased from her previous home dose of 40 mg daily
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
# Dizziness concerning for orthostatic hypotension, possible symptomatic anemia
Orthostatic hypotension borderline positive d/t drop in diastolic hypotension
Hemoglobin continues to improve status post 1 unit of packed red blood cells on 01/30
Hemoglobin stable 9.9 today, dizziness resolved
# Chronic normocytic anemia of chronic disease
Iron studies appreciated likely anemia of chronic disease
Continue iron supplementation, monitor hemoglobin
# Lateral left foot injury, acute fx left 5th metatarsal
Foot XR appreciated as follows:
1. acute nondisplaced intra-articular fracture Lt 5th metatarsal base.
2. Possible chronic stress fractures of the left 3rd and 4th metatarsal shafts.
3. Moderate-sized calcaneal enthesophytes.
4. Moderate diffuse soft tissue swelling and subcutaneous edema in the left forefoot
Discussed with podiatry, fit with surgical shoe, weightbearing as tolerated, outpatient follow up recommended
Follow-up with podiatry in the office in 4-6 weeks
#Constipation
Resolved with aggressive bowel regimen
Can continue MiraLAX daily upon discharge
# Possible Acute kidney injury d/t Bactrim vs benign elevation Cr d/t Bactrim
Off Bactrim, status post IV fluids
Resolved, creatinine normal, was 1.9 upon admission
#Hyponatremia likely due to poor p.o. intake
Improved status post IV fluids
# Urinary tract infection secondary to Klebsiella
Urine culture from 01/22. Bactrim discontinued in favor of Keflex
Completed full course of Keflex
#Recent left carotid endarterectomy on 01/15 with residual improving neck swelling from post op edema
Prior right-sided carotid endarterectomy 5 years ago
-Continue aspirin, statin
CAD status post stent
Aortic stenosis status post AVR
ECHO appreciated EF 60-65% stage II diastolic dysfunction mild/mod MR MS normal function bioprosthetic aortic valve mod TR severe pulm HTN
compared to previous ECHO valve abn's progress, unable to measure PASP previous study
Essential hypertension
-cont Atenolol with holding parameters
Hyperlipidemia
-Continue statin
GERD
-Continue Protonix
History of type 2 diabetes, now prediabetic with hemoglobin A1c of 6.0
-Updated A1c 6.0 prediabetic, home metformin most likely for weight loss
-No need for routine FS at this time
Anxiety/depression
-Continue citalopram, diazepam
History of kidney stones
Chronic back pain/spinal stenosis
-Continue Percocet, gabapentin, Tylenol
DVT prophylaxis�subcu Lovenox
Full Code
Physical Exam
General: Well Developed, Well Nourished and No Apparent Distress
HEENT: NormoCephalic, Moist mucous membranes and Atraumatic
Respiratory: Clear
Cardiac: S1/S2 and Regular Rhythm; No Murmur or Rub
GI: Soft, Non Tender, Non Distended and Normal Bowel Sounds; No Organomegaly
Musculoskeletal: No Clubbing, No Cyanosis and No Edema
Skin: No Rash
Neuro: Nonfocal/grossly intact
Anticipated Discharge: Today
Subjective/Interval History
-
Date of Service: February 07, 2024
Patient feels much better. She has had multiple bowel movements. No chest pain, no shortness of breath. No fever, no vomiting.
Objective Data
-
Labs:
Laboratory Results
02/07/24 02/07/24
04:36 04:37
WBC 6.1
Hgb 9.9 L
Hct 31.6 L
Plt Count 234
Sodium 135
Potassium 4.3
Chloride 97 L
Carbon Dioxide 30
BUN 25 H
Creatinine 0.7
Glucose 110 H
Calcium 9.4
Vital Signs:
Vital Signs
Temp Pulse Resp BP Pulse Ox
97.8 F 71 16 132/63 95
02/07/24 07:00 02/07/24 07:00 02/07/24 07:00 02/07/24 04:23 02/07/24 07:00
I&O
02/06/24 02/07/24 02/08/24
06:59 06:59 06:59
Intake Total 240 / 240
Balance 240 / 240
[2024-02-07 09:34] VITALS: BP 126/87
[2024-02-07 09:55] VITALS: BP 126/87; PULSE 93; O2SAT 98
--- NOTE | 2024-02-07 10:53 | W.PN.CD ---
Today's Communication / Plan
-
-Patient has diuresed well with IV Lasix (lost 10 kg); will transition to 80 mg daily, which should be her new home dose.
-Continue other cardiac medications.
-Can follow-up with her primary [employer] (Dr. Barroso) as an outpatient.
Impression / Plan
-
Weakness/falls: improved
-s/p fluid, blood
-UTI treated with antibiotics
-ALEX resolved
-PT/OT following
Qjgcv-hi-seirrde HFpEF:
-Echo 01/31/24: EF 65-70%. Stage II DD, Mild/moderate mitral regurgitation. Mild/moderate MS. MG 5 mmHg. Normally functioning bioprosthetic aortic valve. Peak/mean gradients 19/9 mmHg. No AR. Mildly enlarged right ventricular size with normal
function. Moderate TR. Severely elevated PASP. PAP of 56 mm (done when patient volume overloaded).
-volume overload this admit was in setting of patient having received 5L IVF this admit and 1 unit PRBC's, all while lasix held
-Patient has diuresed well with IV Lasix (lost 10 kg); will transition to 80 mg daily, which should be her new home dose.
Bio AVR:
-stable by echo
CAD s/p CABG:
-stable
-continue ASA, statin, and BB
ALEX:
-resolved
-Abx switched
-IV given as noted, but now volume up
Carotid disease:
-recent L CEA
-follows with vascular surgery
Subjective;
No major events overnight. No cardiac complaints this a.m.
Physical Exam
Vital Signs/Labs
Vital Signs
Temp Pulse Resp BP Pulse Ox
97.8 F 76 16 126/87 98
02/07/24 07:00 02/07/24 09:34 02/07/24 07:00 02/07/24 09:34 02/07/24 08:00
02/06/24 02/07/24 02/08/24
06:59 06:59 06:59
Actual Weight 78.9 kg 77.2 kg
02/07/24 04:37
02/07/24 04:36
Magnesium 2.1 mg/dl (1.6-2.3) 02/07/24 04:36
02/02/24
06:35
Lgg-X-Klmofrwzuqr Pept 6480
Physical Exam
Constitutional: No acute distress and Comfortable
EENT: Anicteric
Cardiovascular: Rhythm & rate is regular, Pedal edema is absent, Systolic murmur present (10/21) and S1S2 is normal
Respiratory: Respiratory effort normal and Other (Decreased bibasilar breath sounds)
GI: Soft
Neuro/Psych: AO x 3
Other: Skin (Warm, dry, intact)
Data Reviewed
-
Date of Service: February 07, 2024
EKG: Tracing Personally Visualized and interpreted (Telemetry: Sinus rhythm)
Medical Tests (PFT, Pathology etc): Discussed with Patient
Labs: Labs Reviewed by me
[2024-02-07 11:04] VITALS: BP 111/68
--- NOTE | 2024-02-07 14:30 | PTCARENOTE ---
Pt with no c/o this am, states she feels much better. Pt discharged to home with her daughter. Discharge instructions given and reviewed with good understanding.
--- NOTE | 2024-02-07 18:21 | W.DCSUMMARY ---
Discharge Summary
Discharge Data
Date of Admission: 01/30/24
Date of Discharge: 02/07/24
-
Pending Results: No
Hospital Course
Discharge diagnoses:
Acute hypoxic respiratory sufficiency
Acute on chronic heart failure with preserved ejection fraction
Chronic obstructive pulmonary disease
Dizziness
Acute left fifth metatarsal fracture
Acute kidney injury secondary to Bactrim
Acute urinary tract infection
Constipation
Hyponatremia
Chronic normocytic anemia of chronic disease
Recent left carotid endarterectomy on 01/16/2024
Coronary artery disease status post stent placement
Aortic stenosis status post valve replacement
Essential hypertension
History of type 2 diabetes, now prediabetic with a hemoglobin A1c of 6.0
Chronic back pain secondary to spinal stenosis on chronic opioids
Anxiety/depression
Consults: Cardiology, pulmonology
Hospital course:
63-year-old female with a past medical history of chronic back pain with opiate dependence, neck fusion, CAD status post stent, aortic stenosis status post valve replacement, carotid stenosis status post left carotid endarterectomy on 01/16/2024,
prior right-sided carotid surgery 5 years ago, hypertension, hyperlipidemia, GERD, diabetes, COPD, anxiety/depression, and kidney stones was admitted for dizziness and fatigue. She was found to have acute kidney injury and orthostasis. She has
been taking Bactrim for urinary tract infection.
Bactrim was discontinued, she received IV fluids. Her orthostasis and dizziness resolved. She was switched to Keflex, and completed a course of Keflex for her urinary tract infection.
Patient also had injury of her left lateral foot. X-ray showed an acute fracture of the left fifth metatarsal. Podiatry recommend she wears a walking shoe with ambulation, weightbearing as tolerated. She can follow-up with podiatry in the office
in 4-6 weeks.
Patient's hospital course was complicated by acute hypoxic respiratory sufficiency, requiring 2 L of oxygen. She was seen in conjunction with both pulmonology and cardiology. Pulmonology diagnosed her with COPD, and recommends bronchodilators in
the hospital, and albuterol inhaler upon discharge.
She was found to have acute heart failure with preserved ejection fraction. She was diuresed with Lasix 40 mg IV twice daily. This was increased to Lasix 80 mg IV twice daily. She lost over 22 pounds of fluid. Her hypoxia resolved. She is
medically stable and cleared by cardiology for discharge. Cardiology recommends her increasing her Lasix to 80 mg daily, increased from her previous dose of 40 mg daily. She can follow-up with her usual dictaphone transcriber, Dr. Barroso, in the office in
2-3 weeks.
Patient also has opioid-induced constipation. She has chronic back pain from spinal stenosis. She is on oxycodone/acetaminophen 10/325 every 4 hours. She remains opioid dependent. She received an aggressive bowel regimen, her constipation
resolved. She will be discharged on MiraLAX once a day.
Patient was seen with conjunction with PT, who recommended short-term rehab. Patient declines, wishes to go home with home PT.
Patient's multiple medical conditions have been optimized. She needs to follow-up with her primary care doctor in 1 week, cardiology in 2-3 weeks, as well as podiatry in the office in 4-6 weeks.
Disposition: Home with home care
Discharge planning: Required 40 minutes
Discharge Plan
-
Patient Disposition: Home with Home Care
Discharge Diagnosis/Procedures: Acute hypoxic respiratory insufficiency, congestive heart failure, dizziness, acute left fifth metatarsal fracture, constipation, acute urinary tract infection, acute kidney injury, hyponatremia, recent left carotid
endarterectomy, history of diabetes - now glucose intolerance, chronic back pain, chronic obstructive pulmonary disease
Condition: Good
Diet: Low Fat, Low Cholesterol and 2 Gram Sodium
Activity: As tolerated
Additional Activity: Must wear left surgical shoe with walking
Driving Restrictions: Not until cleared by podiatry
Other Services: VN and PT
Activity Restrictions/Additional Instructions:
Please adhere to a low-salt diet.
Cardiology recommends you taking Lasix 80 mg daily.
Follow-up with your usual dictaphone transcriber Dr. Barroso in the office in 2-3 weeks.
Follow-up with your primary care doctor in 1 week, and podiatry in the office in 4-6 weeks.
Referrals:
[facility] [Outside] ( )
Lio Jules DPM [Specified Professional Personl] - in four to six weeks
Fransisco Reese MD [Family Provider] - in one week
Prescriptions:
New
polyethylene glycol 3350 17 gram/dose powder
17 g PO DAILY Qty: 510 0RF
albuterol sulfate 90 mcg/actuation HFA aerosol inhaler
2 puff inhalation Q4H PRN (Reason: shortness of breath or wheezing) Qty: 8.5 0RF
Rx Instructions:
please give with spacer, thank you
Continued
gabapentin 600 mg Tablet
600 mg PO TID
aspirin 81 mg Tablet,Delayed Release (Dr/Ec)
81 mg PO DAILY
acetaminophen 650 mg Tablet Extended Release
1,300 mg PO BIDPRN PRN (Reason: mild pain)
ferrous sulfate [FeroSul] 325 mg (65 mg iron) Tablet
325 mg PO DAILY Qty: 30 0RF
pantoprazole 40 mg Tablet,Delayed Release (Dr/Ec)
40 mg PO DAILY Qty: 30 0RF
citalopram 40 mg Tablet
40 mg PO HS Qty: 10 0RF
atorvastatin [Lipitor] 20 mg Tablet
20 mg PO QPM
diazepam 5 mg Tablet
5 mg PO HSPRN PRN (Reason: SLEEP)
metformin 500 mg tablet
500 mg PO BID@0800,1700
atenolol 25 mg Tablet
25 mg PO QPM Qty: 30 0RF
oxycodone-acetaminophen 10-325 mg Tablet
1 tab PO Q4HPRN PRN (Reason: SEVERE PAIN) Qty: 30 0RF
Changed
furosemide [Lasix] 40 mg Tablet
80 mg PO DAILY Qty: 60 0RF
Discontinued
sulfamethoxazole-trimethoprim 800-160 mg tablet
1 tab PO BID
Patient Comments:
PATIENT MANAGER OPERATIONS RESEARCH ON 01/24/24 FOR 14 DAYS
Discharge Orders:
Discharge Patient (As Directed); Ordered 02/07/24
Ordered By: Arthur Morgan
Care Plan Goals
Care Plan Goals:
Problem: Readiness for enhanced knowledge related to diagnosis and treatment plan
Goal: Understand your diagnosis and treatment plan needs, including medications if applicable.
Instructions: Know your diagnosis, underlying causes and treatment plan options, including medications if applicable. Consult with your health care team to learn about your diagnosis and treatment plan, including medications if applicable.
Discharge Date and Time
Discharge Date/Time: 02/07/24 16:00
Print Language: SWEDISH
== END 2024-02-07 16:00 | disposition home health service (06) | DRG 682 ==
LOC: IVU 19:31
PROVIDERS: Internal Medicine; Registered Nurse; ADMITTING PHYSICIAN Hospitalist; ATTENDING PHYSICIAN Family Medicine; CONSULT PHYSICIAN Internal Medicine Cardiovascular Disease; EMERGENCY PHYSICIAN Emergency Medicine; FAMILY PHYSICIAN Family Medicine; OTHER PHYSICIAN Internal Medicine Critical Care Medicine
DX: N17.9 Acute kidney failure, unspecified (principal); I50.33 Acute on chronic diastolic (congestive) heart failure; E87.1 Hypo-osmolality and hyponatremia; N39.0 Urinary tract infection, site not specified; Z66 Do not resuscitate; D63.8 Anemia in other chronic diseases classified elsewhere; T36.8X5A Adverse effect of other systemic antibiotics, initial encounter; B96.1 Klebsiella pneumoniae [K. pneumoniae] as the cause of diseases classified elsewhere; I25.10 Atherosclerotic heart disease of native coronary artery without angina pectoris; Z95.5 Presence of coronary angioplasty implant and graft; I11.0 Hypertensive heart disease with heart failure; K21.9 Gastro-esophageal reflux disease without esophagitis; E11.9 Type 2 diabetes mellitus without complications; J44.9 Chronic obstructive pulmonary disease, unspecified; F32.A Depression, unspecified; F41.9 Anxiety disorder, unspecified; G89.29 Other chronic pain; M48.00 Spinal stenosis, site unspecified; Z87.891 Personal history of nicotine dependence; I27.20 Pulmonary hypertension, unspecified; E78.00 Pure hypercholesterolemia, unspecified; I65.29 Occlusion and stenosis of unspecified carotid artery; K59.03 Drug induced constipation; R06.89 Other abnormalities of breathing; I08.3 Combined rheumatic disorders of mitral, aortic and tricuspid valves; Z95.3 Presence of xenogenic heart valve; S92.352A Displaced fracture of fifth metatarsal bone, left foot, initial encounter for closed fracture; M54.9 Dorsalgia, unspecified
CPT/HCPCS: 71046; 73630; 80048; 80053; 81003; 81015; 82550; 82607; 82728; 82746; 82962; 83036; 83540; 83550; 83735; 83880; 83930; 83935; 84100; 84300; 85014; 85018; 85025; 85027; 86803; 86850; 86900; 86901; 86920; 87077; 87086; 87186; 93005; 93306; 94761; 94762; 96360; 97116; 97163; 97166; 97530; 97535; 99285; P9016